=== PATIENT | female | born 1940 | race Two or more races ===

== ENCOUNTER 2018-07-28 22:35 | Inpatient (IN) | payer MEDICARE, MEDICAID ==
[~2018-07-28] VITALS: Ht 162.6 cm; Wt 69.4 kg
[~2018-07-28 22:35] MED LIST: AMLO10TA80 PO; DONE5TAB7 MT; DOXY100C2 PO; GABA-531 MT; METO-539 PO; MULT-1146 MT; PROT40 MT
[2018-07-28 23:30] VITALS: BP 136/62
[2018-07-29 00:30] VITALS: BP 130/56
[2018-07-29] MEDS ORDERED: MORPHINE SULFATE 4 MG/ML CPJ (NOT FOR IM USE) IV PRN (03:30)
[2018-07-29] MEDS ORDERED: ACETAMINOPHEN 325MG TABLET PO PRN ×2 (03:30→10:30)
[2018-07-29] MEDS ORDERED: ONDANSETRON HCL 4MG/2ML INJ IV PRN ×2 (03:30→10:30)
[2018-07-29] MEDS ORDERED: CLONIDINE 0.1MG TABLET PO PRN (03:30)
[2018-07-29 04:00] VITALS: BP 151/57
[2018-07-29] MEDS: PANTOPRAZOLE 40MG DR TABLET PO SCH (07:01)
[2018-07-29 08:00] VITALS: BP 150/58
[2018-07-29] MEDS ORDERED: MEDICATION NOT ON FORMULARY EA (Multivitamin (Multi Vitamin Daily) 1 TAB) MT SCH (09:00)
[2018-07-29] MEDS ORDERED: MEDICATION NOT ON FORMULARY EA (Pantoprazole Sodium (Protonix) 1 TAB) MT SCH (09:00)
[2018-07-29] MEDS ORDERED: MEDICATION NOT ON FORMULARY EA (Metoprolol Tartrate 25 MG) PO SCH (09:00)
[2018-07-29] MEDS: DONEPEZIL HCL 5MG TABLET PO SCH (09:26)
[2018-07-29] MEDS: AMLODIPINE 10MG TABLET PO SCH (09:27)
[2018-07-29] MEDS: MULTIVITAMINS,THER W-MINERALS TABLET PO SCH (09:27)
[2018-07-29] MEDS: METOPROLOL TARTRATE 25MG TABLET PO SCH (09:28)
[2018-07-29 09:40] LABS: BASOPHILS % 0.7 % (0.0-2.0); EOSINOPHILS % 0.6 % (0.0-5.0); HEMATOCRIT. 37.8 % (36.0-48.0); HEMOGLOBIN. 12.5 g/dL (12.0-16.0); LYMPHOCYTES % 25.3 % (20.0-50.0); MEAN CORPUSCULAR HEMOGLOBIN 29.3 pg (28.0-32.0); MEAN CORPUSCULAR VOLUME 88.1 fL (81.0-99.0); MEAN PLATELET VOLUME 8.4 fl (7.4-10.4); MONOCYTES % 6.1 % (2.0-8.0); NEUTROPHILS % 67.3 % (40.0-76.0); PLATELET 253 x1000/uL (130-400); RED BLOOD CELL COUNT 4.29 mill/uL (4.2-5.4); RED CELL DISTRIBUTION WIDTH 16.1 % (11.6-14.6)
[2018-07-29 10:08] LABS: CHLORIDE 110 mEq/L (98-107)
[2018-07-29] MEDS ORDERED: TRAMADOL 50MG TABLET PO PRN (10:30)
[2018-07-29] MEDS ORDERED: NA PHOS,M-B/NA PHOS,DI-BA ENEMA 118ML PR PRN (10:30)
[2018-07-29] MEDS ORDERED: DOCUSATE SODIUM 100MG CAPSULE PO PRN (10:30)
[2018-07-29] MEDS ORDERED: ZOLPIDEM TARTRATE 5MG TABLET PO PRN (10:30)
[2018-07-29] MEDS ORDERED: IPRATROPIUM/ALBUTEROL 0.5-3(2.5)MG/3ML NEB INH PRN (10:30)
[2018-07-29] MEDS ORDERED: MAGNESIUM/ALUMINUM HYDROXIDE/SIMETHICONE 30ML UDC PO PRN (10:30)
[2018-07-29] MEDS ORDERED: NITROGLYCERIN 0.4MG TABLET SL SL PRN (10:30)
[2018-07-29] MEDS ORDERED: VANCOMYCIN 1250MG in DEXTROSE 5% WATER 250ML IV NR ×3 (11:00→12:30)
[2018-07-29] MEDS ORDERED: LIDOCAINE HCL/PF 1% 10 MG/ML 5ML VIAL IJ NR (11:30)
[2018-07-29 12:00] VITALS: BP 147/61
[2018-07-29] MEDS: FAMOTIDINE 20MG TABLET PO SCH (12:35)
[2018-07-29] MEDS: PIPERACILLIN/TAZ 3.375G PREMIX 50 ML IV SCH ×2 (12:36→20:51)
[2018-07-29] MEDS: ENOXAPARIN 40MG/0.4ML SYR SUBCUT SCH (12:36)
[2018-07-29] MEDS ORDERED: DEXTROSE 50% WATER 50ML SYRINGE IV PRN (13:00)
[2018-07-29 15:33] LABS: T4 FREE 1.32 ng/dL (0.76-1.46)
[2018-07-29 16:01] LABS: FOLIC ACID (FOLATE) SERUM 14.3 ng/mL (>5.38)
[2018-07-29] MEDS: INSULIN LISPRO 100 UNITS/ML SUBCUT SCH ×2 (17:27→20:55)
[2018-07-29] MEDS: BLOOD SUGAR DIAGNOSTIC STRIP TEST SCH ×2 (17:27→20:55)
[2018-07-29 20:00] VITALS: BP 117/55
[2018-07-29] MEDS: GABAPENTIN 300MG CAPSULE PO SCH (20:47)
[2018-07-29] MEDS: ASCORBIC ACID 500 MG TABLET PO SCH (20:47)
[2018-07-29] MEDS ORDERED: MEDICATION NOT ON FORMULARY EA (Gabapentin 1 CAP) MT SCH (21:00)
[2018-07-30] VITALS: BP 112/56
[2018-07-30] MEDS ORDERED: LIDOCAINE HCL/PF 1% 10 MG/ML 30ML VIAL INFIL NR (01:00)
[2018-07-30 04:00] VITALS: BP 114/64
[2018-07-30] MEDS: PIPERACILLIN/TAZ 3.375G PREMIX 50 ML IV SCH ×3 (04:54→22:53)
[2018-07-30] MEDS ORDERED: VANCOMYCIN 750 MG PREMIX 150 ML IV SCH (06:00)
[2018-07-30] MEDS: PANTOPRAZOLE 40MG DR TABLET PO SCH (06:33)
[2018-07-30] MEDS: BLOOD SUGAR DIAGNOSTIC STRIP TEST SCH ×4 (06:49→21:12)
[2018-07-30] MEDS: INSULIN LISPRO 100 UNITS/ML SUBCUT SCH ×4 (07:50→21:00)
[2018-07-30 08:00] VITALS: BP 156/68
[2018-07-30] MEDS: VANCOMYCIN 1 G PREMIX 200 ML IV SCH (09:36)
[2018-07-30] MEDS: ENOXAPARIN 40MG/0.4ML SYR SUBCUT SCH (09:36)
[2018-07-30] MEDS: METOPROLOL TARTRATE 25MG TABLET PO SCH (09:37)
[2018-07-30] MEDS: ZINC SULFATE 220 MG ( 50 ) CAPSULE PO SCH (09:37)
[2018-07-30] MEDS: AMLODIPINE 10MG TABLET PO SCH (09:39)
[2018-07-30] MEDS: DONEPEZIL HCL 5MG TABLET PO SCH (09:39)
[2018-07-30] MEDS: FAMOTIDINE 20MG TABLET PO SCH (09:39)
[2018-07-30] MEDS: MULTIVITAMINS,THER W-MINERALS TABLET PO SCH (09:39)
[2018-07-30] MEDS: ASCORBIC ACID 500 MG TABLET PO SCH ×2 (09:43→20:50)
[2018-07-30 12:00] VITALS: BP 138/69
[2018-07-30] MEDS ORDERED: NEOMY SULF/BACITRAC ZN/POLY OINT 28GM TOP PRN (12:00)
[2018-07-30 16:00] VITALS: BP 112/53
[2018-07-30 20:00] VITALS: BP 146/61
[2018-07-30] MEDS: GABAPENTIN 300MG CAPSULE PO SCH (20:50)
[2018-07-31 00:10] VITALS: BP 146/64
[2018-07-31] MEDS: VANCOMYCIN 1 G PREMIX 200 ML IV SCH (03:14)
[2018-07-31 04:00] VITALS: BP 147/63
[2018-07-31] MEDS: PIPERACILLIN/TAZ 3.375G PREMIX 50 ML IV SCH ×2 (06:16→14:50)
[2018-07-31] MEDS: PANTOPRAZOLE 40MG DR TABLET PO SCH (06:55)
[2018-07-31] MEDS: BLOOD SUGAR DIAGNOSTIC STRIP TEST SCH ×4 (06:56→22:24)
[2018-07-31] MEDS: INSULIN LISPRO 100 UNITS/ML SUBCUT SCH ×4 (07:50→21:00)
[2018-07-31 08:00] VITALS: BP 133/58
[2018-07-31] MEDS: MULTIVITAMINS,THER W-MINERALS TABLET PO SCH (09:59)
[2018-07-31] MEDS: AMLODIPINE 5MG TABLET PO SCH (09:59)
[2018-07-31] MEDS: ASCORBIC ACID 500 MG TABLET PO SCH ×2 (10:00→22:09)
[2018-07-31] MEDS: DONEPEZIL HCL 5MG TABLET PO SCH (10:00)
[2018-07-31] MEDS: FAMOTIDINE 20MG TABLET PO SCH (10:00)
[2018-07-31] MEDS: METOPROLOL TARTRATE 25MG TABLET PO SCH (10:01)
[2018-07-31] MEDS: ENOXAPARIN 40MG/0.4ML SYR SUBCUT SCH (10:01)
[2018-07-31 12:00] VITALS: BP 115/53
[2018-07-31] MEDS: ZINC SULFATE 220 MG ( 50 ) CAPSULE PO SCH (14:31)
[2018-07-31 15:41] LABS: CLARITY URINE CLEAR (CLEAR); COLOR URINE YELLOW (YELLOW); KETONES URINE NEGATIVE (NEGATIVE); LEUKOCYTE ESTERASE URINE 1+ (NEGATIVE); NITRITE URINE NEGATIVE (NEGATIVE); OCCULT BLOOD URINE NEGATIVE (NEGATIVE); PROTEIN URINE NEGATIVE (NEGATIVE); SPECIFIC GRAVITY URINE 1.016 (1.005-1.030); UROBILINOGEN URINE 0.2 E.U./dL (0.2-1.0)
[2018-07-31 20:00] VITALS: BP 128/56
[2018-07-31] MEDS: GABAPENTIN 300MG CAPSULE PO SCH (22:09)
[2018-08-01] VITALS: BP 128/66
[2018-08-01] MEDS: PIPERACILLIN/TAZ 3.375G PREMIX 50 ML IV SCH ×4 (00:01→20:44)
[2018-08-01] MEDS: VANCOMYCIN 1 G PREMIX 200 ML IV SCH (00:02)
[2018-08-01 04:00] VITALS: BP 129/65
[2018-08-01 07:06] LABS: CHLORIDE 108 mEq/L (98-107)
[2018-08-01] MEDS: INSULIN LISPRO 100 UNITS/ML SUBCUT SCH ×4 (07:29→20:44)
[2018-08-01] MEDS: BLOOD SUGAR DIAGNOSTIC STRIP TEST SCH ×4 (07:29→20:44)
[2018-08-01 08:00] VITALS: BP 112/79
[2018-08-01] MEDS: ZINC SULFATE 220 MG ( 50 ) CAPSULE PO SCH (08:37)
[2018-08-01] MEDS: MULTIVITAMINS,THER W-MINERALS TABLET PO SCH (08:37)
[2018-08-01] MEDS: FAMOTIDINE 20MG TABLET PO SCH (08:37)
[2018-08-01] MEDS: DONEPEZIL HCL 5MG TABLET PO SCH (08:37)
[2018-08-01] MEDS: ASCORBIC ACID 500 MG TABLET PO SCH ×2 (08:37→20:44)
[2018-08-01] MEDS: METOPROLOL TARTRATE 25MG TABLET PO SCH (08:38)
[2018-08-01] MEDS: ENOXAPARIN 40MG/0.4ML SYR SUBCUT SCH (08:38)
[2018-08-01] MEDS: AMLODIPINE 5MG TABLET PO SCH (08:38)
[2018-08-01 12:00] VITALS: BP 155/58
[2018-08-01 16:00] VITALS: BP 150/75
[2018-08-01] MEDS: VANCOMYCIN 750 MG PREMIX 150 ML IV SCH (17:36)
[2018-08-01 20:00] VITALS: BP 144/63
[2018-08-01] MEDS: GABAPENTIN 300MG CAPSULE PO SCH (20:44)
[2018-08-02] VITALS: BP 141/66
[2018-08-02 04:00] VITALS: BP 134/72
[2018-08-02] MEDS: PIPERACILLIN/TAZ 3.375G PREMIX 50 ML IV SCH ×3 (04:00→20:00)
[2018-08-02] MEDS: VANCOMYCIN 750 MG PREMIX 150 ML IV SCH ×2 (06:00→18:00)
[2018-08-02] MEDS: INSULIN LISPRO 100 UNITS/ML SUBCUT SCH ×4 (06:38→21:00)
[2018-08-02] MEDS: BLOOD SUGAR DIAGNOSTIC STRIP TEST SCH ×4 (06:38→21:00)
[2018-08-02 08:00] VITALS: BP 125/51
[2018-08-02] MEDS: AMLODIPINE 5MG TABLET PO SCH (09:19)
[2018-08-02] MEDS: DONEPEZIL HCL 5MG TABLET PO SCH (09:19)
[2018-08-02] MEDS: ZINC SULFATE 220 MG ( 50 ) CAPSULE PO SCH (09:19)
[2018-08-02] MEDS: MULTIVITAMINS,THER W-MINERALS TABLET PO SCH (09:19)
[2018-08-02] MEDS: METOPROLOL TARTRATE 25MG TABLET PO SCH (09:20)
[2018-08-02] MEDS: FAMOTIDINE 20MG TABLET PO SCH (09:20)
[2018-08-02] MEDS: ENOXAPARIN 40MG/0.4ML SYR SUBCUT SCH (09:21)
[2018-08-02] MEDS: ASCORBIC ACID 500 MG TABLET PO SCH ×2 (09:28→22:31)
[2018-08-02 12:00] VITALS: BP 132/71
[2018-08-02 16:00] VITALS: BP 123/51
[2018-08-02] MEDS: GABAPENTIN 300MG CAPSULE PO SCH (22:32)
[2018-08-03 04:00] VITALS: BP 104/56
[2018-08-03] MEDS: PIPERACILLIN/TAZ 3.375G PREMIX 50 ML IV SCH (04:00)
[2018-08-03] MEDS ORDERED: ZOLPIDEM TARTRATE 5MG TABLET PO PRN (04:30)
[2018-08-03] MEDS ORDERED: TRAMADOL 50MG TABLET PO PRN (04:30)
[2018-08-03] MEDS: VANCOMYCIN 750 MG PREMIX 150 ML IV SCH (06:00)
[2018-08-03] MEDS: ZINC SULFATE 220 MG ( 50 ) CAPSULE PO SCH (09:43)
[2018-08-03] MEDS: MULTIVITAMINS,THER W-MINERALS TABLET PO SCH (09:43)
[2018-08-03] MEDS: DONEPEZIL HCL 5MG TABLET PO SCH (09:47)
[2018-08-03] MEDS: METOPROLOL TARTRATE 25MG TABLET PO SCH (09:47)
[2018-08-03] MEDS: FAMOTIDINE 20MG TABLET PO SCH (09:48)
[2018-08-03] MEDS: AMLODIPINE 5MG TABLET PO SCH (09:48)
[2018-08-03] MEDS: ENOXAPARIN 40MG/0.4ML SYR SUBCUT SCH (09:49)
[2018-08-03] MEDS ORDERED: FLUCONAZOLE 200 MG/100ML BAG 100 ML IV NR (11:00)
[2018-08-03] MEDS ORDERED: FLUCONAZOLE 200MG/100ML PREMIX IV NR (11:00)
[2018-08-03 13:55] VITALS: BP 132/64
[2018-08-04] MEDS ORDERED: FLUCONAZOLE 100MG TABLET PO SCH (09:00)
== END 2018-08-03 14:30 | DRG 314 ==
LOC: 6EST 22:35
PROVIDERS: ADMIT Internal Medicine; ATTEND Internal Medicine
PROC: 0JPT3WZ Removal of Totally Implantable Vascular Access Device from Trunk Subcutaneous Tissue and Fascia, Percutaneous Approach (ICD-10-PCS; principal; 2018-07-30)
DX: T80.211A Bloodstream infection due to central venous catheter, initial encounter (principal); A41.9 Sepsis, unspecified organism; N39.0 Urinary tract infection, site not specified; E11.622 Type 2 diabetes mellitus with other skin ulcer; F03.90 Unspecified dementia, unspecified severity, without behavioral disturbance, psychotic disturbance, mood disturbance, and anxiety; I10 Essential (primary) hypertension; K21.9 Gastro-esophageal reflux disease without esophagitis; F20.9 Schizophrenia, unspecified; Y84.8 Other medical procedures as the cause of abnormal reaction of the patient, or of later complication, without mention of misadventure at the time of the procedure; Y92.89 Other specified places as the place of occurrence of the external cause; Z88.2 Allergy status to sulfonamides; Z88.9 Allergy status to unspecified drugs, medicaments and biological substances; Z79.4 Long term (current) use of insulin
CPT/HCPCS: 36415; 71045; 80048; 80061; 80202; 81003; 82607; 82746; 82962; 83036; 83540; 83550; 84439; 84443; 85025; 87040; 87070; 87077; 87086; 87106; 87186; 93005; 93970; C1893; J1450; J1650; J2270; J2543; J3370; J3490; J7040; J7060

== ENCOUNTER 2019-01-08 22:29 | Inpatient (IN) | payer MEDICARE, MEDICAID ==
[~2019-01-08] VITALS: Ht 165.1 cm; Wt 78.3 kg
[2019-01-08] MEDS ORDERED: FAMOTIDINE 20MG/2ML VIAL IV STA (22:50)
[2019-01-08] MEDS ORDERED: ONDANSETRON HCL 4MG/2ML INJ IV STA (22:50)
[2019-01-08] MEDS ORDERED: SODIUM CHLORIDE 0.9% 1,000 ML IV ONE (23:25)
[2019-01-08 23:52] LABS: BASOPHILS % 0.1 % (0.0-2.0); HEMATOCRIT. 35.8 % (36.0-48.0); HEMOGLOBIN. 11.8 g/dL (12.0-16.0); LYMPHOCYTES % 10.4 % (20.0-50.0); MEAN CORPUSCULAR HEMOGLOBIN 29.1 pg (28.0-32.0); MEAN PLATELET VOLUME 8.5 fl (7.4-10.4); NEUTROPHILS % 86.5 % (40.0-76.0); PLATELET 347 x1000/uL (130-400); RED BLOOD CELL COUNT 4.07 mill/uL (4.2-5.4)
[2019-01-08 23:56] LABS: CHLORIDE 79 mEq/L (98-107)
[2019-01-09 00:23] LABS: BG BASE EXCESS 8.9 mmol/L (-2.0-2.0); BG CARBOXYHEMOGLOBIN 0.3 % (0.5-1.5); BG DEOXYHEMOGLOBIN 2.3 % (0.0-5.0); BG FRACTION INSPIRED OXYGEN 21; BG HCO3 ACT 27.2 mmol/L (22.0-26.0); BG METHEMOGLOBIN 0.1 % (0.0-1.5); BG OXYGEN SATURATION 97.7 % (92.0-98.5); BG OXYHEMOGLOBIN 97.3 % (94.0-97.0); BG PCO2 20.7 mmHg (35.0-45.0); BG PH 7.737 (7.350-7.450); BG SAMPLE SITE LEFT BRACHIAL; BG TOTAL HEMOGLOBIN 11.7 g/dL (12.0-18.0); BG VENT MODE ROOM AIR
[2019-01-09] MEDS ORDERED: MORPHINE SULFATE 2 MG/ML CPJ (NOT FOR IM USE) IV ONE (01:00)
[2019-01-09 01:15] LABS: INR 1.1; PARTIAL THROMBOPLASTIN TIME 23.6 sec (23.4-31.0); PROTHROMBIN TIME 11.2 sec (9.1-11.1)
[2019-01-09] MEDS ORDERED: MORPHINE SULFATE 4 MG/ML CPJ (NOT FOR IM USE) IV SCH (01:17)
[2019-01-09 02:30] LABS: CLARITY URINE TURBID (CLEAR); COLOR URINE DARK YELLOW (YELLOW); KETONES URINE TRACE (NEGATIVE); LEUKOCYTE ESTERASE URINE 3+ (NEGATIVE); NITRITE URINE NEGATIVE (NEGATIVE); OCCULT BLOOD URINE 2+ (NEGATIVE); PROTEIN URINE 1+ (NEGATIVE); SPECIFIC GRAVITY URINE 1.013 (1.005-1.030)
[2019-01-09] MEDS ORDERED: SODIUM CHLORIDE 0.9% 1,000 ML IV ONE (05:32)
[2019-01-09 05:42] LABS: HEMATOCRIT. 33.1 % (36.0-48.0); HEMOGLOBIN. 10.9 g/dL (12.0-16.0); MEAN CORPUSCULAR HEMOGLOBIN 29.1 pg (28.0-32.0); MEAN PLATELET VOLUME 8.5 fl (7.4-10.4); PLATELET 354 x1000/uL (130-400); RED BLOOD CELL COUNT 3.76 mill/uL (4.2-5.4); RED CELL DISTRIBUTION WIDTH 15.6 % (11.6-14.6)
[2019-01-09 07:23] LABS: NUCLEATED RED BLOOD CELLS 1 /100 WBC; PLATELET ESTIMATE NORMAL
[2019-01-09 11:00] VITALS: BP 131/85
[2019-01-09] MEDS ORDERED: PANTOPRAZOLE SODIUM 40 MG/VIAL IV SCH (11:45)
[2019-01-09 12:00] VITALS: BP 125/86
[2019-01-09] MEDS ORDERED: ONDANSETRON HCL 4MG/2ML INJ IV PRN (12:15)
[2019-01-09] MEDS ORDERED: FLUCONAZOLE/NS(NEO) 2MG/ML IVPB IV SCH (12:30)
[2019-01-09 13:20] LABS: BG BASE EXCESS 8.2 mmol/L (-2.0-2.0); BG CARBOXYHEMOGLOBIN 0.3 % (0.5-1.5); BG DEOXYHEMOGLOBIN 1.2 % (0.0-5.0); BG FRACTION INSPIRED OXYGEN 28; BG HCO3 ACT 31.7 mmol/L (22.0-26.0); BG METHEMOGLOBIN 0.4 % (0.0-1.5); BG OXYGEN SATURATION 98.8 % (92.0-98.5); BG OXYHEMOGLOBIN 98.1 % (94.0-97.0); BG PCO2 39.8 mmHg (35.0-45.0); BG PH 7.519 (7.350-7.450); BG PO2 168.9 mmHg (75.0-100.0); BG SAMPLE SITE RIGHT BRACHIAL; BG TOTAL HEMOGLOBIN 9.8 g/dL (12.0-18.0); BG VENT MODE NASAL CANNULA
[2019-01-09] MEDS ORDERED: PIPERACILLIN/TAZ 2.25G PREMIX 50 ML IV SCH (14:00)
[2019-01-09] MEDS ORDERED: KCL 20MEQ/100ML PREMIX 100 ML IV NR (14:00)
[2019-01-09] MEDS ORDERED: GENTAMICIN SULFATE 60 MG in SODIUM CHLORIDE 0.9% 50 ML IV NR (14:00)
[2019-01-09] MEDS ORDERED: GENTAMICIN 60MG PREMIX 50 ML IV NR (14:00)
[2019-01-09] MEDS: PANTOPRAZOLE SODIUM 40 MG/VIAL IV SCH ×2 (14:09→17:54)
[2019-01-09] MEDS: DEXT 5%/0.9% NACL 1,000 ML IV SCH (14:10)
[2019-01-09 14:17] LABS: TOTAL IRON BINDING CAPACITY 313 ug/dL (250-450)
[2019-01-09] MEDS ORDERED: FLUCONAZOLE 100MG/50ML in BAG IV SCH (14:30)
[2019-01-09] MEDS ORDERED: VANCOMYCIN 1 G PREMIX 200 ML IV NR ×2 (15:30→22:00)
[2019-01-09 16:00] VITALS: BP 147/112
[2019-01-09 17:00] VITALS: BP 118/47
[2019-01-09 19:47] LABS: BASOPHILS % 0.2 % (0.0-2.0); HEMOGLOBIN. 9.5 g/dL (12.0-16.0); LYMPHOCYTES % 13.7 % (20.0-50.0); MEAN CORPUSCULAR HEMOGLOBIN 29.2 pg (28.0-32.0); MEAN CORPUSCULAR VOLUME 88.8 fL (81.0-99.0); MEAN PLATELET VOLUME 8.2 fl (7.4-10.4); MONOCYTES % 3.2 % (2.0-8.0); NEUTROPHILS % 82.9 % (40.0-76.0); PLATELET 325 x1000/uL (130-400); RED BLOOD CELL COUNT 3.26 mill/uL (4.2-5.4); RED CELL DISTRIBUTION WIDTH 15.3 % (11.6-14.6)
[2019-01-09 19:49] LABS: CHLORIDE 93 mEq/L (98-107)
[2019-01-09 19:55] LABS: PHOSPHORUS 3.8 mg/dL (2.5-4.9)
[2019-01-09] MEDS: PIPERACILLIN/TAZ 2.25G PREMIX 50 ML IV SCH (20:00)
[2019-01-09 20:04] LABS: CLARITY URINE CLOUDY (CLEAR); COLOR URINE YELLOW (YELLOW); KETONES URINE TRACE (NEGATIVE); LEUKOCYTE ESTERASE URINE 2+ (NEGATIVE); NITRITE URINE NEGATIVE (NEGATIVE); OCCULT BLOOD URINE 2+ (NEGATIVE); PROTEIN URINE TRACE (NEGATIVE); SPECIFIC GRAVITY URINE 1.013 (1.005-1.030); UROBILINOGEN URINE 0.2 E.U./dL (0.2-1.0)
[2019-01-10] VITALS: BP 132/54
[2019-01-10] MEDS: DEXT 5%/0.9% NACL 1,000 ML IV SCH ×2 (01:50→14:27)
[2019-01-10] MEDS: PIPERACILLIN/TAZ 2.25G PREMIX 50 ML IV SCH ×4 (02:00→20:29)
[2019-01-10 04:00] VITALS: BP 118/52
[2019-01-10 06:07] LABS: BASOPHILS % 0.1 % (0.0-2.0); EOSINOPHILS % 0.2 % (0.0-5.0); HEMATOCRIT. 29.4 % (36.0-48.0); HEMOGLOBIN. 9.5 g/dL (12.0-16.0); LYMPHOCYTES % 19.4 % (20.0-50.0); MEAN CORPUSCULAR HEMOGLOBIN 28.8 pg (28.0-32.0); MEAN CORPUSCULAR VOLUME 89.3 fL (81.0-99.0); MEAN PLATELET VOLUME 8.1 fl (7.4-10.4); MONOCYTES % 5.1 % (2.0-8.0); NEUTROPHILS % 75.2 % (40.0-76.0); PLATELET 291 x1000/uL (130-400); RED BLOOD CELL COUNT 3.29 mill/uL (4.2-5.4); RED CELL DISTRIBUTION WIDTH 15.3 % (11.6-14.6)
[2019-01-10 06:23] LABS: CHLORIDE 97 mEq/L (98-107)
[2019-01-10 06:53] LABS: GENTAMICIN RANDOM < 0.2 ug/mL
[2019-01-10 08:00] VITALS: BP 104/41
[2019-01-10 08:18] LABS: BG BASE EXCESS 8.8 mmol/L (-2.0-2.0); BG CARBOXYHEMOGLOBIN 0.2 % (0.5-1.5); BG DEOXYHEMOGLOBIN 1.5 % (0.0-5.0); BG FRACTION INSPIRED OXYGEN 21; BG HCO3 ACT 31.5 mmol/L (22.0-26.0); BG METHEMOGLOBIN 0.3 % (0.0-1.5); BG OXYGEN SATURATION 98.5 % (92.0-98.5); BG PCO2 35.5 mmHg (35.0-45.0); BG PH 7.566 (7.350-7.450); BG SAMPLE SITE RIGHT RADIAL; BG TOTAL HEMOGLOBIN 8.3 g/dL (12.0-18.0); BG VENT MODE ROOM AIR
[2019-01-10] MEDS: PANTOPRAZOLE SODIUM 40 MG/VIAL IV SCH ×2 (09:52→17:30)
[2019-01-10 12:19] VITALS: BP 116/41
[2019-01-10] MEDS ORDERED: VANCOMYCIN 750 MG PREMIX 150 ML IV SCH (14:00)
[2019-01-10] MEDS ORDERED: POTASSIUM CHLORIDE 20MEQ TABLET SR PO NR (15:15)
[2019-01-10 17:09] VITALS: BP 105/46
[2019-01-10] MEDS: DEXT 5%/0.9% NACL KCL 20MEQ/L 1,000 ML IV SCH (17:26)
[2019-01-10 20:28] VITALS: BP 125/51
[2019-01-10] MEDS: FLUCONAZOLE 100MG/50ML in BAG IV SCH ×3 (23:53)
[2019-01-11 00:38] VITALS: BP 123/46
[2019-01-11] MEDS: PIPERACILLIN/TAZ 2.25G PREMIX 50 ML IV SCH ×3 (03:02→13:16)
[2019-01-11 04:00] VITALS: BP 108/48
[2019-01-11] MEDS: DEXT 5%/0.9% NACL KCL 20MEQ/L 1,000 ML IV SCH (05:40)
[2019-01-11 07:17] LABS: BASOPHILS % 0.3 % (0.0-2.0); EOSINOPHILS % 0.5 % (0.0-5.0); HEMATOCRIT. 26.8 % (36.0-48.0); HEMOGLOBIN. 8.7 g/dL (12.0-16.0); LYMPHOCYTES % 25.1 % (20.0-50.0); MEAN CORPUSCULAR HEMOGLOBIN 29.2 pg (28.0-32.0); MEAN CORPUSCULAR VOLUME 89.7 fL (81.0-99.0); MEAN PLATELET VOLUME 8.4 fl (7.4-10.4); MONOCYTES % 4.4 % (2.0-8.0); NEUTROPHILS % 69.7 % (40.0-76.0); PLATELET 266 x1000/uL (130-400); RED BLOOD CELL COUNT 2.99 mill/uL (4.2-5.4); RED CELL DISTRIBUTION WIDTH 15.7 % (11.6-14.6)
[2019-01-11] MEDS: PANTOPRAZOLE SODIUM 40 MG/VIAL IV SCH ×2 (07:55→18:34)
[2019-01-11 08:00] VITALS: BP 120/47
[2019-01-11 12:00] VITALS: BP 88/33
[2019-01-11] MEDS ORDERED: KCL 20MEQ/100ML PREMIX 100 ML IV NR (12:00)
[2019-01-11] MEDS: POTASSIUM CHLORIDE INJ 40 MEQ in DEXT 5%/0.9% NACL 1,000 ML IV SCH (15:38)
[2019-01-11 16:00] VITALS: BP 109/56
[2019-01-11] MEDS: MEGESTROL ACETATE 400 MG/10 ML UDC PO SCH (18:34)
[2019-01-11 20:00] VITALS: BP 160/42
[2019-01-11] MEDS: CEPHALEXIN 250 MG/5 ML 100ML PO SCH (21:39)
[2019-01-11] MEDS: MUPIROCIN 2% OINT 22GM NS SCH (21:39)
[2019-01-12] VITALS: BP 127/55
[2019-01-12] MEDS: POTASSIUM CHLORIDE INJ 40 MEQ in DEXT 5%/0.9% NACL 1,000 ML IV SCH (01:36)
[2019-01-12 04:00] VITALS: BP 129/45
[2019-01-12 06:35] LABS: BASOPHILS % 0.3 % (0.0-2.0); EOSINOPHILS % 0.3 % (0.0-5.0); HEMATOCRIT. 26.3 % (36.0-48.0); HEMOGLOBIN. 8.6 g/dL (12.0-16.0); LYMPHOCYTES % 24.5 % (20.0-50.0); MEAN CORPUSCULAR HEMOGLOBIN 29.3 pg (28.0-32.0); MEAN CORPUSCULAR VOLUME 89.4 fL (81.0-99.0); MEAN PLATELET VOLUME 7.8 fl (7.4-10.4); MONOCYTES % 3.5 % (2.0-8.0); NEUTROPHILS % 71.4 % (40.0-76.0); PLATELET 283 x1000/uL (130-400); RED BLOOD CELL COUNT 2.94 mill/uL (4.2-5.4); RED CELL DISTRIBUTION WIDTH 16.3 % (11.6-14.6)
[2019-01-12 06:42] LABS: CHLORIDE 114 mEq/L (98-107)
[2019-01-12] MEDS: CEPHALEXIN 250 MG/5 ML 100ML PO SCH ×3 (06:59→21:13)
[2019-01-12 08:00] VITALS: BP 120/53
[2019-01-12] MEDS: FLUCONAZOLE 100MG TABLET PO SCH (09:41)
[2019-01-12] MEDS: MEGESTROL ACETATE 400 MG/10 ML UDC PO SCH ×2 (09:41→19:04)
[2019-01-12] MEDS: PANTOPRAZOLE SODIUM 40 MG/VIAL IV SCH ×2 (09:42→19:04)
[2019-01-12] MEDS: RISPERIDONE 0.25MG TABLET PO SCH ×2 (09:42→21:13)
[2019-01-12] MEDS: RISPERIDONE 0.25MG TABLET PO PRN ×2 (09:42→09:43)
[2019-01-12] MEDS: MUPIROCIN 2% OINT 22GM NS SCH ×3 (09:42→21:14)
[2019-01-12] MEDS: [UNRECOGNIZED DRUG - REMARK] IV SCH ×6 (11:00→18:30)
[2019-01-12] MEDS ORDERED: POTASSIUM PHOS,M-BASIC-D-BASIC 30 MMOL in DEXT 5% WATER 500 ML IV SCH (11:00)
[2019-01-12 12:00] VITALS: BP 118/53
[2019-01-12] MEDS: POTASSIUM CHLORIDE INJ 30 MEQ in DEXT 5%/0.45% NACL 1000ML 1,000 ML IV SCH ×2 (12:35→18:30)
[2019-01-12 16:00] VITALS: BP 120/53
[2019-01-12 20:00] VITALS: BP 107/65
[2019-01-13 05:30] VITALS: BP 126/60
[2019-01-13] MEDS: CEPHALEXIN 250 MG/5 ML 100ML PO SCH ×3 (05:38→21:18)
[2019-01-13 08:00] VITALS: BP 129/46
[2019-01-13 08:01] LABS: BASOPHILS % 0.4 % (0.0-2.0); EOSINOPHILS % 0.4 % (0.0-5.0); HEMATOCRIT. 29.4 % (36.0-48.0); HEMOGLOBIN. 9.4 g/dL (12.0-16.0); LYMPHOCYTES % 41.5 % (20.0-50.0); MEAN CORPUSCULAR VOLUME 93.9 fL (81.0-99.0); MEAN PLATELET VOLUME 7.9 fl (7.4-10.4); MONOCYTES % 4.7 % (2.0-8.0); PLATELET 268 x1000/uL (130-400); RED BLOOD CELL COUNT 3.13 mill/uL (4.2-5.4); RED CELL DISTRIBUTION WIDTH 17.5 % (11.6-14.6)
[2019-01-13 08:14] LABS: CHLORIDE 115 mEq/L (98-107)
[2019-01-13 08:30] LABS: PHOSPHORUS 1.6 mg/dL (2.5-4.9)
[2019-01-13] MEDS: PANTOPRAZOLE SODIUM 40 MG/VIAL IV SCH ×2 (08:50→18:27)
[2019-01-13] MEDS: MEGESTROL ACETATE 400 MG/10 ML UDC PO SCH ×2 (08:50→18:28)
[2019-01-13] MEDS: RISPERIDONE 0.25MG TABLET PO SCH ×2 (08:51→20:41)
[2019-01-13] MEDS: FLUCONAZOLE 100MG TABLET PO SCH (08:51)
[2019-01-13] MEDS: MUPIROCIN 2% OINT 22GM NS SCH ×2 (08:57→20:41)
[2019-01-13 12:00] VITALS: BP 159/79
[2019-01-13] MEDS: [UNRECOGNIZED DRUG - REMARK] IV SCH ×3 (12:43)
[2019-01-13] MEDS ORDERED: MAGNESIUM 1 G PREMIX 100 ML IV SCH (13:00)
[2019-01-13] MEDS ORDERED: DEXT 5%/0.45% NACL KCL 20MEQ/L 1,000 ML IV ONE (13:00)
[2019-01-13] MEDS ORDERED: SODIUM PHOS,M-BASIC-D-BASIC 30 MM in DEXT 5% WATER 500 ML IV SCH (14:00)
[2019-01-14] VITALS: BP 153/62
[2019-01-14] MEDS: CEPHALEXIN 250 MG/5 ML 100ML PO SCH ×2 (06:10→14:22)
[2019-01-14 08:00] VITALS: BP_SYST 13; BP_SYST 136; BP_DIAS 63
[2019-01-14] MEDS: PANTOPRAZOLE SODIUM 40 MG/VIAL IV SCH ×2 (08:23→17:32)
[2019-01-14] MEDS: FLUCONAZOLE 100MG TABLET PO SCH (08:23)
[2019-01-14] MEDS: MEGESTROL ACETATE 400 MG/10 ML UDC PO SCH ×2 (08:23→17:32)
[2019-01-14] MEDS: ONDANSETRON HCL 4MG/2ML INJ IV PRN ×3 (08:23→18:38)
[2019-01-14 08:24] LABS: CHLORIDE 114 mEq/L (98-107)
[2019-01-14 08:31] LABS: PHOSPHORUS 3.3 mg/dL (2.5-4.9)
[2019-01-14] MEDS: RISPERIDONE 0.25MG TABLET PO SCH ×2 (08:34→21:00)
[2019-01-14] MEDS: MUPIROCIN 2% OINT 22GM NS SCH ×2 (08:35→21:00)
[2019-01-14] MEDS: [UNRECOGNIZED DRUG - REMARK] IV SCH ×3 (08:35)
[2019-01-14 12:00] VITALS: BP 134/63
[2019-01-14] MEDS: CEPHALEXIN 250MG CAPSULE PO SCH ×2 (14:30→22:06)
[2019-01-14] MEDS ORDERED: CEPHALEXIN 250MG CAPSULE PO SCH (14:30)
[2019-01-14 16:00] VITALS: BP 148/67
[2019-01-14 16:53] LABS: HEMATOCRIT. 28.9 % (36.0-48.0); HEMOGLOBIN. 9.5 g/dL (12.0-16.0); MEAN CORPUSCULAR HEMOGLOBIN 29.3 pg (28.0-32.0); MEAN CORPUSCULAR VOLUME 89.4 fL (81.0-99.0); MEAN PLATELET VOLUME 7.5 fl (7.4-10.4); PLATELET 290 x1000/uL (130-400); RED BLOOD CELL COUNT 3.23 mill/uL (4.2-5.4); RED CELL DISTRIBUTION WIDTH 17.2 % (11.6-14.6)
[2019-01-14 17:04] LABS: CHLORIDE 114 mEq/L (98-107)
[2019-01-14 20:00] VITALS: BP 152/55
[2019-01-14] MEDS ORDERED: POTASSIUM PHOS,M-BASIC-D-BASIC 20 MMOL in DEXTROSE 5% WATER 250 ML IV NR (20:00)
[2019-01-14] MEDS ORDERED: MAGNESIUM 4 G PREMIX 100 ML IV NR (20:00)
[2019-01-14 20:59] LABS: PLATELET ESTIMATE NORMAL
[2019-01-15] VITALS: BP 146/60
[2019-01-15 04:00] VITALS: BP 141/62
[2019-01-15] MEDS: CEPHALEXIN 250MG CAPSULE PO SCH (06:23)
[2019-01-15 08:00] VITALS: BP 140/56
[2019-01-15 09:03] LABS: BASOPHILS % 0.5 % (0.0-2.0); EOSINOPHILS % 0.8 % (0.0-5.0); HEMATOCRIT. 28.5 % (36.0-48.0); HEMOGLOBIN. 9.2 g/dL (12.0-16.0); LYMPHOCYTES % 40.6 % (20.0-50.0); MEAN CORPUSCULAR VOLUME 89.9 fL (81.0-99.0); MEAN PLATELET VOLUME 7.7 fl (7.4-10.4); MONOCYTES % 6.5 % (2.0-8.0); NEUTROPHILS % 51.6 % (40.0-76.0); PLATELET 278 x1000/uL (130-400); RED BLOOD CELL COUNT 3.17 mill/uL (4.2-5.4); RED CELL DISTRIBUTION WIDTH 17.4 % (11.6-14.6)
[2019-01-15 09:17] LABS: CHLORIDE 115 mEq/L (98-107)
[2019-01-15 09:25] LABS: PHOSPHORUS 3.3 mg/dL (2.5-4.9)
[2019-01-15] MEDS: MUPIROCIN 2% OINT 22GM NS SCH ×2 (09:42→21:30)
[2019-01-15] MEDS: MEGESTROL ACETATE 400 MG/10 ML UDC PO SCH ×2 (09:42→17:18)
[2019-01-15] MEDS: RISPERIDONE 0.25MG TABLET PO SCH ×2 (09:43→21:30)
[2019-01-15] MEDS: PANTOPRAZOLE SODIUM 40 MG/VIAL IV SCH ×2 (09:43→17:18)
[2019-01-15] MEDS: FLUCONAZOLE 100MG TABLET PO SCH (09:43)
[2019-01-15 10:12] LABS: VITAMIN B12 SERUM 1337 pg/mL (211-911)
[2019-01-15 11:20] VITALS: BP 156/61
[2019-01-15 16:00] VITALS: BP 156/64
[2019-01-15 19:58] LABS: INR 1.1; PROTHROMBIN TIME 10.9 sec (9.1-11.1)
[2019-01-15 20:11] VITALS: BP 163/58
[2019-01-15] MEDS: SODIUM CHLORIDE 0.45% 1,000 ML IV SCH (21:29)
[2019-01-16] VITALS (8 sets, daily range): BP systolic 138–152; BP diastolic 61–72
[2019-01-16] MEDS: PANTOPRAZOLE SODIUM 40 MG/VIAL IV SCH ×2 (08:26→17:00)
[2019-01-16] MEDS: MEGESTROL ACETATE 400 MG/10 ML UDC PO SCH ×2 (08:26→17:00)
[2019-01-16] MEDS: RISPERIDONE 0.25MG TABLET PO SCH (08:27)
[2019-01-16] MEDS: MUPIROCIN 2% OINT 22GM NS SCH (08:27)
[2019-01-16] MEDS: SODIUM CHLORIDE 0.45% 1,000 ML IV SCH ×2 (11:52→23:25)
[2019-01-16] MEDS ORDERED: RISPERIDONE 0.25MG TABLET PO PRN (18:00)
[2019-01-16] MEDS: RISPERIDONE 0.5MG TABLET PO SCH (18:42)
[2019-01-16 19:06] LABS: 25-HYDROXY VITAMIN D3 26 ng/mL (.)
[2019-01-16 23:26] LABS: BASOPHILS % 0.8 % (0.0-2.0); EOSINOPHILS % 0.6 % (0.0-5.0); HEMOGLOBIN. 9.5 g/dL (12.0-16.0); LYMPHOCYTES % 41.1 % (20.0-50.0); MEAN CORPUSCULAR HEMOGLOBIN 29.2 pg (28.0-32.0); MEAN CORPUSCULAR VOLUME 89.7 fL (81.0-99.0); MEAN PLATELET VOLUME 7.5 fl (7.4-10.4); MONOCYTES % 6.6 % (2.0-8.0); NEUTROPHILS % 50.9 % (40.0-76.0); PLATELET 343 x1000/uL (130-400); RED BLOOD CELL COUNT 3.24 mill/uL (4.2-5.4); RED CELL DISTRIBUTION WIDTH 17.7 % (11.6-14.6)
[2019-01-16 23:32] LABS: CHLORIDE 116 mEq/L (98-107)
[2019-01-16 23:36] LABS: AMYLASE 74 IU/L (25-115)
[2019-01-16 23:39] LABS: PHOSPHORUS 2.5 mg/dL (2.5-4.9)
[2019-01-17] MEDS: RISPERIDONE 0.5MG TABLET PO SCH ×3 (02:03→20:35)
[2019-01-17 04:01] VITALS: BP 138/60
[2019-01-17 08:35] VITALS: BP 144/60
[2019-01-17] MEDS: PANTOPRAZOLE SODIUM 40 MG/VIAL IV SCH ×3 (08:50→17:00)
[2019-01-17] MEDS: MEGESTROL ACETATE 400 MG/10 ML UDC PO SCH ×2 (08:50→17:00)
[2019-01-17] MEDS: SODIUM CHLORIDE 0.45% 1,000 ML IV SCH (12:45)
[2019-01-17] MEDS ORDERED: ONDANSETRON 4MG ODT PO PRN (15:00)
[2019-01-17 16:00] VITALS: BP 151/67
[2019-01-17 20:00] VITALS: BP 144/66
[2019-01-18 00:07] VITALS: BP 164/66
[2019-01-18] MEDS: SODIUM CHLORIDE 0.45% 1,000 ML IV SCH ×2 (02:01→13:34)
[2019-01-18] MEDS: RISPERIDONE 0.5MG TABLET PO SCH ×3 (02:34→17:53)
[2019-01-18 04:00] VITALS: BP 140/71
[2019-01-18 07:57] LABS: PHOSPHORUS 2.9 mg/dL (2.5-4.9)
[2019-01-18 08:00] VITALS: BP 149/78
[2019-01-18] MEDS: MULTIVITAMINS,THER W-MINERALS TABLET PO SCH (08:09)
[2019-01-18] MEDS: ZINC SULFATE 220 MG ( 50 ) CAPSULE PO SCH (08:09)
[2019-01-18] MEDS: MEGESTROL ACETATE 400 MG/10 ML UDC PO SCH ×2 (08:09→17:52)
[2019-01-18] MEDS: ASCORBIC ACID 500 MG TABLET PO SCH (08:09)
[2019-01-18 08:14] LABS: BASOPHILS % 0.6 % (0.0-2.0); EOSINOPHILS % 0.2 % (0.0-5.0); HEMATOCRIT. 29.9 % (36.0-48.0); HEMOGLOBIN. 9.5 g/dL (12.0-16.0); LYMPHOCYTES % 31.8 % (20.0-50.0); MEAN CORPUSCULAR HEMOGLOBIN 28.8 pg (28.0-32.0); MEAN CORPUSCULAR VOLUME 90.7 fL (81.0-99.0); MONOCYTES % 6.4 % (2.0-8.0); RED CELL DISTRIBUTION WIDTH 18.3 % (11.6-14.6)
[2019-01-18] MEDS: PANTOPRAZOLE SODIUM 40 MG/VIAL IV SCH ×2 (09:00→17:00)
[2019-01-18 10:51] LABS: PLATELET 382 x1000/uL (130-400)
[2019-01-18 12:00] VITALS: BP 146/81
[2019-01-18 16:00] VITALS: BP 148/70
[2019-01-18 20:00] VITALS: BP 144/52
[2019-01-19] VITALS: BP 136/60
[2019-01-19] MEDS: METOCLOPRAMIDE HCL 5MG TABLET PO SCH ×5 (00:07→23:44)
[2019-01-19] MEDS: RISPERIDONE 0.5MG TABLET PO SCH ×2 (03:11→18:49)
[2019-01-19 04:00] VITALS: BP 140/61
[2019-01-19] MEDS: SODIUM CHLORIDE 0.45% 1,000 ML IV SCH ×2 (04:07→17:14)
[2019-01-19] MEDS ORDERED: ONDANSETRON 4MG ODT PO PRN (06:30)
[2019-01-19 08:07] VITALS: BP 130/85
[2019-01-19] MEDS: PANTOPRAZOLE SODIUM 40 MG/VIAL IV SCH ×2 (09:00→17:00)
[2019-01-19] MEDS: ZINC SULFATE 220 MG ( 50 ) CAPSULE PO SCH (09:38)
[2019-01-19] MEDS: MULTIVITAMINS,THER W-MINERALS TABLET PO SCH (09:38)
[2019-01-19] MEDS: ASCORBIC ACID 500 MG TABLET PO SCH (09:39)
[2019-01-19] MEDS: CETIRIZINE 10MG TABLET PO SCH (09:39)
[2019-01-19] MEDS: MEGESTROL ACETATE 400 MG/10 ML UDC PO SCH ×2 (09:39→17:13)
[2019-01-19] MEDS: RISPERIDONE 0.25MG TABLET PO PRN ×3 (12:00→18:33)
[2019-01-19 12:32] VITALS: BP 150/73
[2019-01-19 16:58] VITALS: BP 125/63
[2019-01-19 20:00] VITALS: BP 134/70
[2019-01-20] VITALS (7 sets, daily range): BP systolic 123–149; BP diastolic 61–80
[2019-01-20] MEDS: RISPERIDONE 0.5MG TABLET PO SCH ×3 (02:29→19:00)
[2019-01-20] MEDS: METOCLOPRAMIDE HCL 5MG TABLET PO SCH ×3 (06:56→18:00)
[2019-01-20] MEDS: SODIUM CHLORIDE 0.45% 1,000 ML IV SCH ×2 (07:25→21:20)
[2019-01-20] MEDS: CETIRIZINE 10MG TABLET PO SCH (09:00)
[2019-01-20] MEDS: PANTOPRAZOLE SODIUM 40 MG/VIAL IV SCH ×2 (09:00→18:50)
[2019-01-20] MEDS: MULTIVITAMINS,THER W-MINERALS TABLET PO SCH (09:00)
[2019-01-20] MEDS: MEGESTROL ACETATE 400 MG/10 ML UDC PO SCH ×2 (09:00→17:00)
[2019-01-20] MEDS: ZINC SULFATE 220 MG ( 50 ) CAPSULE PO SCH (09:00)
[2019-01-20] MEDS: ASCORBIC ACID 500 MG TABLET PO SCH (09:00)
[2019-01-20] MEDS ORDERED: SODIUM BICARBONATE 4% (2.4MEQ) 5ML VIAL IV ONE (13:02)
[2019-01-20] MEDS ORDERED: LIDOCAINE HCL 1% 20ML VIAL (Pyxis) INJ ONE (13:02)
[2019-01-20] MEDS ORDERED: ONDANSETRON HCL 4MG/2ML INJ IV PRN (19:30)
[2019-01-21] MEDS: METOCLOPRAMIDE HCL 10MG/2ML VIAL IV SCH ×4 (00:06→17:54)
[2019-01-21] MEDS: RISPERIDONE 0.25MG TABLET PO PRN ×8 (03:06→03:15)
[2019-01-21] MEDS: RISPERIDONE 0.5MG TABLET PO SCH ×3 (03:23→16:56)
[2019-01-21 04:00] VITALS: BP 110/60
[2019-01-21 08:00] VITALS: BP 142/68
[2019-01-21] MEDS: PANTOPRAZOLE SODIUM 40 MG/VIAL IV SCH ×2 (08:51→17:54)
[2019-01-21] MEDS: ASCORBIC ACID 500 MG TABLET PO SCH (09:00)
[2019-01-21] MEDS: CETIRIZINE 10MG TABLET PO SCH (09:00)
[2019-01-21] MEDS: MEGESTROL ACETATE 400 MG/10 ML UDC PO SCH ×2 (09:00→16:56)
[2019-01-21] MEDS: ZINC SULFATE 220 MG ( 50 ) CAPSULE PO SCH (09:00)
[2019-01-21] MEDS: MULTIVITAMINS,THER W-MINERALS TABLET PO SCH (09:00)
[2019-01-21] MEDS ORDERED: CEFAZOLIN SODIUM 1000MG/VIAL IM ONE (09:45)
[2019-01-21] MEDS: SODIUM CHLORIDE 0.45% 1,000 ML IV SCH ×2 (10:05→22:52)
[2019-01-21] MEDS ORDERED: IOHEXOL-300 100 ML BOTTLE ONE (11:45)
[2019-01-21] MEDS ORDERED: CEFAZOLIN 1000MG PREMIX 50 ML IV SCH (12:00)
[2019-01-21 14:00] VITALS: BP 130/52
[2019-01-21] MEDS ORDERED: SODIUM CHLORIDE 0.9% 10ML VIAL ONE (15:34)
[2019-01-21 16:51] VITALS: BP 156/67
[2019-01-21 20:00] VITALS: BP 124/64
[2019-01-22] VITALS (7 sets, daily range): BP systolic 122–152; BP diastolic 52–69
[2019-01-22] MEDS: METOCLOPRAMIDE HCL 10MG/2ML VIAL IV SCH ×4 (02:45→17:38)
[2019-01-22] MEDS: RISPERIDONE 0.5MG TABLET PO SCH ×3 (02:47→11:00)
[2019-01-22] MEDS: MULTIVITAMINS,THER W-MINERALS TABLET PO SCH (08:02)
[2019-01-22] MEDS: ZINC SULFATE 220 MG ( 50 ) CAPSULE PO SCH (08:02)
[2019-01-22] MEDS: MEGESTROL ACETATE 400 MG/10 ML UDC PO SCH ×2 (08:02→08:03)
[2019-01-22] MEDS: ASCORBIC ACID 500 MG TABLET PO SCH (08:02)
[2019-01-22] MEDS: CETIRIZINE 10MG TABLET PO SCH ×2 (08:03→09:00)
[2019-01-22] MEDS: PANTOPRAZOLE SODIUM 40 MG/VIAL IV SCH ×2 (08:53→17:38)
[2019-01-22] MEDS: SODIUM CHLORIDE 0.45% 1,000 ML IV SCH (10:00)
[2019-01-22] MEDS ORDERED: LIDOCAINE HCL 1% 20ML VIAL (Pyxis) INJ ONE (10:07)
[2019-01-22] MEDS ORDERED: LORAZEPAM 2MG/ML CPJ IV PRN (11:30)
[2019-01-22] MEDS: RISPERIDONE 0.25MG TABLET PO PRN (19:11)
[2019-01-22 20:03] LABS: BASOPHILS % 0.5 % (0.0-2.0); HEMATOCRIT. 29.6 % (36.0-48.0); HEMOGLOBIN. 9.6 g/dL (12.0-16.0); LYMPHOCYTES % 14.6 % (20.0-50.0); MEAN CORPUSCULAR HEMOGLOBIN 29.7 pg (28.0-32.0); MEAN CORPUSCULAR VOLUME 91.8 fL (81.0-99.0); MONOCYTES % 5.1 % (2.0-8.0); NEUTROPHILS % 79.8 % (40.0-76.0); PLATELET 248 x1000/uL (130-400); RED BLOOD CELL COUNT 3.22 mill/uL (4.2-5.4); RED CELL DISTRIBUTION WIDTH 19.1 % (11.6-14.6)
[2019-01-22 20:22] LABS: CHLORIDE 118 mEq/L (98-107)
[2019-01-22] MEDS: FOLIC ACID 1 MG, THIAMINE HCL 100 MG, MVI, ADULT NO.1 10 ML in DEXTROSE 5% WATER 1,000 ML IV SCH ×4 (20:48)
[2019-01-22] MEDS ORDERED: KCL 10 MEQ/50 ML IV ONE ×4 (23:45)
[2019-01-23] MEDS ORDERED: KCL 10 MEQ/50 ML IV ONE
[2019-01-23] MEDS: METOCLOPRAMIDE HCL 10MG/2ML VIAL IV SCH ×4 (00:35→18:00)
[2019-01-23] MEDS ORDERED: POTASSIUM CHLORIDE INJ 50 MEQ in DEXT 5% WATER 500 ML IV SCH (01:00)
[2019-01-23] MEDS ORDERED: POTASSIUM CHLORIDE IV SCH (01:00)
[2019-01-23] MEDS ORDERED: WATER IV SCH (01:00)
[2019-01-23] MEDS ORDERED: DEXT 5% IV SCH (01:00)
[2019-01-23] MEDS: KCL 20MEQ/100ML PREMIX 100 ML IV SCH ×2 (01:36→03:27)
[2019-01-23] MEDS: RISPERIDONE 0.5MG TABLET PO SCH ×3 (03:25→15:47)
[2019-01-23] MEDS: SODIUM CHLORIDE 0.45% 1,000 ML IV SCH ×2 (03:26→13:07)
[2019-01-23 08:20] VITALS: BP 119/50
[2019-01-23 08:22] LABS: BASOPHILS % 0.2 % (0.0-2.0); HEMATOCRIT. 29.5 % (36.0-48.0); HEMOGLOBIN. 9.1 g/dL (12.0-16.0); LYMPHOCYTES % 13.5 % (20.0-50.0); MEAN CORPUSCULAR HEMOGLOBIN 28.8 pg (28.0-32.0); MEAN CORPUSCULAR VOLUME 92.9 fL (81.0-99.0); MEAN PLATELET VOLUME 7.5 fl (7.4-10.4); NEUTROPHILS % 81.3 % (40.0-76.0); PLATELET 262 x1000/uL (130-400); RED BLOOD CELL COUNT 3.18 mill/uL (4.2-5.4); RED CELL DISTRIBUTION WIDTH 19.7 % (11.6-14.6)
[2019-01-23 08:48] LABS: PHOSPHORUS 2.7 mg/dL (2.5-4.9)
[2019-01-23] MEDS: PANTOPRAZOLE SODIUM 40 MG/VIAL IV SCH ×2 (09:00→17:00)
[2019-01-23] MEDS: ASCORBIC ACID 500 MG TABLET PO SCH (09:00)
[2019-01-23] MEDS: CETIRIZINE 10MG TABLET PO SCH (09:00)
[2019-01-23] MEDS: ZINC SULFATE 220 MG ( 50 ) CAPSULE PO SCH (09:00)
[2019-01-23] MEDS: MEGESTROL ACETATE 400 MG/10 ML UDC PO SCH ×2 (09:00→15:47)
[2019-01-23 12:59] VITALS: BP 116/53
[2019-01-23] MEDS ORDERED: LORAZEPAM 2MG/ML CPJ IM ONE (13:15)
[2019-01-23] MEDS ORDERED: HALOPERIDOL LACTATE 5MG/ML VIAL IM SCH (14:00)
[2019-01-23] MEDS ORDERED: DIPHENHYDRAMINE 50MG/ML VIAL IM PRN (14:00)
[2019-01-23] MEDS ORDERED: LIDOCAINE HCL 1% 20ML VIAL (Pyxis) INJ ONE (14:04)
[2019-01-23] MEDS ORDERED: SODIUM BICARBONATE 4% (2.4MEQ) 5ML VIAL IV ONE (14:04)
[2019-01-23 17:29] VITALS: BP 112/54
[2019-01-23 20:11] VITALS: BP 110/53
[2019-01-23] MEDS: FOLIC ACID 1 MG, THIAMINE HCL 100 MG, MVI, ADULT NO.1 10 ML in DEXTROSE 5% WATER 1,000 ML IV SCH ×4 (21:00)
[2019-01-24] MEDS: METOCLOPRAMIDE HCL 10MG/2ML VIAL IV SCH ×5 (00:12→23:57)
[2019-01-24 00:21] VITALS: BP 112/58
[2019-01-24] MEDS: RISPERIDONE 0.5MG TABLET PO SCH ×3 (02:44→19:27)
[2019-01-24 04:11] VITALS: BP 151/55
[2019-01-24] MEDS: SODIUM CHLORIDE 0.45% 1,000 ML IV SCH ×2 (04:39→20:33)
[2019-01-24 06:22] LABS: BASOPHILS % 0.2 % (0.0-2.0); EOSINOPHILS % 0.1 % (0.0-5.0); HEMATOCRIT. 29.2 % (36.0-48.0); HEMOGLOBIN. 9.4 g/dL (12.0-16.0); LYMPHOCYTES % 20.2 % (20.0-50.0); MEAN CORPUSCULAR HEMOGLOBIN 29.6 pg (28.0-32.0); MEAN CORPUSCULAR VOLUME 91.8 fL (81.0-99.0); MEAN PLATELET VOLUME 7.7 fl (7.4-10.4); MONOCYTES % 5.3 % (2.0-8.0); NEUTROPHILS % 74.2 % (40.0-76.0); PLATELET 217 x1000/uL (130-400); RED BLOOD CELL COUNT 3.18 mill/uL (4.2-5.4); RED CELL DISTRIBUTION WIDTH 19.4 % (11.6-14.6)
[2019-01-24] MEDS: PANTOPRAZOLE SODIUM 40 MG/VIAL IV SCH ×2 (08:57→19:27)
[2019-01-24] MEDS: ZINC SULFATE 220 MG ( 50 ) CAPSULE PO SCH (08:57)
[2019-01-24] MEDS: MEGESTROL ACETATE 400 MG/10 ML UDC PO SCH ×2 (08:57→19:27)
[2019-01-24] MEDS: CETIRIZINE 10MG TABLET PO SCH (08:58)
[2019-01-24] MEDS: ASCORBIC ACID 500 MG TABLET PO SCH (08:58)
[2019-01-24] MEDS ORDERED: POTASSIUM CHLORIDE INJ 30 MEQ, SODIUM BICARBONATE 50 MEQ in DEXTROSE 5% WATER 1,000 ML IV SCH (10:00)
[2019-01-24 12:06] VITALS: BP 127/57
[2019-01-24 15:47] VITALS: BP 139/57
[2019-01-24 20:37] VITALS: BP 117/56
[2019-01-24] MEDS: [UNRECOGNIZED DRUG - REMARK] IV SCH ×5 (20:51)
[2019-01-25] VITALS (58 sets, daily range): BP systolic 58–168; BP diastolic 21–115
[2019-01-25] MEDS: RISPERIDONE 0.5MG TABLET PO SCH ×3 (02:40→19:00)
[2019-01-25] MEDS: METOCLOPRAMIDE HCL 10MG/2ML VIAL IV SCH ×4 (05:12→23:05)
[2019-01-25] MEDS ORDERED: DEXT 5%/0.45% NACL KCL 30MEQ/L 1,000 ML IV SCH (07:00)
[2019-01-25] MEDS: SODIUM CHLORIDE 0.45% 1,000 ML IV SCH (07:07)
[2019-01-25] MEDS: MEGESTROL ACETATE 400 MG/10 ML UDC PO SCH ×2 (09:00→16:41)
[2019-01-25] MEDS ORDERED: LEVOFLOXACIN 500MG PREMIX 100 ML IV SCH (09:00)
[2019-01-25] MEDS: ASCORBIC ACID 500 MG TABLET PO SCH (09:00)
[2019-01-25] MEDS ORDERED: ACETAMINOPHEN 650MG SUPP PR PRN (09:00)
[2019-01-25] MEDS: PANTOPRAZOLE SODIUM 40 MG/VIAL IV SCH ×2 (09:00→19:00)
[2019-01-25] MEDS ORDERED: MORPHINE SULFATE 4 MG/ML CPJ (NOT FOR IM USE) IV PRN (09:00)
[2019-01-25] MEDS ORDERED: ONDANSETRON HCL 4MG/2ML INJ IV PRN (09:00)
[2019-01-25] MEDS ORDERED: FAMOTIDINE 20MG/2ML VIAL IV SCH (09:00)
[2019-01-25] MEDS: CETIRIZINE 10MG TABLET PO SCH (09:00)
[2019-01-25] MEDS: ZINC SULFATE 220 MG ( 50 ) CAPSULE PO SCH (09:00)
[2019-01-25] MEDS ORDERED: METRONIDAZOLE 500 MG PREMIX 100 ML IV SCH (09:00)
[2019-01-25] MEDS ORDERED: BUPIVACAINE HCL 0.5% (5MG/ML) 50ML ONE (09:06)
[2019-01-25] MEDS ORDERED: METRONIDAZOLE 500 MG PREMIX 100 ML IV ONE (09:10)
[2019-01-25] MEDS ORDERED: FENTANYL CITRATE/PF 50MCG/ML 2ML VIAL ONE (09:41)
[2019-01-25] MEDS ORDERED: SUCCINYLCHOLINE CHLORIDE 200MG/10ML IV ONE (09:41)
[2019-01-25] MEDS ORDERED: MIDAZOLAM HCL 2 MG/2 ML VIAL ONE ×4 (09:41→11:19)
[2019-01-25] MEDS ORDERED: ETOMIDATE 2MG/ML 10ML VIAL IV ONE (09:42)
[2019-01-25] MEDS ORDERED: LIDOCAINE HCL 1% 20ML VIAL (Pyxis) INJ ONE (09:54)
[2019-01-25] MEDS ORDERED: ROCURONIUM BROMIDE 10MG/ML VIAL 5ML IV ONE (10:17)
[2019-01-25] MEDS ORDERED: SODIUM CHLORIDE 0.9% 10ML VIAL ONE ×2 (10:23→10:27)
[2019-01-25] MEDS ORDERED: PHENYLEPHRINE HCL 10 MG/ML 1ML (IV VIAL) IV ONE (10:23)
[2019-01-25] MEDS ORDERED: EPHEDRINE SULFATE 50MG/ML VIAL ONE (10:27)
[2019-01-25] MEDS ORDERED: DEXAMETHASONE 4MG/ML 1ML VIAL ONE (10:32)
[2019-01-25] MEDS ORDERED: HYDROMORPHONE HCL/PF 2MG/ML CPJ IV PRN (12:00)
[2019-01-25] MEDS ORDERED: DEXTROSE 5% WATER 1,000 ML IV SCH (13:25)
[2019-01-25] MEDS ORDERED: DEXT 5%/0.45% NACL KCL 20MEQ/L 1,000 ML IV SCH (13:30)
[2019-01-25 13:50] LABS: BG BASE EXCESS -8.9 mmol/L (-2.0-2.0); BG CARBOXYHEMOGLOBIN 0.1 % (0.5-1.5); BG DEOXYHEMOGLOBIN 0.9 % (0.0-5.0); BG FRACTION INSPIRED OXYGEN 50; BG HCO3 ACT 14.8 mmol/L (22.0-26.0); BG METHEMOGLOBIN 0.6 % (0.0-1.5); BG OXYGEN SATURATION 99.1 % (92.0-98.5); BG OXYHEMOGLOBIN 98.4 % (94.0-97.0); BG PH 7.391 (7.350-7.450); BG PO2 175.2 mmHg (75.0-100.0); BG SAMPLE SITE RIGHT RADIAL; BG TIDAL VOLUME(mL) 500 mL; BG TOTAL HEMOGLOBIN 8.6 g/dL (12.0-18.0); BG VENT MODE VENT - A/C; BG VENT RATE 12 set
[2019-01-25 13:55] LABS: CHLORIDE 104 mEq/L (98-107)
[2019-01-25 14:01] LABS: PHOSPHORUS 1.1 mg/dL (2.5-4.9)
[2019-01-25] MEDS ORDERED: SODIUM BICARBONATE 8.4% 1 MEQ/ML 50ML SYR IV NR ×2 (14:30→21:15)
[2019-01-25] MEDS ORDERED: DEXTROSE 50% WATER 50ML SYRINGE IV PRN (14:45)
[2019-01-25] MEDS ORDERED: SODIUM CHLORIDE 0.9% 1,000 ML IV SCH (15:00)
[2019-01-25] MEDS ORDERED: POTASSIUM PHOS,M-BASIC-D-BASIC 20 MMOL in DEXT 5% WATER 243.3333 ML IV ONE (15:00)
[2019-01-25] MEDS: METRONIDAZOLE 500 MG PREMIX 100 ML IV SCH ×2 (15:04→22:13)
[2019-01-25] MEDS: INSULIN LISPRO 100 UNITS/ML SUBCUT SCH ×3 (15:05→23:06)
[2019-01-25] MEDS ORDERED: BUPIVACAINE HCL 0.5% 290 ML in ON-Q PM015 DRUG DELIV DEVICE 1 EA IR STA (15:59)
[2019-01-25] MEDS ORDERED: [UNRECOGNIZED DRUG - OTHER] IV SCH (16:00)
[2019-01-25] MEDS ORDERED: SODIUM PHOS M BASIC D BASIC IV SCH (16:00)
[2019-01-25] MEDS ORDERED: POTASSIUM PHOS M BASIC D BASIC IV SCH (16:00)
[2019-01-25] MEDS ORDERED: MAGNESIUM 2 G PREMIX 50 ML IV SCH (16:30)
[2019-01-25 18:05] LABS: MEAN CORPUSCULAR HEMOGLOBIN 29.6 pg (28.0-32.0); MEAN CORPUSCULAR VOLUME 92.4 fL (81.0-99.0); MEAN PLATELET VOLUME 8.3 fl (7.4-10.4); PLATELET 145 x1000/uL (130-400); RED BLOOD CELL COUNT 3.36 mill/uL (4.2-5.4); RED CELL DISTRIBUTION WIDTH 17.2 % (11.6-14.6)
[2019-01-25 18:22] LABS: BG BASE EXCESS -14.7 mmol/L (-2.0-2.0); BG CARBOXYHEMOGLOBIN 0.3 % (0.5-1.5); BG DEOXYHEMOGLOBIN 1.2 % (0.0-5.0); BG FRACTION INSPIRED OXYGEN 40; BG HCO3 ACT 7.5 mmol/L (22.0-26.0); BG METHEMOGLOBIN 0.2 % (0.0-1.5); BG OXYGEN SATURATION 98.8 % (92.0-98.5); BG OXYHEMOGLOBIN 98.3 % (94.0-97.0); BG PCO2 12.5 mmHg (35.0-45.0); BG PH 7.396 (7.350-7.450); BG PO2 170.1 mmHg (75.0-100.0); BG SAMPLE SITE RIGHT RADIAL; BG TIDAL VOLUME(mL) 500 mL; BG VENT MODE VENT - A/C; BG VENT RATE 14 set
[2019-01-25] MEDS: BLOOD SUGAR DIAGNOSTIC STRIP TEST SCH ×2 (18:38→23:07)
[2019-01-25 19:37] LABS: NUCLEATED RED BLOOD CELLS 2 /100 WBC; PLATELET ESTIMATE NORMAL
[2019-01-25 20:49] LABS: BG BASE EXCESS -13.9 mmol/L (-2.0-2.0); BG CARBOXYHEMOGLOBIN 0.3 % (0.5-1.5); BG DEOXYHEMOGLOBIN 1.1 % (0.0-5.0); BG FRACTION INSPIRED OXYGEN 35; BG HCO3 ACT 8.6 mmol/L (22.0-26.0); BG METHEMOGLOBIN 0.3 % (0.0-1.5); BG OXYGEN SATURATION 98.9 % (92.0-98.5); BG OXYHEMOGLOBIN 98.3 % (94.0-97.0); BG PCO2 14.6 mmHg (35.0-45.0); BG PH 7.389 (7.350-7.450); BG PO2 175.6 mmHg (75.0-100.0); BG SAMPLE SITE LEFT RADIAL; BG TIDAL VOLUME(mL) 500 mL; BG TOTAL HEMOGLOBIN 10.8 g/dL (12.0-18.0); BG VENT MODE VENT - A/C; BG VENT RATE 10 set
[2019-01-25] MEDS ORDERED: PROPOFOL 10MG/ML 100ML 100 ML IV PRN (21:30)
[2019-01-25] MEDS: [UNRECOGNIZED DRUG - REMARK] IV SCH ×5 (21:42)
[2019-01-25] MEDS: NOREPINEPHRINE 8 MG in DEXT 5% WATER 492 ML IV PRN (21:43)
[2019-01-25 23:52] LABS: BG BASE EXCESS -9.3 mmol/L (-2.0-2.0); BG CARBOXYHEMOGLOBIN 0.3 % (0.5-1.5); BG DEOXYHEMOGLOBIN 1.5 % (0.0-5.0); BG FRACTION INSPIRED OXYGEN 35; BG HCO3 ACT 11.5 mmol/L (22.0-26.0); BG METHEMOGLOBIN 0.4 % (0.0-1.5); BG OXYGEN SATURATION 98.5 % (92.0-98.5); BG OXYHEMOGLOBIN 97.8 % (94.0-97.0); BG PCO2 14.5 mmHg (35.0-45.0); BG PH 7.516 (7.350-7.450); BG SAMPLE SITE LEFT RADIAL; BG TIDAL VOLUME(mL) 500 mL; BG TOTAL HEMOGLOBIN 9.9 g/dL (12.0-18.0); BG VENT MODE VENT - A/C; BG VENT RATE 10 set
[2019-01-26] VITALS (92 sets, daily range): BP systolic 61–184; BP diastolic 14–119
[2019-01-26] MEDS: PHENYLEPHRINE 20 MG in DEXT 5% WATER 498 ML IV PRN ×3 (00:31→09:16)
[2019-01-26] MEDS ORDERED: FUROSEMIDE 40MG/4ML VIAL IVP NR (02:00)
[2019-01-26] MEDS: RISPERIDONE 0.5MG TABLET PO SCH ×3 (03:00→19:00)
[2019-01-26 04:05] LABS: HEMATOCRIT. 27.8 % (36.0-48.0); HEMOGLOBIN. 9.4 g/dL (12.0-16.0); MEAN CORPUSCULAR HEMOGLOBIN 30.5 pg (28.0-32.0); MEAN CORPUSCULAR VOLUME 90.4 fL (81.0-99.0); PLATELET 146 x1000/uL (130-400); RED BLOOD CELL COUNT 3.08 mill/uL (4.2-5.4); RED CELL DISTRIBUTION WIDTH 17.2 % (11.6-14.6)
[2019-01-26 04:09] LABS: CHLORIDE 100 mEq/L (98-107)
[2019-01-26 04:16] LABS: PHOSPHORUS 3.8 mg/dL (2.5-4.9)
[2019-01-26 04:19] LABS: CREATINE KINASE 291 IU/L (26-192)
[2019-01-26] MEDS: METRONIDAZOLE 500 MG PREMIX 100 ML IV SCH (05:12)
[2019-01-26] MEDS: METOCLOPRAMIDE HCL 10MG/2ML VIAL IV SCH ×3 (05:12→18:00)
[2019-01-26] MEDS: INSULIN LISPRO 100 UNITS/ML SUBCUT SCH ×3 (05:20→20:07)
[2019-01-26] MEDS: BLOOD SUGAR DIAGNOSTIC STRIP TEST SCH ×3 (06:21→18:00)
[2019-01-26 07:18] LABS: PLATELET ESTIMATE NORMAL
[2019-01-26] MEDS ORDERED: ZOSYN (PIPERACILLIN/TAZOBACTAM) XX SCH (08:15)
[2019-01-26 08:24] LABS: BG BASE EXCESS -13.7 mmol/L (-2.0-2.0); BG CARBOXYHEMOGLOBIN 0.3 % (0.5-1.5); BG DEOXYHEMOGLOBIN 1.1 % (0.0-5.0); BG HCO3 ACT 8.1 mmol/L (22.0-26.0); BG METHEMOGLOBIN 0.3 % (0.0-1.5); BG OXYGEN SATURATION 98.9 % (92.0-98.5); BG OXYHEMOGLOBIN 98.3 % (94.0-97.0); BG PCO2 12.6 mmHg (35.0-45.0); BG PH 7.428 (7.350-7.450); BG PO2 168.2 mmHg (75.0-100.0); BG SAMPLE SITE LEFT RADIAL; BG TIDAL VOLUME(mL) 500 mL; BG TOTAL HEMOGLOBIN 10.4 g/dL (12.0-18.0); BG VENT MODE VENT - A/C; BG VENT RATE 10 set
[2019-01-26] MEDS ORDERED: SODIUM BICARBONATE 50 MEQ in DEXTROSE 5% WATER 1,000 ML IV SCH (08:45)
[2019-01-26] MEDS: CETIRIZINE 10MG TABLET PO SCH (09:00)
[2019-01-26] MEDS: FAMOTIDINE 20MG/2ML VIAL IV SCH (09:00)
[2019-01-26] MEDS: MEGESTROL ACETATE 400 MG/10 ML UDC PO SCH ×2 (09:00→17:00)
[2019-01-26] MEDS ORDERED: SODIUM BICARBONATE 50 MEQ in DEXTROSE 5% WATER 950 ML IV SCH (09:00)
[2019-01-26] MEDS: ASCORBIC ACID 500 MG TABLET PO SCH (09:00)
[2019-01-26] MEDS: ZINC SULFATE 220 MG ( 50 ) CAPSULE PO SCH (09:00)
[2019-01-26] MEDS: PANTOPRAZOLE SODIUM 40 MG/VIAL IV SCH ×2 (09:16→17:00)
[2019-01-26] MEDS ORDERED: DEXT 5%/0.2% NACL 1,000 ML IV SCH (09:45)
[2019-01-26] MEDS ORDERED: SODIUM BICARBONATE 100 MEQ in DEXT 5%/0.2% NACL 1,000 ML IV SCH (10:00)
[2019-01-26] MEDS ORDERED: VANCOMYCIN 1500MG in DEXTROSE 5% WATER 250ML IV SCH (10:00)
[2019-01-26] MEDS ORDERED: LEVOFLOXACIN 250MG PREMIX 50 ML IV SCH (11:00)
[2019-01-26] MEDS ORDERED: PIPERACILLIN/TAZ 2.25G PREMIX 50 ML IV SCH (11:00)
[2019-01-26] MEDS ORDERED: SODIUM CHLORIDE 0.9% 1,000 ML IV ONE (11:00)
[2019-01-26] MEDS ORDERED: LIDOCAINE HCL 1% 20ML VIAL (Pyxis) INJ ONE (11:01)
[2019-01-26] MEDS: SODIUM BICARBONATE 100 MEQ in DEXT 5%/0.2% NACL 1,000 ML IV SCH (12:10)
[2019-01-26] MEDS ORDERED: DEXTROSE 5% WATER 1,000 ML IV SCH (13:00)
[2019-01-26] MEDS ORDERED: LIDOCAINE HCL/PF 1% 2ML VIAL ONE (14:15)
[2019-01-26] MEDS: PIPERACILLIN/TAZ 3.375G PREMIX 50 ML IV SCH (18:00)
[2019-01-26] MEDS ORDERED: WATER IV NR (18:30)
[2019-01-26] MEDS ORDERED: DEXTROSE 5% IV NR (18:30)
[2019-01-26] MEDS ORDERED: CALCIUM GLUCONATE IV NR (18:30)
[2019-01-26] MEDS: PHENYLEPHRINE 40 MG in DEXT 5% WATER 246 ML IV PRN (21:53)
[2019-01-26] MEDS: NOREPINEPHRINE 8 MG in DEXT 5% WATER 492 ML IV PRN (21:54)
[2019-01-26 22:15] LABS: BG BASE EXCESS -1.6 mmol/L (-2.0-2.0); BG CARBOXYHEMOGLOBIN 0.3 % (0.5-1.5); BG DEOXYHEMOGLOBIN 1.8 % (0.0-5.0); BG FRACTION INSPIRED OXYGEN 35; BG HCO3 ACT 19.3 mmol/L (22.0-26.0); BG METHEMOGLOBIN 0.2 % (0.0-1.5); BG OXYGEN SATURATION 98.2 % (92.0-98.5); BG OXYHEMOGLOBIN 97.7 % (94.0-97.0); BG PCO2 21.6 mmHg (35.0-45.0); BG PIP 32 cmH2O; BG PO2 122.3 mmHg (75.0-100.0); BG SAMPLE SITE RIGHT RADIAL; BG TIDAL VOLUME(mL) 500 mL; BG TOTAL HEMOGLOBIN 9.5 g/dL (12.0-18.0); BG VENT MODE VENT - A/C; BG VENT RATE 10 set
[2019-01-26 23:53] LABS: BASOPHILS % 0.2 % (0.0-2.0); HEMATOCRIT. 25.9 % (36.0-48.0); HEMOGLOBIN. 8.8 g/dL (12.0-16.0); LYMPHOCYTES % 9.8 % (20.0-50.0); MEAN CORPUSCULAR HEMOGLOBIN 30.3 pg (28.0-32.0); MEAN CORPUSCULAR VOLUME 89.1 fL (81.0-99.0); MEAN PLATELET VOLUME 8.5 fl (7.4-10.4); MONOCYTES % 3.7 % (2.0-8.0); NEUTROPHILS % 86.3 % (40.0-76.0); PLATELET 99 x1000/uL (130-400); RED BLOOD CELL COUNT 2.91 mill/uL (4.2-5.4); RED CELL DISTRIBUTION WIDTH 17.1 % (11.6-14.6)
[2019-01-27] VITALS (69 sets, daily range): BP systolic 90–166; BP diastolic 23–101
[2019-01-27 00:04] LABS: CHLORIDE 104 mEq/L (98-107)
[2019-01-27 00:10] LABS: PHOSPHORUS 2.2 mg/dL (2.5-4.9)
[2019-01-27] MEDS: METOCLOPRAMIDE HCL 10MG/2ML VIAL IV SCH ×4 (00:14→18:12)
[2019-01-27] MEDS: PIPERACILLIN/TAZ 3.375G PREMIX 50 ML IV SCH ×4 (00:18→18:12)
[2019-01-27] MEDS: BLOOD SUGAR DIAGNOSTIC STRIP TEST SCH ×4 (00:39→18:25)
[2019-01-27] MEDS: ALBUMIN HUMAN 25GM/100ML (25%) IV SCH ×2 (01:09→20:44)
[2019-01-27] MEDS: SODIUM BICARBONATE 100 MEQ in DEXT 5%/0.2% NACL 1,000 ML IV SCH (01:30)
[2019-01-27] MEDS ORDERED: MAGNESIUM 2 G PREMIX 50 ML IV NR (02:00)
[2019-01-27] MEDS: RISPERIDONE 0.5MG TABLET PO SCH ×3 (02:54→20:41)
[2019-01-27] MEDS: PHENYLEPHRINE 40 MG in DEXT 5% WATER 246 ML IV PRN ×2 (03:44→05:37)
[2019-01-27] MEDS ORDERED: POTASSIUM PHOS,M-BASIC-D-BASIC 20 MMOL in DEXT 5% WATER 243.3333 ML IV NR (04:00)
[2019-01-27] MEDS ORDERED: SODIUM CHLORIDE 0.9% 1,000 ML IV SCH (05:30)
[2019-01-27] MEDS: INSULIN LISPRO 100 UNITS/ML SUBCUT SCH ×4 (06:00→18:00)
[2019-01-27] MEDS ORDERED: VANCOMYCIN 1250MG in DEXTROSE 5% WATER 250ML IV SCH (09:00)
[2019-01-27] MEDS: CETIRIZINE 10MG TABLET PO SCH (09:00)
[2019-01-27] MEDS: PANTOPRAZOLE SODIUM 40 MG/VIAL IV SCH ×2 (09:00→17:00)
[2019-01-27 09:34] LABS: BG BASE EXCESS -2.3 mmol/L (-2.0-2.0); BG CARBOXYHEMOGLOBIN 0.3 % (0.5-1.5); BG DEOXYHEMOGLOBIN 1.3 % (0.0-5.0); BG FRACTION INSPIRED OXYGEN 35; BG HCO3 ACT 18.6 mmol/L (22.0-26.0); BG METHEMOGLOBIN 0.6 % (0.0-1.5); BG OXYGEN SATURATION 98.7 % (92.0-98.5); BG OXYHEMOGLOBIN 97.8 % (94.0-97.0); BG PH 7.586 (7.350-7.450); BG PO2 152.6 mmHg (75.0-100.0); BG SAMPLE SITE LEFT RADIAL; BG TIDAL VOLUME(mL) 500 mL; BG TOTAL HEMOGLOBIN 8.2 g/dL (12.0-18.0); BG VENT MODE VENT - A/C; BG VENT RATE 10 set
[2019-01-27] MEDS: MEGESTROL ACETATE 400 MG/10 ML UDC PO SCH ×2 (09:42→18:11)
[2019-01-27] MEDS: FAMOTIDINE 20MG/2ML VIAL IV SCH (09:43)
[2019-01-27] MEDS: ASCORBIC ACID 500 MG TABLET PO SCH (09:43)
[2019-01-27] MEDS: ZINC SULFATE 220 MG ( 50 ) CAPSULE PO SCH (09:43)
[2019-01-27 10:37] LABS: BASOPHILS % 0.1 % (0.0-2.0); HEMATOCRIT. 22.6 % (36.0-48.0); HEMOGLOBIN. 7.6 g/dL (12.0-16.0); LYMPHOCYTES % 9.3 % (20.0-50.0); MEAN CORPUSCULAR HEMOGLOBIN 29.8 pg (28.0-32.0); MEAN CORPUSCULAR VOLUME 89.1 fL (81.0-99.0); MEAN PLATELET VOLUME 9.5 fl (7.4-10.4); MONOCYTES % 2.4 % (2.0-8.0); NEUTROPHILS % 88.2 % (40.0-76.0); PLATELET 109 x1000/uL (130-400); RED BLOOD CELL COUNT 2.54 mill/uL (4.2-5.4); RED CELL DISTRIBUTION WIDTH 17.6 % (11.6-14.6)
[2019-01-27 10:51] LABS: CHLORIDE 103 mEq/L (98-107)
[2019-01-27 10:58] LABS: PHOSPHORUS 4.3 mg/dL (2.5-4.9)
[2019-01-27] MEDS: [UNRECOGNIZED DRUG - REMARK] IV SCH ×3 (14:08)
[2019-01-27] MEDS: RISPERIDONE 0.25MG TABLET PO PRN (18:11)
[2019-01-28] VITALS (97 sets, daily range): BP systolic 69–173; BP diastolic 24–92
[2019-01-28] MEDS: PIPERACILLIN/TAZ 3.375G PREMIX 50 ML IV SCH ×5 (00:12→23:24)
[2019-01-28] MEDS: BLOOD SUGAR DIAGNOSTIC STRIP TEST SCH ×5 (00:13→23:24)
[2019-01-28 01:39] LABS: CLARITY URINE CLEAR (CLEAR); COLOR URINE YELLOW (YELLOW); KETONES URINE NEGATIVE (NEGATIVE); LEUKOCYTE ESTERASE URINE NEGATIVE (NEGATIVE); NITRITE URINE NEGATIVE (NEGATIVE); OCCULT BLOOD URINE 2+ (NEGATIVE); PH URINE 8.5 (4.5-8.0); PROTEIN URINE NEGATIVE (NEGATIVE); SPECIFIC GRAVITY URINE 1.006 (1.005-1.030); UROBILINOGEN URINE 0.2 E.U./dL (0.2-1.0)
[2019-01-28 01:47] LABS: HEMATOCRIT 28.7 % (36.0-48.0); HEMOGLOBIN 9.7 g/dL (12.0-16.0)
[2019-01-28] MEDS: RISPERIDONE 0.5MG TABLET PO SCH ×3 (02:15→19:51)
[2019-01-28] MEDS: ALBUMIN HUMAN 25GM/100ML (25%) IV SCH ×2 (05:28→18:31)
[2019-01-28] MEDS: INSULIN LISPRO 100 UNITS/ML SUBCUT SCH ×5 (05:28→23:24)
[2019-01-28 06:10] LABS: HEMATOCRIT. 22.5 % (36.0-48.0); HEMOGLOBIN. 7.8 g/dL (12.0-16.0); MEAN CORPUSCULAR HEMOGLOBIN 30.7 pg (28.0-32.0); MEAN CORPUSCULAR VOLUME 88.3 fL (81.0-99.0); PLATELET 80 x1000/uL (130-400); RED BLOOD CELL COUNT 2.55 mill/uL (4.2-5.4); RED CELL DISTRIBUTION WIDTH 16.7 % (11.6-14.6)
[2019-01-28 06:19] LABS: PHOSPHORUS 2.7 mg/dL (2.5-4.9)
[2019-01-28 08:50] LABS: BG BASE EXCESS 1.5 mmol/L (-2.0-2.0); BG CARBOXYHEMOGLOBIN 0.6 % (0.5-1.5); BG DEOXYHEMOGLOBIN 1.3 % (0.0-5.0); BG FRACTION INSPIRED OXYGEN 35; BG METHEMOGLOBIN 0.1 % (0.0-1.5); BG OXYGEN SATURATION 98.7 % (92.0-98.5); BG PH 7.536 (7.350-7.450); BG PO2 155.1 mmHg (75.0-100.0); BG SAMPLE SITE LEFT RADIAL; BG TIDAL VOLUME(mL) 500 mL; BG TOTAL HEMOGLOBIN 7.1 g/dL (12.0-18.0); BG VENT MODE VENT - A/C; BG VENT RATE 10 set
[2019-01-28] MEDS: [UNRECOGNIZED DRUG - REMARK] IV SCH ×3 (09:00)
[2019-01-28] MEDS: PANTOPRAZOLE SODIUM 40 MG/VIAL IV SCH ×2 (09:16→18:23)
[2019-01-28 09:55] LABS: PLATELET ESTIMATE DECREASED
[2019-01-28] MEDS: RISPERIDONE 0.25MG TABLET PO PRN ×2 (11:45→11:47)
[2019-01-28] MEDS ORDERED: KCL 20MEQ/100ML PREMIX 100 ML IV NR (12:30)
[2019-01-28] MEDS ORDERED: KCL 20MEQ/100ML PREMIX 100 ML IV SCH (14:30)
[2019-01-28] MEDS: DEXT 5%/0.45% NACL KCL 30MEQ/L 1,000 ML IV SCH ×2 (14:47→15:00)
[2019-01-28] MEDS: VANCOMYCIN 1 G PREMIX 200 ML IV SCH (20:59)
[2019-01-29] VITALS (89 sets, daily range): BP systolic 84–155; BP diastolic 34–96
[2019-01-29] MEDS: RISPERIDONE 0.5MG TABLET PO SCH ×3 (02:20→21:05)
[2019-01-29] MEDS: PIPERACILLIN/TAZ 3.375G PREMIX 50 ML IV SCH (05:13)
[2019-01-29] MEDS: INSULIN LISPRO 100 UNITS/ML SUBCUT SCH ×3 (05:13→18:49)
[2019-01-29] MEDS: ALBUMIN HUMAN 25GM/100ML (25%) IV SCH ×2 (05:13→18:48)
[2019-01-29] MEDS: BLOOD SUGAR DIAGNOSTIC STRIP TEST SCH ×3 (05:13→18:42)
[2019-01-29 05:48] LABS: BASOPHILS % 0.1 % (0.0-2.0); EOSINOPHILS % 0.2 % (0.0-5.0); HEMATOCRIT. 28.8 % (36.0-48.0); LYMPHOCYTES % 9.5 % (20.0-50.0); MEAN CORPUSCULAR HEMOGLOBIN 30.9 pg (28.0-32.0); MEAN PLATELET VOLUME 8.6 fl (7.4-10.4); MONOCYTES % 1.8 % (2.0-8.0); NEUTROPHILS % 88.4 % (40.0-76.0); PLATELET 60 x1000/uL (130-400); RED BLOOD CELL COUNT 3.23 mill/uL (4.2-5.4); RED CELL DISTRIBUTION WIDTH 15.9 % (11.6-14.6)
[2019-01-29 06:15] LABS: PHOSPHORUS 1.5 mg/dL (2.5-4.9)
[2019-01-29 06:26] LABS: VITAMIN B12 SERUM 1422 pg/mL (211-911)
[2019-01-29 09:00] LABS: HAPTOGLOBIN 89 mg/dL (30-200)
[2019-01-29 09:39] LABS: BG BASE EXCESS -1.2 mmol/L (-2.0-2.0); BG CARBOXYHEMOGLOBIN 0.3 % (0.5-1.5); BG DEOXYHEMOGLOBIN 3.3 % (0.0-5.0); BG FRACTION INSPIRED OXYGEN 35; BG HCO3 ACT 21.1 mmol/L (22.0-26.0); BG METHEMOGLOBIN 0.1 % (0.0-1.5); BG OXYGEN SATURATION 96.7 % (92.0-98.5); BG OXYHEMOGLOBIN 96.3 % (94.0-97.0); BG PCO2 27.4 mmHg (35.0-45.0); BG PH 7.505 (7.350-7.450); BG PO2 86.9 mmHg (75.0-100.0); BG SAMPLE SITE LEFT RADIAL; BG TIDAL VOLUME(mL) 500 mL; BG VENT MODE VENT - A/C; BG VENT RATE 10 set
[2019-01-29] MEDS ORDERED: MAGNESIUM 4 G PREMIX 100 ML IV SCH (10:00)
[2019-01-29] MEDS ORDERED: SODIUM PHOS,M-BASIC-D-BASIC 30 MM in DEXT 5% WATER 500 ML IV SCH (10:00)
[2019-01-29] MEDS: DEXT 5%/0.45% NACL KCL 30MEQ/L 1,000 ML IV SCH (11:48)
[2019-01-29] MEDS: [UNRECOGNIZED DRUG - REMARK] IV SCH ×3 (14:00)
[2019-01-30] VITALS (72 sets, daily range): BP systolic 71–194; BP diastolic 16–98
[2019-01-30] MEDS: PHENYLEPHRINE 40 MG in DEXT 5% WATER 246 ML IV PRN (02:06)
[2019-01-30] MEDS: RISPERIDONE 0.5MG TABLET PO SCH ×3 (02:19→18:19)
[2019-01-30] MEDS: VANCOMYCIN 1 G PREMIX 200 ML IV SCH (03:07)
[2019-01-30 05:33] LABS: HEMATOCRIT. 29.9 % (36.0-48.0); HEMOGLOBIN. 10.2 g/dL (12.0-16.0); MEAN CORPUSCULAR HEMOGLOBIN 30.8 pg (28.0-32.0); MEAN PLATELET VOLUME 8.8 fl (7.4-10.4); PLATELET 78 x1000/uL (130-400); RED BLOOD CELL COUNT 3.32 mill/uL (4.2-5.4); RED CELL DISTRIBUTION WIDTH 16.4 % (11.6-14.6)
[2019-01-30 06:17] LABS: CHLORIDE 111 mEq/L (98-107)
[2019-01-30] MEDS: DEXT 5%/0.45% NACL KCL 30MEQ/L 1,000 ML IV SCH ×2 (06:23→22:57)
[2019-01-30] MEDS: ALBUMIN HUMAN 25GM/100ML (25%) IV SCH (06:23)
[2019-01-30 06:24] LABS: PHOSPHORUS 2.1 mg/dL (2.5-4.9)
[2019-01-30] MEDS: INSULIN LISPRO 100 UNITS/ML SUBCUT SCH ×4 (06:30→17:46)
[2019-01-30] MEDS: BLOOD SUGAR DIAGNOSTIC STRIP TEST SCH ×4 (06:30→17:46)
[2019-01-30 09:14] LABS: PLATELET ESTIMATE DECREASED
[2019-01-30] MEDS ORDERED: KCL 20MEQ/100ML PREMIX 100 ML IV NR (12:00)
[2019-01-30] MEDS: HYDROMORPHONE HCL/PF 2MG/ML CPJ IV PRN (13:56)
[2019-01-30] MEDS ORDERED: SODIUM PHOS,M-BASIC-D-BASIC 15 MM in DEXT 5% WATER 245 ML IV SCH (15:00)
[2019-01-30] MEDS: FLUCONAZOLE 100MG/50ML in BAG IV SCH (16:39)
[2019-01-30] MEDS ORDERED: FLUCONAZOLE 100 MG/50ML BAG 50 ML IV SCH (17:00)
[2019-01-31] VITALS (44 sets, daily range): BP systolic 96–151; BP diastolic 40–82
[2019-01-31] MEDS: BLOOD SUGAR DIAGNOSTIC STRIP TEST SCH ×4 (00:24→18:16)
[2019-01-31] MEDS: RISPERIDONE 0.25MG TABLET PO PRN (03:16)
[2019-01-31] MEDS: RISPERIDONE 0.5MG TABLET PO SCH ×3 (03:52→17:51)
[2019-01-31 05:59] LABS: CHLORIDE 113 mEq/L (98-107)
[2019-01-31] MEDS: INSULIN LISPRO 100 UNITS/ML SUBCUT SCH ×4 (06:00→18:00)
[2019-01-31 06:01] LABS: HEMATOCRIT. 28.3 % (36.0-48.0); HEMOGLOBIN. 9.6 g/dL (12.0-16.0); MEAN CORPUSCULAR HEMOGLOBIN 30.6 pg (28.0-32.0); MEAN CORPUSCULAR VOLUME 90.3 fL (81.0-99.0); MEAN PLATELET VOLUME 9.2 fl (7.4-10.4); PLATELET 112 x1000/uL (130-400); RED BLOOD CELL COUNT 3.13 mill/uL (4.2-5.4); RED CELL DISTRIBUTION WIDTH 16.6 % (11.6-14.6)
[2019-01-31 06:07] LABS: PHOSPHORUS 1.6 mg/dL (2.5-4.9)
[2019-01-31] MEDS: VANCOMYCIN 1,000 MG in DEXT 5% WATER 250 ML IV SCH (08:57)
[2019-01-31] MEDS: [UNRECOGNIZED DRUG - REMARK] IV SCH ×3 (08:57)
[2019-01-31] MEDS ORDERED: DEXT 5%/0.45% NACL 1000ML 1,000 ML IV SCH (10:30)
[2019-01-31 10:44] LABS: BG BASE EXCESS -2.5 mmol/L (-2.0-2.0); BG CARBOXYHEMOGLOBIN 0.3 % (0.5-1.5); BG DEOXYHEMOGLOBIN 1.5 % (0.0-5.0); BG FRACTION INSPIRED OXYGEN 35; BG HCO3 ACT 20.2 mmol/L (22.0-26.0); BG METHEMOGLOBIN 0.2 % (0.0-1.5); BG OXYGEN SATURATION 98.5 % (92.0-98.5); BG PCO2 27.8 mmHg (35.0-45.0); BG PH 7.479 (7.350-7.450); BG PO2 149.6 mmHg (75.0-100.0); BG PRESSURE SUPPORT 12; BG SAMPLE SITE LEFT RADIAL; BG TIDAL VOLUME(mL) 500 mL; BG TOTAL HEMOGLOBIN 9.6 g/dL (12.0-18.0); BG VENT MODE VENT - SIMV; BG VENT RATE 8 set
[2019-01-31 11:22] LABS: NUCLEATED RED BLOOD CELLS 1 /100 WBC; PLATELET ESTIMATE DECREASED
[2019-01-31] MEDS: IPRATROPIUM/ALBUTEROL 0.5-3(2.5)MG/3ML NEB HHN SCH ×3 (11:50→20:33)
[2019-01-31 11:59] LABS: INR 1.2; PARTIAL THROMBOPLASTIN TIME 39.4 sec (23.4-31.0)
[2019-01-31] MEDS: HYDROMORPHONE HCL/PF 2MG/ML CPJ IV PRN ×2 (12:00→20:25)
[2019-01-31] MEDS: MVI, ADULT NO.1 10 ML in DEXT 5%/0.45% NACL 1000ML 1,000 ML IV SCH ×2 (12:14)
[2019-01-31] MEDS ORDERED: SODIUM PHOS,M-BASIC-D-BASIC 30 MM in DEXT 5% WATER 500 ML IV NR (13:00)
[2019-01-31] MEDS: FLUCONAZOLE 100MG/50ML in BAG IV SCH (17:50)
[2019-01-31] MEDS: DEXT 5%/0.45% NACL 1000ML 1,000 ML IV SCH (23:46)
[2019-02-01] VITALS (46 sets, daily range): BP systolic 81–159; BP diastolic 36–97
[2019-02-01] MEDS: IPRATROPIUM/ALBUTEROL 0.5-3(2.5)MG/3ML NEB HHN SCH ×6 (00:57→20:17)
[2019-02-01] MEDS: ACETAMINOPHEN 650MG/20.3ML UDC GT PRN (02:33)
[2019-02-01] MEDS: RISPERIDONE 0.25MG TABLET PO PRN (02:33)
[2019-02-01] MEDS: RISPERIDONE 0.5MG TABLET PO SCH ×3 (03:00→18:25)
[2019-02-01] MEDS: BLOOD SUGAR DIAGNOSTIC STRIP TEST SCH ×5 (06:00→23:57)
[2019-02-01] MEDS: INSULIN LISPRO 100 UNITS/ML SUBCUT SCH ×4 (06:00→18:00)
[2019-02-01 06:53] LABS: HEMATOCRIT. 28.2 % (36.0-48.0); HEMOGLOBIN. 9.6 g/dL (12.0-16.0); MEAN CORPUSCULAR HEMOGLOBIN 31.5 pg (28.0-32.0); MEAN CORPUSCULAR VOLUME 92.7 fL (81.0-99.0); MEAN PLATELET VOLUME 8.6 fl (7.4-10.4); PLATELET 153 x1000/uL (130-400); RED BLOOD CELL COUNT 3.04 mill/uL (4.2-5.4); RED CELL DISTRIBUTION WIDTH 16.7 % (11.6-14.6)
[2019-02-01 07:30] LABS: CHLORIDE 111 mEq/L (98-107)
[2019-02-01 07:45] LABS: PHOSPHORUS 2.5 mg/dL (2.5-4.9)
[2019-02-01 09:25] LABS: PLATELET ESTIMATE NORMAL
[2019-02-01] MEDS: MVI, ADULT NO.1 10 ML in DEXT 5%/0.45% NACL 1000ML 1,000 ML IV SCH ×2 (10:18)
[2019-02-01] MEDS: HYDROMORPHONE HCL/PF 2MG/ML CPJ IV PRN ×3 (10:18→23:57)
[2019-02-01] MEDS: VANCOMYCIN 1,000 MG in DEXT 5% WATER 250 ML IV SCH (14:34)
[2019-02-01] MEDS: FLUCONAZOLE 100MG/50ML in BAG IV SCH (17:46)
[2019-02-02] VITALS (48 sets, daily range): BP systolic 90–150; BP diastolic 30–77
[2019-02-02] MEDS: IPRATROPIUM/ALBUTEROL 0.5-3(2.5)MG/3ML NEB HHN SCH ×7 (00:13→23:59)
[2019-02-02] MEDS: DEXT 5%/0.45% NACL 1000ML 1,000 ML IV SCH (03:27)
[2019-02-02] MEDS: RISPERIDONE 0.5MG TABLET PO SCH ×3 (03:32→17:57)
[2019-02-02] MEDS: BLOOD SUGAR DIAGNOSTIC STRIP TEST SCH ×3 (06:00→18:04)
[2019-02-02] MEDS: INSULIN LISPRO 100 UNITS/ML SUBCUT SCH ×4 (06:00→18:00)
[2019-02-02 09:51] LABS: BG BASE EXCESS -5.6 mmol/L (-2.0-2.0); BG CARBOXYHEMOGLOBIN 0.3 % (0.5-1.5); BG DEOXYHEMOGLOBIN 4.3 % (0.0-5.0); BG FRACTION INSPIRED OXYGEN 35; BG HCO3 ACT 15.6 mmol/L (22.0-26.0); BG METHEMOGLOBIN 0.4 % (0.0-1.5); BG OXYGEN SATURATION 95.7 % (92.0-98.5); BG PCO2 18.7 mmHg (35.0-45.0); BG PH 7.539 (7.350-7.450); BG PO2 71.4 mmHg (75.0-100.0); BG SAMPLE SITE LEFT RADIAL; BG TIDAL VOLUME(mL) 500 mL; BG TOTAL HEMOGLOBIN 8.8 g/dL (12.0-18.0); BG VENT MODE VENT - A/C; BG VENT RATE 10 set
[2019-02-02 09:55] LABS: HEMATOCRIT. 27.9 % (36.0-48.0); HEMOGLOBIN. 9.3 g/dL (12.0-16.0); MEAN CORPUSCULAR HEMOGLOBIN 30.5 pg (28.0-32.0); MEAN CORPUSCULAR VOLUME 90.9 fL (81.0-99.0); MEAN PLATELET VOLUME 8.4 fl (7.4-10.4); PLATELET 229 x1000/uL (130-400); RED BLOOD CELL COUNT 3.07 mill/uL (4.2-5.4); RED CELL DISTRIBUTION WIDTH 16.6 % (11.6-14.6)
[2019-02-02 10:04] LABS: CHLORIDE 112 mEq/L (98-107)
[2019-02-02 10:23] LABS: PLATELET ESTIMATE NORMAL
[2019-02-02] MEDS: HYDROMORPHONE HCL/PF 2MG/ML CPJ IV PRN ×2 (10:39→22:47)
[2019-02-02] MEDS: MVI, ADULT NO.1 10 ML in DEXT 5%/0.45% NACL 1000ML 1,000 ML IV SCH ×2 (13:36)
[2019-02-02] MEDS: FLUCONAZOLE 100MG/50ML in BAG IV SCH (18:26)
[2019-02-02] MEDS: VANCOMYCIN 1,000 MG in DEXT 5% WATER 250 ML IV SCH (20:13)
[2019-02-02] MEDS: RISPERIDONE 0.25MG TABLET PO PRN (23:38)
[2019-02-03] VITALS (46 sets, daily range): BP systolic 97–153; BP diastolic 21–110
[2019-02-03] MEDS: RISPERIDONE 0.5MG TABLET PO SCH ×3 (02:27→20:06)
[2019-02-03] MEDS: IPRATROPIUM/ALBUTEROL 0.5-3(2.5)MG/3ML NEB HHN SCH ×5 (03:56→21:13)
[2019-02-03 04:41] LABS: BASOPHILS % 0.3 % (0.0-2.0); EOSINOPHILS % 0.1 % (0.0-5.0); HEMOGLOBIN. 8.5 g/dL (12.0-16.0); LYMPHOCYTES % 9.3 % (20.0-50.0); MEAN CORPUSCULAR HEMOGLOBIN 30.4 pg (28.0-32.0); MEAN CORPUSCULAR VOLUME 89.4 fL (81.0-99.0); MEAN PLATELET VOLUME 7.9 fl (7.4-10.4); MONOCYTES % 3.2 % (2.0-8.0); NEUTROPHILS % 87.1 % (40.0-76.0); PLATELET 235 x1000/uL (130-400); RED BLOOD CELL COUNT 2.79 mill/uL (4.2-5.4); RED CELL DISTRIBUTION WIDTH 16.3 % (11.6-14.6)
[2019-02-03 05:03] LABS: CHLORIDE 112 mEq/L (98-107)
[2019-02-03] MEDS: INSULIN LISPRO 100 UNITS/ML SUBCUT SCH ×4 (06:00→17:41)
[2019-02-03] MEDS: BLOOD SUGAR DIAGNOSTIC STRIP TEST SCH ×4 (06:00→17:42)
[2019-02-03 06:19] LABS: PHOSPHORUS 0.7 mg/dL (2.5-4.9)
[2019-02-03 07:34] LABS: BG BASE EXCESS -3.2 mmol/L (-2.0-2.0); BG CARBOXYHEMOGLOBIN 0.3 % (0.5-1.5); BG HCO3 ACT 17.1 mmol/L (22.0-26.0); BG METHEMOGLOBIN 0.2 % (0.0-1.5); BG OXYHEMOGLOBIN 98.5 % (94.0-97.0); BG PH 7.571 (7.350-7.450); BG PO2 188.3 mmHg (75.0-100.0); BG SAMPLE SITE RIGHT RADIAL; BG TIDAL VOLUME(mL) 500 mL; BG TOTAL HEMOGLOBIN 10.8 g/dL (12.0-18.0); BG VENT MODE VENT - A/C; BG VENT RATE 10 set
[2019-02-03] MEDS: SODIUM PHOS,M-BASIC-D-BASIC 30 MM in DEXT 5% WATER 500 ML IV SCH ×2 (08:46→13:59)
[2019-02-03] MEDS: MVI, ADULT NO.1 10 ML in DEXT 5%/0.45% NACL 1000ML 1,000 ML IV SCH ×2 (08:47)
[2019-02-03] MEDS ORDERED: LIDOCAINE HCL/PF 1% 2ML VIAL ONE (11:42)
[2019-02-03] MEDS ORDERED: MAGNESIUM 4 G PREMIX 100 ML IV NR (12:00)
[2019-02-03 13:42] LABS: BG BASE EXCESS -3.4 mmol/L (-2.0-2.0); BG CARBOXYHEMOGLOBIN 0.1 % (0.5-1.5); BG DEOXYHEMOGLOBIN 1.6 % (0.0-5.0); BG FRACTION INSPIRED OXYGEN 35; BG HCO3 ACT 19.1 mmol/L (22.0-26.0); BG METHEMOGLOBIN 0.4 % (0.0-1.5); BG OXYGEN SATURATION 98.4 % (92.0-98.5); BG OXYHEMOGLOBIN 97.9 % (94.0-97.0); BG PCO2 25.9 mmHg (35.0-45.0); BG PEEP (cmH2O) 0 cmH2O; BG PH 7.486 (7.350-7.450); BG PO2 144.8 mmHg (75.0-100.0); BG SAMPLE SITE RIGHT RADIAL; BG TIDAL VOLUME(mL) 450 mL; BG TOTAL HEMOGLOBIN 9.3 g/dL (12.0-18.0); BG VENT MODE VENT - A/C; BG VENT RATE 8 set
[2019-02-03] MEDS: FLUCONAZOLE 100MG/50ML in BAG IV SCH (16:39)
[2019-02-03] MEDS: ALBUMIN HUMAN 25GM/100ML (25%) IV SCH (16:41)
[2019-02-03] MEDS: HYDROMORPHONE HCL/PF 2MG/ML CPJ IV PRN (21:35)
[2019-02-04] VITALS (36 sets, daily range): BP systolic 107–152; BP diastolic 46–96
[2019-02-04] MEDS: IPRATROPIUM/ALBUTEROL 0.5-3(2.5)MG/3ML NEB HHN SCH ×4 (01:24→11:46)
[2019-02-04] MEDS: DEXT 5%/0.45% NACL 1000ML 1,000 ML IV SCH (02:18)
[2019-02-04] MEDS: RISPERIDONE 0.5MG TABLET PO SCH ×3 (02:52→20:48)
[2019-02-04] MEDS: ALBUMIN HUMAN 25GM/100ML (25%) IV SCH ×2 (05:20→17:17)
[2019-02-04 05:23] LABS: CHLORIDE 114 mEq/L (98-107)
[2019-02-04 05:31] LABS: PHOSPHORUS 2.2 mg/dL (2.5-4.9)
[2019-02-04] MEDS: INSULIN LISPRO 100 UNITS/ML SUBCUT SCH ×4 (06:00→18:00)
[2019-02-04] MEDS: BLOOD SUGAR DIAGNOSTIC STRIP TEST SCH ×4 (06:00→18:33)
[2019-02-04] MEDS: MVI, ADULT NO.1 10 ML in DEXT 5%/0.45% NACL 1000ML 1,000 ML IV SCH ×2 (08:56)
[2019-02-04] MEDS ORDERED: POTASSIUM CHLORIDE INJ 40 MEQ in DEXT 5% WATER 250 ML IV NR (11:00)
[2019-02-04] MEDS ORDERED: LORAZEPAM 2MG/ML CPJ IV PRN (11:45)
[2019-02-04] MEDS ORDERED: POTASSIUM PHOS,M-BASIC-D-BASIC 20 MMOL in DEXT 5% WATER 243.3333 ML IV NR (14:30)
[2019-02-04] MEDS: IPRATROPIUM BROMIDE (0.02%) 0.5MG/2.5ML NEB HHN SCH ×3 (14:52→21:15)
[2019-02-04] MEDS: ACETYLCYSTEINE 100MG/ML 10% VIAL 4ML INH SCH (17:00)
[2019-02-04] MEDS: FLUCONAZOLE 100MG/50ML in BAG IV SCH (17:17)
[2019-02-05] VITALS (44 sets, daily range): BP systolic 95–167; BP diastolic 40–92
[2019-02-05] MEDS: BLOOD SUGAR DIAGNOSTIC STRIP TEST SCH ×5 (00:33→23:59)
[2019-02-05] MEDS: IPRATROPIUM BROMIDE (0.02%) 0.5MG/2.5ML NEB HHN SCH ×6 (01:03→20:39)
[2019-02-05] MEDS: ACETYLCYSTEINE 100MG/ML 10% VIAL 4ML INH SCH ×3 (01:04→15:22)
[2019-02-05] MEDS: RISPERIDONE 0.5MG TABLET PO SCH ×3 (02:24→20:32)
[2019-02-05] MEDS: HALOPERIDOL LACTATE 5MG/ML VIAL IM PRN (02:29)
[2019-02-05 05:39] LABS: HEMATOCRIT. 24.1 % (36.0-48.0); HEMOGLOBIN. 8.1 g/dL (12.0-16.0); MEAN CORPUSCULAR HEMOGLOBIN 30.4 pg (28.0-32.0); MEAN CORPUSCULAR VOLUME 90.4 fL (81.0-99.0); PLATELET 343 x1000/uL (130-400); RED BLOOD CELL COUNT 2.67 mill/uL (4.2-5.4); RED CELL DISTRIBUTION WIDTH 16.7 % (11.6-14.6)
[2019-02-05 05:57] LABS: CHLORIDE 117 mEq/L (98-107)
[2019-02-05] MEDS: INSULIN LISPRO 100 UNITS/ML SUBCUT SCH ×5 (06:00→23:59)
[2019-02-05 06:02] LABS: PHOSPHORUS 1.7 mg/dL (2.5-4.9)
[2019-02-05] MEDS: ALBUMIN HUMAN 25GM/100ML (25%) IV SCH ×2 (06:11→18:23)
[2019-02-05] MEDS: MULTIVITAMINS,THER W-MINERALS TABLET JT SCH (09:06)
[2019-02-05 09:31] LABS: BG BASE EXCESS -4.1 mmol/L (-2.0-2.0); BG CARBOXYHEMOGLOBIN 0.3 % (0.5-1.5); BG DEOXYHEMOGLOBIN 1.3 % (0.0-5.0); BG FRACTION INSPIRED OXYGEN 35; BG HCO3 ACT 17.8 mmol/L (22.0-26.0); BG METHEMOGLOBIN 0.3 % (0.0-1.5); BG OXYGEN SATURATION 98.7 % (92.0-98.5); BG OXYHEMOGLOBIN 98.1 % (94.0-97.0); BG PCO2 22.2 mmHg (35.0-45.0); BG PH 7.521 (7.350-7.450); BG PO2 161.3 mmHg (75.0-100.0); BG SAMPLE SITE LEFT RADIAL; BG TIDAL VOLUME(mL) 450 mL; BG TOTAL HEMOGLOBIN 8.4 g/dL (12.0-18.0); BG VENT MODE VENT - A/C; BG VENT RATE 8 set
[2019-02-05] MEDS ORDERED: POTASSIUM PHOS,M-BASIC-D-BASIC 15 MMOL in DEXT 5% WATER 245 ML IV NR (11:30)
[2019-02-05] MEDS: FENTANYL CITRATE/PF 500 MCG in SODIUM CHLORIDE 0.9% 40 ML IV PRN ×2 (12:49→20:32)
[2019-02-05 14:25] LABS: PLATELET ESTIMATE NORMAL
[2019-02-05] MEDS: FLUCONAZOLE 100MG/50ML in BAG IV SCH (18:24)
[2019-02-05 19:51] LABS: CLARITY URINE CLEAR (CLEAR); COLOR URINE YELLOW (YELLOW); KETONES URINE NEGATIVE (NEGATIVE); LEUKOCYTE ESTERASE URINE 1+ (NEGATIVE); NITRITE URINE NEGATIVE (NEGATIVE); OCCULT BLOOD URINE TRACE (NEGATIVE); PH URINE 6.5 (4.5-8.0); PROTEIN URINE 2+ (NEGATIVE); SPECIFIC GRAVITY URINE 1.019 (1.005-1.030); UROBILINOGEN URINE 0.2 E.U./dL (0.2-1.0)
[2019-02-06] VITALS (62 sets, daily range): BP systolic 82–155; BP diastolic 29–87
[2019-02-06] MEDS: ACETYLCYSTEINE 100MG/ML 10% VIAL 4ML INH SCH ×3 (00:09→15:54)
[2019-02-06] MEDS: IPRATROPIUM BROMIDE (0.02%) 0.5MG/2.5ML NEB HHN SCH ×6 (00:09→20:07)
[2019-02-06] MEDS: HALOPERIDOL LACTATE 5MG/ML VIAL IM PRN ×2 (01:30→11:43)
[2019-02-06] MEDS: RISPERIDONE 0.5MG TABLET PO SCH ×3 (02:52→18:46)
[2019-02-06] MEDS: FENTANYL CITRATE/PF 500 MCG in SODIUM CHLORIDE 0.9% 40 ML IV PRN ×4 (02:52→23:36)
[2019-02-06 05:37] LABS: HEMOGLOBIN 7.1 g/dL (12.0-16.0); MEAN CORPUSCULAR HEMOGLOBIN 29.3 pg (28.0-32.0); MEAN CORPUSCULAR VOLUME 91.1 fL (81.0-99.0); PLATELET 373 x1000/uL (130-400); RED BLOOD CELL COUNT 2.41 mill/uL (4.2-5.4); RED CELL DISTRIBUTION WIDTH 16.6 % (11.6-14.6)
[2019-02-06] MEDS: BLOOD SUGAR DIAGNOSTIC STRIP TEST SCH ×4 (05:43→23:37)
[2019-02-06] MEDS: ALBUMIN HUMAN 25GM/100ML (25%) IV SCH (05:48)
[2019-02-06] MEDS: INSULIN LISPRO 100 UNITS/ML SUBCUT SCH ×4 (06:00→23:37)
[2019-02-06 06:34] LABS: CHLORIDE 118 mEq/L (98-107)
[2019-02-06 06:51] LABS: PHOSPHORUS 1.8 mg/dL (2.5-4.9)
[2019-02-06 08:35] LABS: BG BASE EXCESS -4.6 mmol/L (-2.0-2.0); BG CARBOXYHEMOGLOBIN 0.1 % (0.5-1.5); BG DEOXYHEMOGLOBIN 1.4 % (0.0-5.0); BG FRACTION INSPIRED OXYGEN 35; BG HCO3 ACT 18.9 mmol/L (22.0-26.0); BG METHEMOGLOBIN 0.3 % (0.0-1.5); BG OXYGEN SATURATION 98.6 % (92.0-98.5); BG OXYHEMOGLOBIN 98.2 % (94.0-97.0); BG PCO2 28.4 mmHg (35.0-45.0); BG PO2 149.7 mmHg (75.0-100.0); BG SAMPLE SITE RIGHT RADIAL; BG TIDAL VOLUME(mL) 450 mL; BG TOTAL HEMOGLOBIN 8.1 g/dL (12.0-18.0); BG VENT MODE VENT - A/C; BG VENT RATE 12 set
[2019-02-06] MEDS: MULTIVITAMINS,THER W-MINERALS TABLET JT SCH (09:52)
[2019-02-06] MEDS ORDERED: SODIUM PHOS,M-BASIC-D-BASIC 30 MM in DEXT 5% WATER 500 ML IV SCH (16:00)
[2019-02-06] MEDS: ACETAMINOPHEN 650MG/20.3ML UDC GT PRN (20:50)
[2019-02-07] VITALS (48 sets, daily range): BP systolic 102–183; BP diastolic 34–94
[2019-02-07] MEDS: ACETYLCYSTEINE 100MG/ML 10% VIAL 4ML INH SCH ×4 (00:20→15:56)
[2019-02-07] MEDS: IPRATROPIUM BROMIDE (0.02%) 0.5MG/2.5ML NEB HHN SCH ×6 (00:21→20:21)
[2019-02-07] MEDS: RISPERIDONE 0.5MG TABLET PO SCH ×3 (03:16→20:10)
[2019-02-07 05:05] LABS: BASOPHILS % 0.3 % (0.0-2.0); EOSINOPHILS % 0.2 % (0.0-5.0); HEMATOCRIT. 34.1 % (36.0-48.0); HEMOGLOBIN. 11.4 g/dL (12.0-16.0); LYMPHOCYTES % 11.1 % (20.0-50.0); MEAN CORPUSCULAR HEMOGLOBIN 29.9 pg (28.0-32.0); MEAN CORPUSCULAR VOLUME 89.2 fL (81.0-99.0); MEAN PLATELET VOLUME 8.1 fl (7.4-10.4); MONOCYTES % 3.9 % (2.0-8.0); NEUTROPHILS % 84.5 % (40.0-76.0); PLATELET 426 x1000/uL (130-400); RED BLOOD CELL COUNT 3.82 mill/uL (4.2-5.4); RED CELL DISTRIBUTION WIDTH 15.7 % (11.6-14.6)
[2019-02-07 05:28] LABS: CHLORIDE 114 mEq/L (98-107)
[2019-02-07] MEDS: INSULIN LISPRO 100 UNITS/ML SUBCUT SCH ×3 (06:00→18:00)
[2019-02-07] MEDS: BLOOD SUGAR DIAGNOSTIC STRIP TEST SCH ×3 (06:00→17:00)
[2019-02-07] MEDS: MULTIVITAMINS,THER W-MINERALS TABLET JT SCH (10:08)
[2019-02-07] MEDS: FENTANYL CITRATE/PF 500 MCG in SODIUM CHLORIDE 0.9% 40 ML IV PRN ×2 (13:04→22:34)
[2019-02-08] VITALS (51 sets, daily range): BP systolic 97–162; BP diastolic 28–93
[2019-02-08] MEDS: IPRATROPIUM BROMIDE (0.02%) 0.5MG/2.5ML NEB HHN SCH ×6 (00:20→20:18)
[2019-02-08] MEDS: BLOOD SUGAR DIAGNOSTIC STRIP TEST SCH ×4 (00:32→18:00)
[2019-02-08] MEDS: RISPERIDONE 0.5MG TABLET PO SCH ×3 (03:46→19:44)
[2019-02-08] MEDS: ACETYLCYSTEINE 100MG/ML 10% VIAL 4ML INH SCH ×3 (05:29→17:06)
[2019-02-08] MEDS: INSULIN LISPRO 100 UNITS/ML SUBCUT SCH ×4 (06:00→18:00)
[2019-02-08 06:02] LABS: CHLORIDE 113 mEq/L (98-107)
[2019-02-08 06:06] LABS: PHOSPHORUS 2.3 mg/dL (2.5-4.9)
[2019-02-08 06:11] LABS: BASOPHILS % 0.3 % (0.0-2.0); EOSINOPHILS % 0.3 % (0.0-5.0); HEMATOCRIT. 33.3 % (36.0-48.0); HEMOGLOBIN. 11.2 g/dL (12.0-16.0); LYMPHOCYTES % 11.9 % (20.0-50.0); MEAN CORPUSCULAR HEMOGLOBIN 30.1 pg (28.0-32.0); MONOCYTES % 5.5 % (2.0-8.0); PLATELET 453 x1000/uL (130-400); RED BLOOD CELL COUNT 3.74 mill/uL (4.2-5.4); RED CELL DISTRIBUTION WIDTH 15.7 % (11.6-14.6)
[2019-02-08] MEDS: FENTANYL CITRATE/PF 500 MCG in SODIUM CHLORIDE 0.9% 40 ML IV PRN ×2 (06:14→13:20)
[2019-02-08] MEDS: MULTIVITAMINS,THER W-MINERALS TABLET JT SCH (09:17)
[2019-02-08] MEDS ORDERED: SODIUM PHOS,M-BASIC-D-BASIC 20 MM in DEXT 5% WATER 243.3333 ML IV NR (15:00)
[2019-02-08] MEDS: CEFTRIAXONE 1 G PREMIX 50 ML IV SCH (15:00)
[2019-02-08 15:25] LABS: CLARITY URINE CLOUDY (CLEAR); COLOR URINE YELLOW (YELLOW); KETONES URINE NEGATIVE (NEGATIVE); LEUKOCYTE ESTERASE URINE 2+ (NEGATIVE); NITRITE URINE NEGATIVE (NEGATIVE); OCCULT BLOOD URINE TRACE (NEGATIVE); PROTEIN URINE 1+ (NEGATIVE); SPECIFIC GRAVITY URINE 1.021 (1.005-1.030); UROBILINOGEN URINE 0.2 E.U./dL (0.2-1.0)
[2019-02-09] VITALS (58 sets, daily range): BP systolic 86–160; BP diastolic 34–96
[2019-02-09] MEDS: ACETYLCYSTEINE 100MG/ML 10% VIAL 4ML INH SCH ×3 (00:20→17:10)
[2019-02-09] MEDS: IPRATROPIUM BROMIDE (0.02%) 0.5MG/2.5ML NEB HHN SCH ×6 (00:20→20:32)
[2019-02-09] MEDS: FENTANYL CITRATE/PF 500 MCG in SODIUM CHLORIDE 0.9% 40 ML IV PRN ×3 (00:35→19:14)
[2019-02-09] MEDS: RISPERIDONE 0.5MG TABLET PO SCH ×3 (03:55→19:00)
[2019-02-09 05:59] LABS: BASOPHILS % 0.4 % (0.0-2.0); EOSINOPHILS % 0.2 % (0.0-5.0); HEMATOCRIT. 34.6 % (36.0-48.0); HEMOGLOBIN. 11.6 g/dL (12.0-16.0); LYMPHOCYTES % 17.1 % (20.0-50.0); MEAN CORPUSCULAR HEMOGLOBIN 30.3 pg (28.0-32.0); MEAN CORPUSCULAR VOLUME 90.4 fL (81.0-99.0); MEAN PLATELET VOLUME 7.9 fl (7.4-10.4); MONOCYTES % 6.3 % (2.0-8.0); PLATELET 455 x1000/uL (130-400); RED BLOOD CELL COUNT 3.83 mill/uL (4.2-5.4); RED CELL DISTRIBUTION WIDTH 16.2 % (11.6-14.6)
[2019-02-09] MEDS: INSULIN LISPRO 100 UNITS/ML SUBCUT SCH ×4 (06:00→18:00)
[2019-02-09] MEDS: BLOOD SUGAR DIAGNOSTIC STRIP TEST SCH ×4 (06:00→18:30)
[2019-02-09 06:15] LABS: CHLORIDE 111 mEq/L (98-107)
[2019-02-09 06:32] LABS: PHOSPHORUS 3.1 mg/dL (2.5-4.9)
[2019-02-09] MEDS: MULTIVITAMINS,THER W-MINERALS TABLET JT SCH (09:00)
[2019-02-09] MEDS: CEFTRIAXONE 1 G PREMIX 50 ML IV SCH (14:30)
[2019-02-10] VITALS (87 sets, daily range): BP systolic 88–156; BP diastolic 40–106
[2019-02-10] MEDS: IPRATROPIUM BROMIDE (0.02%) 0.5MG/2.5ML NEB HHN SCH ×6 (00:21→20:20)
[2019-02-10] MEDS: BLOOD SUGAR DIAGNOSTIC STRIP TEST SCH ×4 (00:35→18:00)
[2019-02-10] MEDS: FENTANYL CITRATE/PF 500 MCG in SODIUM CHLORIDE 0.9% 40 ML IV PRN ×3 (00:58→19:30)
[2019-02-10] MEDS: RISPERIDONE 0.5MG TABLET PO SCH ×3 (03:00→19:00)
[2019-02-10 05:49] LABS: BASOPHILS % 0.5 % (0.0-2.0); EOSINOPHILS % 0.3 % (0.0-5.0); HEMATOCRIT. 34.4 % (36.0-48.0); HEMOGLOBIN. 11.4 g/dL (12.0-16.0); LYMPHOCYTES % 10.6 % (20.0-50.0); MEAN CORPUSCULAR HEMOGLOBIN 29.6 pg (28.0-32.0); MEAN CORPUSCULAR VOLUME 89.4 fL (81.0-99.0); MEAN PLATELET VOLUME 7.7 fl (7.4-10.4); MONOCYTES % 5.6 % (2.0-8.0); PLATELET 424 x1000/uL (130-400); RED BLOOD CELL COUNT 3.85 mill/uL (4.2-5.4); RED CELL DISTRIBUTION WIDTH 15.7 % (11.6-14.6)
[2019-02-10 05:50] LABS: INR 1.3; PARTIAL THROMBOPLASTIN TIME 23.3 sec (23.4-31.0); PROTHROMBIN TIME 12.7 sec (9.6-11.0)
[2019-02-10 05:56] LABS: CHLORIDE 111 mEq/L (98-107)
[2019-02-10] MEDS: INSULIN LISPRO 100 UNITS/ML SUBCUT SCH ×4 (06:00→18:00)
[2019-02-10 06:01] LABS: PHOSPHORUS 2.3 mg/dL (2.5-4.9)
[2019-02-10] MEDS: MULTIVITAMINS,THER W-MINERALS TABLET JT SCH (09:00)
[2019-02-10] MEDS ORDERED: POTASSIUM PHOS,M-BASIC-D-BASIC 20 MMOL in DEXT 5% WATER 243.3333 ML IV SCH (13:00)
[2019-02-10] MEDS: CEFTRIAXONE 1 G PREMIX 50 ML IV SCH (15:27)
[2019-02-11] VITALS (91 sets, daily range): BP systolic 80–175; BP diastolic 24–164
[2019-02-11] MEDS: BLOOD SUGAR DIAGNOSTIC STRIP TEST SCH ×3 (00:07→23:55)
[2019-02-11] MEDS: IPRATROPIUM BROMIDE (0.02%) 0.5MG/2.5ML NEB HHN SCH ×6 (00:20→20:32)
[2019-02-11] MEDS: FENTANYL CITRATE/PF 500 MCG in SODIUM CHLORIDE 0.9% 40 ML IV PRN (01:09)
[2019-02-11] MEDS: RISPERIDONE 0.5MG TABLET PO SCH ×3 (02:13→19:00)
[2019-02-11 05:25] LABS: BASOPHILS % 0.3 % (0.0-2.0); EOSINOPHILS % 0.6 % (0.0-5.0); HEMATOCRIT. 35.5 % (36.0-48.0); HEMOGLOBIN. 11.9 g/dL (12.0-16.0); LYMPHOCYTES % 20.2 % (20.0-50.0); MEAN CORPUSCULAR VOLUME 89.2 fL (81.0-99.0); MEAN PLATELET VOLUME 7.7 fl (7.4-10.4); MONOCYTES % 9.1 % (2.0-8.0); NEUTROPHILS % 69.8 % (40.0-76.0); PLATELET 449 x1000/uL (130-400); RED BLOOD CELL COUNT 3.98 mill/uL (4.2-5.4); RED CELL DISTRIBUTION WIDTH 15.9 % (11.6-14.6)
[2019-02-11 05:33] LABS: CHLORIDE 112 mEq/L (98-107)
[2019-02-11] MEDS: INSULIN LISPRO 100 UNITS/ML SUBCUT SCH ×3 (06:00→23:55)
[2019-02-11] MEDS: FENTANYL CITRATE/PF 1,000 MCG in SODIUM CHLORIDE 0.9% 80 ML IV PRN ×2 (07:28→19:51)
[2019-02-11] MEDS: MULTIVITAMINS,THER W-MINERALS TABLET JT SCH (08:40)
[2019-02-11] MEDS: CEFTRIAXONE 1 G PREMIX 50 ML IV SCH (13:58)
[2019-02-11] MEDS: HALOPERIDOL LACTATE 5MG/ML VIAL IM PRN (18:45)
[2019-02-12] VITALS (80 sets, daily range): BP systolic 93–198; BP diastolic 20–157
[2019-02-12] MEDS: IPRATROPIUM BROMIDE (0.02%) 0.5MG/2.5ML NEB HHN SCH ×6 (00:28→21:09)
[2019-02-12 05:48] LABS: BASOPHILS % 0.4 % (0.0-2.0); EOSINOPHILS % 0.8 % (0.0-5.0); HEMATOCRIT. 34.6 % (36.0-48.0); HEMOGLOBIN. 11.5 g/dL (12.0-16.0); LYMPHOCYTES % 19.8 % (20.0-50.0); MEAN CORPUSCULAR HEMOGLOBIN 29.8 pg (28.0-32.0); MEAN PLATELET VOLUME 7.9 fl (7.4-10.4); MONOCYTES % 9.2 % (2.0-8.0); NEUTROPHILS % 69.8 % (40.0-76.0); PLATELET 433 x1000/uL (130-400); RED BLOOD CELL COUNT 3.85 mill/uL (4.2-5.4); RED CELL DISTRIBUTION WIDTH 15.6 % (11.6-14.6)
[2019-02-12 05:50] LABS: CHLORIDE 112 mEq/L (98-107)
[2019-02-12] MEDS: INSULIN LISPRO 100 UNITS/ML SUBCUT SCH ×3 (06:00→18:00)
[2019-02-12] MEDS: BLOOD SUGAR DIAGNOSTIC STRIP TEST SCH ×3 (06:10→18:53)
[2019-02-12] MEDS ORDERED: POTASSIUM PHOS,M-BASIC-D-BASIC 30 MMOL in SODIUM CHLORIDE 0.9% 500 ML IV NR (08:00)
[2019-02-12] MEDS: MULTIVITAMINS,THER W-MINERALS TABLET JT SCH (08:39)
[2019-02-12] MEDS: HALOPERIDOL LACTATE 5MG/ML VIAL IM PRN ×2 (09:23→18:53)
[2019-02-12] MEDS: FENTANYL CITRATE/PF 1,000 MCG in SODIUM CHLORIDE 0.9% 80 ML IV PRN ×2 (09:26→18:54)
[2019-02-12] MEDS: RISPERIDONE 0.5MG TABLET PO SCH ×2 (11:00→18:40)
[2019-02-12] MEDS: CEFTRIAXONE 1 G PREMIX 50 ML IV SCH (15:27)
[2019-02-13] VITALS (93 sets, daily range): BP systolic 91–178; BP diastolic 33–154
[2019-02-13] MEDS: INSULIN LISPRO 100 UNITS/ML SUBCUT SCH ×4 (00:04→18:00)
[2019-02-13] MEDS: BLOOD SUGAR DIAGNOSTIC STRIP TEST SCH ×4 (00:04→18:45)
[2019-02-13] MEDS: IPRATROPIUM BROMIDE (0.02%) 0.5MG/2.5ML NEB HHN SCH ×6 (00:38→20:24)
[2019-02-13] MEDS: RISPERIDONE 0.5MG TABLET PO SCH (03:00)
[2019-02-13] MEDS: FENTANYL CITRATE/PF 1,000 MCG in SODIUM CHLORIDE 0.9% 80 ML IV PRN ×2 (05:04→16:35)
[2019-02-13 05:21] LABS: BASOPHILS % 0.7 % (0.0-2.0); EOSINOPHILS % 0.9 % (0.0-5.0); HEMATOCRIT. 34.1 % (36.0-48.0); HEMOGLOBIN. 11.5 g/dL (12.0-16.0); LYMPHOCYTES % 17.8 % (20.0-50.0); MEAN CORPUSCULAR HEMOGLOBIN 30.1 pg (28.0-32.0); MEAN CORPUSCULAR VOLUME 89.5 fL (81.0-99.0); MEAN PLATELET VOLUME 7.8 fl (7.4-10.4); MONOCYTES % 9.1 % (2.0-8.0); NEUTROPHILS % 71.5 % (40.0-76.0); PLATELET 405 x1000/uL (130-400); RED BLOOD CELL COUNT 3.81 mill/uL (4.2-5.4); RED CELL DISTRIBUTION WIDTH 15.3 % (11.6-14.6)
[2019-02-13 05:41] LABS: INR 1.2; PROTHROMBIN TIME 12.6 sec (9.6-11.0)
[2019-02-13 05:50] LABS: CHLORIDE 113 mEq/L (98-107)
[2019-02-13 06:05] LABS: PHOSPHORUS 2.4 mg/dL (2.5-4.9)
[2019-02-13] MEDS: DEXT 5%/0.45% NACL 1000ML 1,000 ML IV SCH ×2 (09:22→22:23)
[2019-02-13] MEDS ORDERED: LIDOCAINE HCL/EPINEPHRINE 1%-EPI 1:100,000 20 ML VIAL ONE (09:52)
[2019-02-13] MEDS ORDERED: ROCURONIUM BROMIDE 10MG/ML VIAL 5ML IV ONE (10:22)
[2019-02-13] MEDS ORDERED: CLINDAMYCIN 900 MG in SODIUM CHLORIDE 0.9% 50 ML IV ONE (10:45)
[2019-02-13] MEDS: HALOPERIDOL LACTATE 5MG/ML VIAL IM PRN (14:32)
[2019-02-13] MEDS: CEFTRIAXONE 1 G PREMIX 50 ML IV SCH (14:32)
[2019-02-13] MEDS ORDERED: MAGNESIUM 4 G PREMIX 100 ML IV NR (21:00)
[2019-02-13] MEDS ORDERED: SODIUM PHOS,M-BASIC-D-BASIC 20 MM in DEXT 5% WATER 243.3333 ML IV NR (21:00)
[2019-02-13] MEDS: HYDROMORPHONE HCL/PF 2MG/ML CPJ IV PRN (22:08)
[2019-02-14] VITALS (57 sets, daily range): BP systolic 85–140; BP diastolic 38–85
[2019-02-14] MEDS: IPRATROPIUM BROMIDE (0.02%) 0.5MG/2.5ML NEB HHN SCH ×7 (00:23→23:39)
[2019-02-14] MEDS: BLOOD SUGAR DIAGNOSTIC STRIP TEST SCH ×5 (00:38→23:22)
[2019-02-14] MEDS: FENTANYL CITRATE/PF 1,000 MCG in SODIUM CHLORIDE 0.9% 80 ML IV PRN (02:13)
[2019-02-14] MEDS: HYDROMORPHONE HCL/PF 2MG/ML CPJ IV PRN ×3 (04:29→18:12)
[2019-02-14 05:45] LABS: BASOPHILS % 0.4 % (0.0-2.0); EOSINOPHILS % 1.3 % (0.0-5.0); HEMATOCRIT. 34.3 % (36.0-48.0); HEMOGLOBIN. 11.2 g/dL (12.0-16.0); LYMPHOCYTES % 20.2 % (20.0-50.0); MEAN CORPUSCULAR HEMOGLOBIN 29.6 pg (28.0-32.0); MEAN CORPUSCULAR VOLUME 90.8 fL (81.0-99.0); MEAN PLATELET VOLUME 7.6 fl (7.4-10.4); MONOCYTES % 8.9 % (2.0-8.0); NEUTROPHILS % 69.2 % (40.0-76.0); PLATELET 365 x1000/uL (130-400); RED BLOOD CELL COUNT 3.77 mill/uL (4.2-5.4); RED CELL DISTRIBUTION WIDTH 15.3 % (11.6-14.6)
[2019-02-14] MEDS: INSULIN LISPRO 100 UNITS/ML SUBCUT SCH ×5 (05:46→23:22)
[2019-02-14 06:01] LABS: CHLORIDE 112 mEq/L (98-107)
[2019-02-14 09:43] LABS: BG CARBOXYHEMOGLOBIN 0.3 % (0.5-1.5); BG DEOXYHEMOGLOBIN 1.2 % (0.0-5.0); BG FRACTION INSPIRED OXYGEN 35; BG HCO3 ACT 19.3 mmol/L (22.0-26.0); BG METHEMOGLOBIN 0.3 % (0.0-1.5); BG OXYGEN SATURATION 98.8 % (92.0-98.5); BG OXYHEMOGLOBIN 98.2 % (94.0-97.0); BG PCO2 26.6 mmHg (35.0-45.0); BG PH 7.479 (7.350-7.450); BG PO2 164.1 mmHg (75.0-100.0); BG SAMPLE SITE LEFT RADIAL; BG TIDAL VOLUME(mL) 450 mL; BG TOTAL HEMOGLOBIN 11.2 g/dL (12.0-18.0); BG VENT MODE VENT - A/C; BG VENT RATE 12 set
[2019-02-14 12:23] LABS: BG BASE EXCESS -4.1 mmol/L (-2.0-2.0); BG CARBOXYHEMOGLOBIN 0.4 % (0.5-1.5); BG DEOXYHEMOGLOBIN 1.3 % (0.0-5.0); BG FRACTION INSPIRED OXYGEN 35; BG HCO3 ACT 18.9 mmol/L (22.0-26.0); BG OXYGEN SATURATION 98.7 % (92.0-98.5); BG OXYHEMOGLOBIN 98.3 % (94.0-97.0); BG PCO2 28.6 mmHg (35.0-45.0); BG PH 7.438 (7.350-7.450); BG PO2 163.6 mmHg (75.0-100.0); BG PRESSURE SUPPORT 14; BG SAMPLE SITE LEFT RADIAL; BG TIDAL VOLUME(mL) 450 mL; BG TOTAL HEMOGLOBIN 12.5 g/dL (12.0-18.0); BG VENT MODE VENT - SIMV; BG VENT RATE 8 set
[2019-02-14] MEDS: CEFTRIAXONE 1 G PREMIX 50 ML IV SCH (13:41)
[2019-02-14] MEDS: DEXT 5%/0.45% NACL 1000ML 1,000 ML IV SCH ×2 (19:25→20:54)
[2019-02-15] VITALS (29 sets, daily range): BP systolic 103–157; BP diastolic 47–95
[2019-02-15] MEDS: HYDROMORPHONE HCL/PF 2MG/ML CPJ IV PRN ×4 (02:16→22:00)
[2019-02-15] MEDS: IPRATROPIUM BROMIDE (0.02%) 0.5MG/2.5ML NEB HHN SCH ×5 (03:58→20:57)
[2019-02-15] MEDS: INSULIN LISPRO 100 UNITS/ML SUBCUT SCH ×4 (05:16→23:54)
[2019-02-15] MEDS: BLOOD SUGAR DIAGNOSTIC STRIP TEST SCH ×4 (05:16→23:54)
[2019-02-15 13:30] LABS: BG BASE EXCESS -2.7 mmol/L (-2.0-2.0); BG CARBOXYHEMOGLOBIN 0.3 % (0.5-1.5); BG DEOXYHEMOGLOBIN 1.6 % (0.0-5.0); BG FRACTION INSPIRED OXYGEN 90; BG METHEMOGLOBIN 0.1 % (0.0-1.5); BG OXYGEN SATURATION 98.4 % (92.0-98.5); BG PCO2 24.5 mmHg (35.0-45.0); BG PH 7.507 (7.350-7.450); BG PO2 141.6 mmHg (75.0-100.0); BG PRESSURE SUPPORT 14; BG SAMPLE SITE LEFT RADIAL; BG TIDAL VOLUME(mL) 450 mL; BG TOTAL HEMOGLOBIN 11.5 g/dL (12.0-18.0); BG VENT MODE VENT - SIMV; BG VENT RATE 6 set
[2019-02-15] MEDS: CEFTRIAXONE 1 G PREMIX 50 ML IV SCH (14:05)
[2019-02-15] MEDS: DEXT 5%/0.45% NACL 1000ML 1,000 ML IV SCH (23:56)
[2019-02-16] VITALS (49 sets, daily range): BP systolic 119–172; BP diastolic 22–106
[2019-02-16] MEDS: IPRATROPIUM BROMIDE (0.02%) 0.5MG/2.5ML NEB HHN SCH ×6 (00:22→20:12)
[2019-02-16] MEDS: HYDROMORPHONE HCL/PF 2MG/ML CPJ IV PRN ×2 (05:05→12:33)
[2019-02-16 05:32] LABS: CHLORIDE 113 mEq/L (98-107)
[2019-02-16 05:35] LABS: BASOPHILS % 0.5 % (0.0-2.0); EOSINOPHILS % 1.1 % (0.0-5.0); HEMATOCRIT. 32.7 % (36.0-48.0); HEMOGLOBIN. 11.1 g/dL (12.0-16.0); LYMPHOCYTES % 18.2 % (20.0-50.0); MEAN CORPUSCULAR HEMOGLOBIN 30.1 pg (28.0-32.0); MEAN PLATELET VOLUME 7.9 fl (7.4-10.4); MONOCYTES % 8.4 % (2.0-8.0); NEUTROPHILS % 71.8 % (40.0-76.0); PLATELET 342 x1000/uL (130-400); RED BLOOD CELL COUNT 3.68 mill/uL (4.2-5.4); RED CELL DISTRIBUTION WIDTH 15.4 % (11.6-14.6)
[2019-02-16] MEDS: INSULIN LISPRO 100 UNITS/ML SUBCUT SCH ×3 (05:36→18:00)
[2019-02-16] MEDS: BLOOD SUGAR DIAGNOSTIC STRIP TEST SCH ×3 (05:36→18:42)
[2019-02-16] MEDS ORDERED: POTASSIUM CHLORIDE 20MEQ/PACKET JT NR (09:15)
[2019-02-16 09:58] LABS: PHOSPHORUS 1.8 mg/dL (2.5-4.9)
[2019-02-16] MEDS: METOPROLOL TARTRATE 25MG TABLET JT SCH ×2 (10:57→20:44)
[2019-02-16] MEDS ORDERED: POTASSIUM PHOS,M-BASIC-D-BASIC 30 MMOL in SODIUM CHLORIDE 0.9% 500 ML IV SCH (14:00)
[2019-02-16] MEDS: DEXT 5%/0.45% NACL 1000ML 1,000 ML IV SCH (14:36)
== END 2019-02-16 21:30 | DRG 3 ==
LOC: ER 22:29 → 5WST 01-09 00:59 → EDBEDREQTM 01-09 01:01 → EDBEDREQ 01-09 01:01 → ENRESERV 01-09 07:20 → 6WST 01-09 21:30 → MICUNO 01-25 11:50
PROVIDERS: ADMIT Internal Medicine; ATTEND Internal Medicine
PROC: 0DB78ZX Excision of Stomach, Pylorus, Via Natural or Artificial Opening Endoscopic, Diagnostic (ICD-10-PCS; 2019-01-21)
PROC: 02HV33Z Insertion of Infusion Device into Superior Vena Cava, Percutaneous Approach (ICD-10-PCS; 2019-01-23)
PROC: B518ZZA Fluoroscopy of Superior Vena Cava, Guidance (ICD-10-PCS; 2019-01-23)
PROC: B548ZZA Ultrasonography of Superior Vena Cava, Guidance (ICD-10-PCS; 2019-01-23)
PROC: 0DB60ZZ Excision of Stomach, Open Approach (ICD-10-PCS; principal; 2019-01-25)
PROC: 5A1955Z Respiratory Ventilation, Greater than 96 Consecutive Hours (ICD-10-PCS; 2019-01-25)
PROC: 30233N1 Transfusion of Nonautologous Red Blood Cells into Peripheral Vein, Percutaneous Approach (ICD-10-PCS; 2019-01-25)
PROC: 06HY33Z Insertion of Infusion Device into Lower Vein, Percutaneous Approach (ICD-10-PCS; 2019-01-26)
PROC: B54BZZA Ultrasonography of Right Lower Extremity Veins, Guidance (ICD-10-PCS; 2019-01-26)
PROC: 0B110F4 Bypass Trachea to Cutaneous with Tracheostomy Device, Open Approach (ICD-10-PCS; 2019-02-13)
DX: A41.9 Sepsis, unspecified organism (principal); E43 Unspecified severe protein-calorie malnutrition; G93.41 Metabolic encephalopathy; J96.00 Acute respiratory failure, unspecified whether with hypoxia or hypercapnia; E87.1 Hypo-osmolality and hyponatremia; N17.9 Acute kidney failure, unspecified; B37.49 Other urogenital candidiasis; C79.51 Secondary malignant neoplasm of bone; E87.0 Hyperosmolality and hypernatremia; E87.4 Mixed disorder of acid-base balance; K56.7 Ileus, unspecified; I82.621 Acute embolism and thrombosis of deep veins of right upper extremity; R57.9 Shock, unspecified; K31.1 Adult hypertrophic pyloric stenosis; Z99.11 Dependence on respirator [ventilator] status; C16.4 Malignant neoplasm of pylorus; D64.9 Anemia, unspecified; E86.0 Dehydration; E83.51 Hypocalcemia; F32.9 Major depressive disorder, single episode, unspecified; I35.0 Nonrheumatic aortic (valve) stenosis; I49.3 Ventricular premature depolarization; K22.5 Diverticulum of esophagus, acquired; E79.0 Hyperuricemia without signs of inflammatory arthritis and tophaceous disease; K57.90 Diverticulosis of intestine, part unspecified, without perforation or abscess without bleeding; J44.9 Chronic obstructive pulmonary disease, unspecified; K21.9 Gastro-esophageal reflux disease without esophagitis; I11.9 Hypertensive heart disease without heart failure; E11.65 Type 2 diabetes mellitus with hyperglycemia; D69.6 Thrombocytopenia, unspecified; E87.6 Hypokalemia; I49.1 Atrial premature depolarization; F03.90 Unspecified dementia, unspecified severity, without behavioral disturbance, psychotic disturbance, mood disturbance, and anxiety; F20.9 Schizophrenia, unspecified; E83.42 Hypomagnesemia; E83.39 Other disorders of phosphorus metabolism; E83.41 Hypermagnesemia; Z22.322 Carrier or suspected carrier of Methicillin resistant Staphylococcus aureus; Z88.2 Allergy status to sulfonamides; Z88.8 Allergy status to other drugs, medicaments and biological substances; Z92.21 Personal history of antineoplastic chemotherapy; Z78.1 Physical restraint status; Z68.28 Body mass index [BMI] 28.0-28.9, adult; Z79.899 Other long term (current) drug therapy
CPT/HCPCS: 36415; 36569; 36600; 70551; 71045; 74018; 74176; 76937; 77001; 80048; 80069; 80076; 80170; 80202; 82140; 82150; 82248; 82270; 82306; 82330; 82375; 82378; 82550; 82553; 82607; 82728; 82805; 82962; 83010; 83540; 83550; 83605; 83615; 83735; 83880; 84100; 84134; 84145; 84450; 84460; 84478; 84484; 84550; 85007; 85014; 85018; 85027; 85362; 85384; 85651; 86677; 86850; 86900; 86920; 87077; 87106; 87186; 88305; 88309; 88313; 93005; 93306; 93922; 93970; 93971; 94003; 94640; 96374; 96375; 97166; 99291; A6261; C1725; C1752; C1893; C9113; J0330; J0610; J0690; J0696; J1100; J1170; J1200; J1450; J1580; J1630; J1815; J1940; J1956; J2250; J2270; J2370; J2405; J2543; J2704; J2765; J3010; J3370; J3411; J3475; J3480; J3490; J7030; J7040; J7042; J7050; J7060; J7070; J7608; J7620; J8597; P9016; P9047; Q0162; Q9967; A4315

== ENCOUNTER 2019-07-31 12:49 | Inpatient (IN) | payer MEDICARE, MEDICAID ==
[~2019-07-31] VITALS: Ht 160 cm; Wt 72.6 kg
[~2019-07-31 12:49] MED LIST changes: -AMLO10TA80 PO; -DONE5TAB7 MT; -GABA-531 MT; -METO-539 PO; -MULT-1146 MT; -PROT40 MT
[2019-07-31] MEDS ORDERED: PIPERACILLIN/TAZ 3.375G PREMIX 50 ML IV ONE (13:30)
[2019-07-31] MEDS ORDERED: VANCOMYCIN 1 G PREMIX 200 ML IV ONE (13:30)
[2019-07-31] MEDS ORDERED: SODIUM CHLORIDE 0.9% 1000ML BAG (SEPSIS BOLUS) IV ONE (13:30)
[2019-07-31 14:07] LABS: CHLORIDE 119 mEq/L (98-107); HEMATOCRIT. 39.1 % (36.0-48.0); HEMOGLOBIN. 12.5 g/dL (12.0-16.0); MEAN CORPUSCULAR HEMOGLOBIN 28.7 pg (28.0-32.0); MEAN CORPUSCULAR VOLUME 89.8 fL (81.0-99.0); PLATELET 209 x1000/uL (130-400); RED BLOOD CELL COUNT 4.35 mill/uL (4.2-5.4); RED CELL DISTRIBUTION WIDTH 17.1 % (11.6-14.6)
[2019-07-31 14:51] LABS: PLATELET ESTIMATE NORMAL
[2019-07-31 15:32] LABS: CLARITY URINE CLOUDY (CLEAR); COLOR URINE YELLOW (YELLOW); KETONES URINE TRACE (NEGATIVE); LEUKOCYTE ESTERASE URINE 2+ (NEGATIVE); NITRITE URINE NEGATIVE (NEGATIVE); OCCULT BLOOD URINE TRACE (NEGATIVE); PROTEIN URINE NEGATIVE (NEGATIVE); SPECIFIC GRAVITY URINE 1.022 (1.005-1.030); UROBILINOGEN URINE 0.2 E.U./dL (0.2-1.0)
[2019-07-31] MEDS ORDERED: DIPHENHYDRAMINE 50MG/ML VIAL IV ONE (22:00)
[2019-08-01] VITALS (12 sets, daily range): BP systolic 111–155; BP diastolic 49–77
[2019-08-01] MEDS ORDERED: GLYC1TAB11 GT
[2019-08-01] MEDS ORDERED: LORA-250 GT (00:52)
[2019-08-01] MEDS ORDERED: HYDR1.5C TP (00:52)
[2019-08-01] MEDS ORDERED: METO-293 GT (00:52)
[2019-08-01] MEDS ORDERED: BUDE0.5A3 NEB (00:52)
[2019-08-01] MEDS ORDERED: CLON1PAT11 TD (00:52)
[2019-08-01] MEDS ORDERED: METO-539 PO (00:52)
[2019-08-01] MEDS ORDERED: QUET25TA GT (00:52)
[2019-08-01] MEDS ORDERED: HYDR453.4 TP (00:52)
[2019-08-01] MEDS ORDERED: ACET-2128 GT (00:52)
[2019-08-01] MEDS ORDERED: VANCOMYCIN 1 G PREMIX 200 ML IV SCH ×2 (03:30→14:00)
[2019-08-01] MEDS: PIPERACILLIN/TAZOBACTAM 2.25 G in DEXTROSE 5% WATER 50 ML IV SCH ×3 (03:36→23:23)
[2019-08-01] MEDS ORDERED: FOLIC ACID 1 MG, THIAMINE HCL 100 MG, MVI, ADULT NO.1 10 ML in DEXTROSE 5% WATER 1,000 ML IV SCH ×4 (04:00)
[2019-08-01] MEDS: CONTAINER EMPTY IV SCH (04:50)
[2019-08-01] MEDS: FLUCONAZOLE IV SCH (04:50)
[2019-08-01] MEDS ORDERED: PIPERACILLIN/TAZOBACTAM 2.25 G in DEXTROSE 5% WATER 50 ML IV SCH (06:00)
[2019-08-01 07:09] LABS: HEMATOCRIT. 34.3 % (36.0-48.0); HEMOGLOBIN. 10.6 g/dL (12.0-16.0); MEAN CORPUSCULAR HEMOGLOBIN 28.9 pg (28.0-32.0); MEAN CORPUSCULAR VOLUME 93.8 fL (81.0-99.0); MEAN PLATELET VOLUME 8.6 fl (7.4-10.4); PLATELET 117 x1000/uL (130-400); RED BLOOD CELL COUNT 3.65 mill/uL (4.2-5.4); RED CELL DISTRIBUTION WIDTH 17.7 % (11.6-14.6)
[2019-08-01 07:21] LABS: CHLORIDE 122 mEq/L (98-107)
[2019-08-01 07:24] LABS: AMYLASE 24 IU/L (25-115)
[2019-08-01 07:27] LABS: LDL CHOLESTEROL 53 mg/dL (5-100)
[2019-08-01 07:29] LABS: HDL CHOLESTEROL 26 mg/dL (40-59)
[2019-08-01 07:34] LABS: TOTAL IRON BINDING CAPACITY 272 ug/dL (250-450)
[2019-08-01 07:35] LABS: T4 FREE 1.18 ng/dL (0.76-1.46)
[2019-08-01] MEDS: BLOOD SUGAR DIAGNOSTIC STRIP TEST SCH ×4 (07:52→21:00)
[2019-08-01] MEDS: INSULIN LISPRO 100 UNITS/ML SUBCUT SCH ×4 (07:53→21:00)
[2019-08-01] MEDS: HYDROMORPHONE HCL/PF 2MG/ML CPJ IV PRN ×2 (08:03→23:24)
[2019-08-01] MEDS: PANTOPRAZOLE SODIUM 40 MG/VIAL IV SCH (09:29)
[2019-08-01 09:44] LABS: BG BASE EXCESS -7.1 mmol/L (-2.0-2.0); BG CARBOXYHEMOGLOBIN 0.1 % (0.5-1.5); BG DEOXYHEMOGLOBIN 1.6 % (0.0-5.0); BG FRACTION INSPIRED OXYGEN 35; BG HCO3 ACT 17.3 mmol/L (22.0-26.0); BG METHEMOGLOBIN 0.2 % (0.0-1.5); BG OXYGEN SATURATION 98.4 % (92.0-98.5); BG OXYHEMOGLOBIN 98.1 % (94.0-97.0); BG PCO2 31.1 mmHg (35.0-45.0); BG PH 7.363 (7.350-7.450); BG PO2 138.6 mmHg (75.0-100.0); BG SAMPLE SITE RIGHT RADIAL; BG TOTAL HEMOGLOBIN 10.5 g/dL (12.0-18.0); BG VENT MODE T-TUBE
[2019-08-01] MEDS ORDERED: FLUCONAZOLE 200 MG/100ML BAG 100 ML IV SCH (11:00)
[2019-08-01] MEDS ORDERED: DEXT 5%/0.2% NACL 1,000 ML IV SCH (12:00)
[2019-08-01] MEDS: DEXT 5%/0.2% NACL 1,000 ML IV SCH ×2 (12:00→22:00)
[2019-08-01] MEDS: DEXT 5%/0.45% NACL 1000ML 1,000 ML IV SCH (13:26)
[2019-08-01] MEDS ORDERED: DEXTROSE 5% WATER 1,000 ML IV SCH (14:00)
[2019-08-01 17:06] LABS: PLATELET ESTIMATE NORMAL
[2019-08-01] MEDS: APIXABAN 5 MG TABLET PO SCH (17:26)
[2019-08-01 19:28] LABS: CLARITY URINE CLOUDY (CLEAR); COLOR URINE YELLOW (YELLOW); KETONES URINE TRACE (NEGATIVE); LEUKOCYTE ESTERASE URINE 2+ (NEGATIVE); NITRITE URINE NEGATIVE (NEGATIVE); OCCULT BLOOD URINE 1+ (NEGATIVE); PROTEIN URINE 1+ (NEGATIVE); SPECIFIC GRAVITY URINE 1.024 (1.005-1.030); UROBILINOGEN URINE 0.2 E.U./dL (0.2-1.0)
[2019-08-02] VITALS (12 sets, daily range): BP systolic 109–148; BP diastolic 51–97
[2019-08-02] MEDS ORDERED: BISACODYL 10MG SUPP PR NR (01:15)
[2019-08-02] MEDS ORDERED: MAGNESIUM CITRATE 300ML SOLUTION PO NR (01:15)
[2019-08-02] MEDS: PIPERACILLIN/TAZOBACTAM 2.25 G in DEXTROSE 5% WATER 50 ML IV SCH ×3 (06:00→22:33)
[2019-08-02 06:43] LABS: BASOPHILS % 0.1 % (0.0-2.0); EOSINOPHILS % 0.3 % (0.0-5.0); HEMATOCRIT. 32.1 % (36.0-48.0); HEMOGLOBIN. 10.6 g/dL (12.0-16.0); MEAN CORPUSCULAR HEMOGLOBIN 29.6 pg (28.0-32.0); MEAN CORPUSCULAR VOLUME 89.9 fL (81.0-99.0); MEAN PLATELET VOLUME 8.2 fl (7.4-10.4); MONOCYTES % 6.2 % (2.0-8.0); NEUTROPHILS % 85.4 % (40.0-76.0); PLATELET 184 x1000/uL (130-400); RED BLOOD CELL COUNT 3.57 mill/uL (4.2-5.4); RED CELL DISTRIBUTION WIDTH 17.2 % (11.6-14.6)
[2019-08-02 07:47] LABS: CHLORIDE 117 mEq/L (98-107)
[2019-08-02] MEDS: INSULIN LISPRO 100 UNITS/ML SUBCUT SCH ×4 (08:00→21:00)
[2019-08-02] MEDS: CONTAINER EMPTY IV SCH (08:03)
[2019-08-02] MEDS: FLUCONAZOLE IV SCH (08:03)
[2019-08-02] MEDS: PANTOPRAZOLE SODIUM 40 MG/VIAL IV SCH (08:03)
[2019-08-02] MEDS: APIXABAN 5 MG TABLET PO SCH ×2 (08:03→18:22)
[2019-08-02] MEDS: BLOOD SUGAR DIAGNOSTIC STRIP TEST SCH ×4 (08:13→21:00)
[2019-08-02] MEDS: ONDANSETRON HCL 4MG/2ML INJ IV PRN ×3 (09:49→22:34)
[2019-08-02] MEDS: ACETAMINOPHEN 650MG/20.3ML UDC PO PRN (15:08)
[2019-08-02] MEDS: VANCOMYCIN 500 MG PREMIX 100 ML IV SCH (15:09)
[2019-08-02] MEDS: DEXT 5%/0.2% NACL 1,000 ML IV SCH ×2 (15:09→18:23)
[2019-08-03] VITALS (12 sets, daily range): BP systolic 135–180; BP diastolic 58–94
[2019-08-03] MEDS: HYDROMORPHONE HCL/PF 2MG/ML CPJ IV PRN ×3 (01:41→22:15)
[2019-08-03] MEDS: DEXT 5%/0.45% NACL 1000ML 1,000 ML IV SCH ×2 (04:30→14:53)
[2019-08-03] MEDS: PIPERACILLIN/TAZOBACTAM 2.25 G in DEXTROSE 5% WATER 50 ML IV SCH ×3 (05:01→22:03)
[2019-08-03] MEDS: ONDANSETRON HCL 4MG/2ML INJ IV PRN ×2 (05:02→11:59)
[2019-08-03 07:31] LABS: HEMATOCRIT. 29.2 % (36.0-48.0); HEMOGLOBIN. 9.4 g/dL (12.0-16.0); MEAN CORPUSCULAR HEMOGLOBIN 28.3 pg (28.0-32.0); MEAN CORPUSCULAR VOLUME 88.1 fL (81.0-99.0); MEAN PLATELET VOLUME 8.1 fl (7.4-10.4); PLATELET 186 x1000/uL (130-400); RED BLOOD CELL COUNT 3.31 mill/uL (4.2-5.4)
[2019-08-03] MEDS: INSULIN LISPRO 100 UNITS/ML SUBCUT SCH ×4 (08:00→21:00)
[2019-08-03] MEDS: APIXABAN 5 MG TABLET PO SCH ×2 (08:18→17:16)
[2019-08-03] MEDS: FLUCONAZOLE IV SCH (08:19)
[2019-08-03] MEDS: VANCOMYCIN 500 MG PREMIX 100 ML IV SCH (08:19)
[2019-08-03] MEDS: CONTAINER EMPTY IV SCH (08:19)
[2019-08-03] MEDS: BLOOD SUGAR DIAGNOSTIC STRIP TEST SCH ×4 (08:19→21:00)
[2019-08-03] MEDS: FAMOTIDINE 20MG/2ML VIAL IV SCH (08:19)
[2019-08-03 09:46] LABS: PLATELET ESTIMATE NORMAL
[2019-08-03] MEDS: DEXT 5%/0.2% NACL 1,000 ML IV SCH ×2 (11:59→22:03)
[2019-08-03] MEDS: MUPIROCIN 2% OINT 22GM TOP SCH ×2 (14:52→22:03)
[2019-08-04] VITALS (12 sets, daily range): BP systolic 143–164; BP diastolic 46–97
[2019-08-04] MEDS: DEXT 5%/0.45% NACL 1000ML 1,000 ML IV SCH ×2 (03:01→21:48)
[2019-08-04] MEDS: PIPERACILLIN/TAZOBACTAM 2.25 G in DEXTROSE 5% WATER 50 ML IV SCH (05:33)
[2019-08-04] MEDS: HYDROMORPHONE HCL/PF 2MG/ML CPJ IV PRN ×2 (05:33→12:18)
[2019-08-04 06:29] LABS: BASOPHILS % 0.2 % (0.0-2.0); EOSINOPHILS % 0.6 % (0.0-5.0); HEMATOCRIT. 34.6 % (36.0-48.0); HEMOGLOBIN. 10.9 g/dL (12.0-16.0); LYMPHOCYTES % 7.3 % (20.0-50.0); MEAN CORPUSCULAR HEMOGLOBIN 28.2 pg (28.0-32.0); MEAN CORPUSCULAR VOLUME 89.6 fL (81.0-99.0); MEAN PLATELET VOLUME 7.9 fl (7.4-10.4); MONOCYTES % 5.9 % (2.0-8.0); PLATELET 185 x1000/uL (130-400); RED BLOOD CELL COUNT 3.87 mill/uL (4.2-5.4); RED CELL DISTRIBUTION WIDTH 17.4 % (11.6-14.6)
[2019-08-04 07:51] LABS: CHLORIDE 113 mEq/L (98-107)
[2019-08-04] MEDS: INSULIN LISPRO 100 UNITS/ML SUBCUT SCH ×3 (08:00→17:36)
[2019-08-04 08:02] LABS: PHOSPHORUS 2.8 mg/dL (2.5-4.9)
[2019-08-04] MEDS: BLOOD SUGAR DIAGNOSTIC STRIP TEST SCH ×2 (08:15→12:15)
[2019-08-04] MEDS ORDERED: DIATR MEGLU/DIATRIZOATE SOLN 30ML ONE (08:19)
[2019-08-04] MEDS: FLUCONAZOLE IV SCH (09:09)
[2019-08-04] MEDS: CONTAINER EMPTY IV SCH (09:09)
[2019-08-04] MEDS: APIXABAN 5 MG TABLET PO SCH ×2 (09:52→17:59)
[2019-08-04] MEDS: MUPIROCIN 2% OINT 22GM TOP SCH ×2 (09:52→21:48)
[2019-08-04] MEDS: VANCOMYCIN 500 MG PREMIX 100 ML IV SCH (10:02)
[2019-08-04] MEDS: FAMOTIDINE 20MG/2ML VIAL IV SCH (10:02)
[2019-08-04] MEDS ORDERED: FLUCONAZOLE 100MG/50ML in BAG IV NR (12:00)
[2019-08-04] MEDS: DEXT 5%/0.2% NACL 1,000 ML IV SCH (12:17)
[2019-08-04] MEDS ORDERED: FLUCONAZOLE 200 MG/100ML BAG 100 ML IV SCH (13:00)
[2019-08-04] MEDS ORDERED: DIATR MEGLU/DIATRIZOATE SOLN 30ML PO NR (15:45)
[2019-08-04] MEDS ORDERED: BLOOD SUGAR DIAGNOSTIC STRIP TEST SCH (18:00)
[2019-08-05] VITALS (12 sets, daily range): BP systolic 104–153; BP diastolic 59–85
[2019-08-05] MEDS: BLOOD SUGAR DIAGNOSTIC STRIP TEST SCH ×4 (06:00→17:23)
[2019-08-05] MEDS: INSULIN LISPRO 100 UNITS/ML SUBCUT SCH ×4 (06:00→17:23)
[2019-08-05] MEDS: DEXT 5%/0.2% NACL 1,000 ML IV SCH (06:55)
[2019-08-05] MEDS: DEXT 5%/0.45% NACL 1000ML 1,000 ML IV SCH (07:01)
[2019-08-05] MEDS: FAMOTIDINE 20MG/2ML VIAL IV SCH (09:38)
[2019-08-05] MEDS: BISACODYL 10MG SUPP PR PRN (09:38)
[2019-08-05] MEDS: APIXABAN 5 MG TABLET PO SCH ×2 (09:38→17:35)
[2019-08-05] MEDS: MUPIROCIN 2% OINT 22GM TOP SCH ×2 (09:39→21:29)
[2019-08-05] MEDS: FLUCONAZOLE 200 MG/100ML BAG 100 ML IV SCH (09:39)
[2019-08-05] MEDS ORDERED: NA PHOS,M-B/NA PHOS,DI-BA ENEMA 118ML PR PRN (17:00)
[2019-08-06] VITALS (12 sets, daily range): BP systolic 123–171; BP diastolic 58–119
[2019-08-06] MEDS: DEXT 5%/0.45% NACL 1000ML 1,000 ML IV SCH ×3 (00:09→21:42)
[2019-08-06] MEDS: BLOOD SUGAR DIAGNOSTIC STRIP TEST SCH ×4 (00:22→17:56)
[2019-08-06] MEDS: INSULIN LISPRO 100 UNITS/ML SUBCUT SCH ×4 (06:00→17:57)
[2019-08-06] MEDS: DEXT 5%/0.2% NACL 1,000 ML IV SCH ×2 (08:48→10:14)
[2019-08-06] MEDS: BISACODYL 10MG SUPP PR PRN (09:05)
[2019-08-06] MEDS: ONDANSETRON HCL 4MG/2ML INJ IV PRN (09:05)
[2019-08-06] MEDS: FLUCONAZOLE 200 MG/100ML BAG 100 ML IV SCH (09:05)
[2019-08-06] MEDS: FAMOTIDINE 20MG/2ML VIAL IV SCH (09:05)
[2019-08-06] MEDS: APIXABAN 5 MG TABLET PO SCH ×2 (09:05→16:35)
[2019-08-06] MEDS: MUPIROCIN 2% OINT 22GM TOP SCH ×2 (09:05→20:37)
[2019-08-06] MEDS: DEXTROSE 50% WATER 50ML SYRINGE IV PRN (17:29)
[2019-08-07] VITALS (12 sets, daily range): BP systolic 119–163; BP diastolic 62–88
[2019-08-07] MEDS: BLOOD SUGAR DIAGNOSTIC STRIP TEST SCH ×4 (00:32→17:51)
[2019-08-07] MEDS: INSULIN LISPRO 100 UNITS/ML SUBCUT SCH ×4 (05:43→17:51)
[2019-08-07] MEDS: DEXTROSE 50% WATER 50ML SYRINGE IV PRN ×2 (05:43→17:54)
[2019-08-07] MEDS: FAMOTIDINE 20MG/2ML VIAL IV SCH (09:00)
[2019-08-07] MEDS: FLUCONAZOLE 200 MG/100ML BAG 100 ML IV SCH (09:00)
[2019-08-07] MEDS: MUPIROCIN 2% OINT 22GM TOP SCH ×2 (09:00→22:53)
[2019-08-07] MEDS: APIXABAN 5 MG TABLET PO SCH ×3 (09:00→17:54)
[2019-08-07] MEDS: DEXT 5%/0.2% NACL 1,000 ML IV SCH ×2 (13:24→13:40)
[2019-08-07 16:57] LABS: BASOPHILS % 0.2 % (0.0-2.0); EOSINOPHILS % 0.3 % (0.0-5.0); HEMATOCRIT. 32.5 % (36.0-48.0); HEMOGLOBIN. 10.4 g/dL (12.0-16.0); LYMPHOCYTES % 9.3 % (20.0-50.0); MEAN CORPUSCULAR HEMOGLOBIN 28.1 pg (28.0-32.0); MEAN PLATELET VOLUME 7.8 fl (7.4-10.4); MONOCYTES % 4.8 % (2.0-8.0); NEUTROPHILS % 85.4 % (40.0-76.0); PLATELET 308 x1000/uL (130-400); RED BLOOD CELL COUNT 3.69 mill/uL (4.2-5.4); RED CELL DISTRIBUTION WIDTH 16.7 % (11.6-14.6)
[2019-08-07 17:19] LABS: CHLORIDE 113 mEq/L (98-107)
[2019-08-07 17:25] LABS: PHOSPHORUS 2.3 mg/dL (2.5-4.9)
[2019-08-07 18:08] LABS: CLARITY URINE CLOUDY (CLEAR); COLOR URINE YELLOW (YELLOW); KETONES URINE NEGATIVE (NEGATIVE); LEUKOCYTE ESTERASE URINE 1+ (NEGATIVE); NITRITE URINE NEGATIVE (NEGATIVE); OCCULT BLOOD URINE 2+ (NEGATIVE); PH URINE 5.5 (4.5-8.0); PROTEIN URINE 1+ (NEGATIVE); SPECIFIC GRAVITY URINE 1.009 (1.005-1.030); UROBILINOGEN URINE 0.2 E.U./dL (0.2-1.0)
[2019-08-08] VITALS (12 sets, daily range): BP systolic 99–158; BP diastolic 41–103
[2019-08-08] MEDS ORDERED: POTASSIUM PHOS,M-BASIC-D-BASIC 20 MMOL in DEXT 5% WATER 250 ML IV NR ×2
[2019-08-08] MEDS ORDERED: MAGNESIUM 4 G PREMIX 100 ML IV NR
[2019-08-08] MEDS ORDERED: POTASSIUM CHLORIDE INJ 40 MEQ in DEXT 5% WATER 500 ML IV NR ×2
[2019-08-08] MEDS: ONDANSETRON HCL 4MG/2ML INJ IV PRN (05:48)
[2019-08-08] MEDS: INSULIN LISPRO 100 UNITS/ML SUBCUT SCH ×4 (06:00→18:18)
[2019-08-08] MEDS: BLOOD SUGAR DIAGNOSTIC STRIP TEST SCH ×4 (06:06→18:18)
[2019-08-08 07:10] LABS: BASOPHILS % 0.1 % (0.0-2.0); EOSINOPHILS % 0.4 % (0.0-5.0); HEMATOCRIT. 31.7 % (36.0-48.0); HEMOGLOBIN. 10.2 g/dL (12.0-16.0); INR 1.2; LYMPHOCYTES % 10.8 % (20.0-50.0); MEAN CORPUSCULAR HEMOGLOBIN 28.3 pg (28.0-32.0); MEAN CORPUSCULAR VOLUME 87.8 fL (81.0-99.0); MEAN PLATELET VOLUME 7.8 fl (7.4-10.4); MONOCYTES % 3.1 % (2.0-8.0); NEUTROPHILS % 85.6 % (40.0-76.0); PLATELET 335 x1000/uL (130-400); PROTHROMBIN TIME 12.5 sec (9.6-11.0); RED BLOOD CELL COUNT 3.61 mill/uL (4.2-5.4)
[2019-08-08 07:36] LABS: CHLORIDE 110 mEq/L (98-107)
[2019-08-08] MEDS: APIXABAN 5 MG TABLET PO SCH ×2 (08:10→17:00)
[2019-08-08] MEDS ORDERED: LIDOCAINE HCL 1% 20ML VIAL (Pyxis) INJ ONE (08:21)
[2019-08-08] MEDS ORDERED: ALBUMIN HUMAN 25GM/100ML (25%) IV SCH (09:00)
[2019-08-08] MEDS: MUPIROCIN 2% OINT 22GM TOP SCH (09:31)
[2019-08-08] MEDS: FAMOTIDINE 20MG/2ML VIAL IV SCH (09:31)
[2019-08-08] MEDS: FLUCONAZOLE 200 MG/100ML BAG 100 ML IV SCH (10:59)
[2019-08-08] MEDS: DEXT 5%/0.45% NACL 1000ML 1,000 ML IV SCH (14:03)
[2019-08-08] MEDS: DEXT 5%/0.2% NACL 1,000 ML IV SCH (14:04)
[2019-08-08] MEDS ORDERED: MIDAZOLAM HCL 5 MG/5 ML VIAL ONE (14:57)
[2019-08-08] MEDS ORDERED: FENTANYL CITRATE/PF 50MCG/ML 2ML VIAL ONE (14:57)
[2019-08-08] MEDS ORDERED: MIDAZOLAM HCL 5 MG/5 ML VIAL IV PRN (15:35)
[2019-08-08] MEDS ORDERED: FENTANYL CITRATE/PF 50MCG/ML 2ML VIAL IV PRN (15:36)
[2019-08-09] VITALS (12 sets, daily range): BP systolic 115–167; BP diastolic 50–90
[2019-08-09] MEDS: ALBUMIN HUMAN 25GM/100ML (25%) IV SCH ×2 (00:08→09:50)
[2019-08-09] MEDS: MUPIROCIN 2% OINT 22GM TOP SCH ×2 (00:08→09:50)
[2019-08-09] MEDS: DEXT 5%/0.2% NACL 1,000 ML IV SCH (05:34)
[2019-08-09] MEDS: INSULIN LISPRO 100 UNITS/ML SUBCUT SCH ×3 (05:54→17:01)
[2019-08-09] MEDS: BLOOD SUGAR DIAGNOSTIC STRIP TEST SCH ×4 (05:54→17:00)
[2019-08-09] MEDS: DEXTROSE 50% WATER 50ML SYRINGE IV PRN (05:55)
[2019-08-09] MEDS: FAMOTIDINE 20MG/2ML VIAL IV SCH (09:50)
[2019-08-09] MEDS: APIXABAN 5 MG TABLET PO SCH ×2 (09:50→17:00)
[2019-08-09] MEDS ORDERED: DIATR MEGLU/DIATRIZOATE SOLN 30ML ONE (11:21)
[2019-08-09] MEDS: METOCLOPRAMIDE HCL 10MG/2ML VIAL IV SCH ×2 (13:46→17:00)
[2019-08-09] MEDS: FLUCONAZOLE 200 MG/100ML BAG 100 ML IV SCH (13:46)
[2019-08-09] MEDS: HYDROMORPHONE HCL/PF 2MG/ML CPJ IV PRN (13:47)
[2019-08-09] MEDS: DEXT 5%/0.45% NACL 1000ML 1,000 ML IV SCH (13:59)
[2019-08-09] MEDS ORDERED: INSULIN LISPRO 100 UNITS/ML SUBCUT SCH (18:00)
[2019-08-09] MEDS: DIPHENHYDRAMINE 50MG/ML VIAL IV PRN (18:45)
[2019-08-09 19:44] LABS: CHLORIDE 111 mEq/L (98-107)
[2019-08-09 19:52] LABS: EOSINOPHILS % 0.8 % (0.0-5.0); HEMATOCRIT. 23.2 % (36.0-48.0); HEMOGLOBIN. 7.6 g/dL (12.0-16.0); LYMPHOCYTES % 9.7 % (20.0-50.0); MEAN CORPUSCULAR HEMOGLOBIN 28.5 pg (28.0-32.0); MEAN CORPUSCULAR VOLUME 87.4 fL (81.0-99.0); MEAN PLATELET VOLUME 7.5 fl (7.4-10.4); MONOCYTES % 3.9 % (2.0-8.0); NEUTROPHILS % 85.6 % (40.0-76.0); PLATELET 224 x1000/uL (130-400); RED BLOOD CELL COUNT 2.65 mill/uL (4.2-5.4); RED CELL DISTRIBUTION WIDTH 16.9 % (11.6-14.6)
[2019-08-10] VITALS (11 sets, daily range): BP systolic 120–146; BP diastolic 51–87
[2019-08-10] MEDS: BLOOD SUGAR DIAGNOSTIC STRIP TEST SCH ×5 (00:02→23:41)
[2019-08-10] MEDS: METOCLOPRAMIDE HCL 10MG/2ML VIAL IV SCH ×5 (00:02→23:41)
[2019-08-10] MEDS: ALBUMIN HUMAN 25GM/100ML (25%) IV SCH ×3 (00:02→21:09)
[2019-08-10] MEDS: MUPIROCIN 2% OINT 22GM TOP SCH (00:08)
[2019-08-10] MEDS: INSULIN LISPRO 100 UNITS/ML SUBCUT SCH ×5 (05:55→23:41)
[2019-08-10] MEDS: DIPHENHYDRAMINE 50MG/ML VIAL IV PRN ×2 (05:55→14:52)
[2019-08-10] MEDS: DEXT 5%/0.45% NACL 1000ML 1,000 ML IV SCH (06:00)
[2019-08-10] MEDS: FAMOTIDINE 20MG/2ML VIAL IV SCH (10:21)
[2019-08-10] MEDS: FLUCONAZOLE 200 MG/100ML BAG 100 ML IV SCH (10:21)
[2019-08-10] MEDS: APIXABAN 5 MG TABLET PO SCH ×2 (10:22→17:30)
[2019-08-10] MEDS ORDERED: POTASSIUM PHOS,M-BASIC-D-BASIC 20 MMOL in DEXT 5% WATER 243.3333 ML IV NR (10:30)
[2019-08-10 12:30] LABS: BASOPHILS % 0.2 % (0.0-2.0); EOSINOPHILS % 1.3 % (0.0-5.0); HEMATOCRIT. 23.2 % (36.0-48.0); HEMOGLOBIN. 7.6 g/dL (12.0-16.0); LYMPHOCYTES % 10.5 % (20.0-50.0); MEAN CORPUSCULAR HEMOGLOBIN 28.5 pg (28.0-32.0); MEAN CORPUSCULAR VOLUME 86.6 fL (81.0-99.0); MEAN PLATELET VOLUME 7.3 fl (7.4-10.4); MONOCYTES % 3.9 % (2.0-8.0); NEUTROPHILS % 84.1 % (40.0-76.0); PLATELET 222 x1000/uL (130-400); RED BLOOD CELL COUNT 2.68 mill/uL (4.2-5.4); RED CELL DISTRIBUTION WIDTH 16.9 % (11.6-14.6)
[2019-08-10] MEDS: ONDANSETRON HCL 4MG/2ML INJ IV PRN (12:31)
[2019-08-10] MEDS: HYDROMORPHONE HCL/PF 2MG/ML CPJ IV PRN (12:57)
[2019-08-10] MEDS ORDERED: [UNRECOGNIZED DRUG - REMARK] IV SCH ×4 (14:30)
[2019-08-10] MEDS: MICAFUNGIN 100MG in NORMAL SALINE 100ML IV SCH (15:49)
[2019-08-10] MEDS ORDERED: POTASSIUM PHOS,M-BASIC-D-BASIC 20 MMOL in DEXTROSE 5% WATER 250 ML IV NR (16:00)
[2019-08-10] MEDS: [UNRECOGNIZED DRUG - REMARK] IV SCH ×5 (17:29)
[2019-08-10 20:50] LABS: BASOPHILS % 0.3 % (0.0-2.0); EOSINOPHILS % 0.9 % (0.0-5.0); HEMATOCRIT. 26.8 % (36.0-48.0); HEMOGLOBIN. 8.8 g/dL (12.0-16.0); LYMPHOCYTES % 10.7 % (20.0-50.0); MEAN CORPUSCULAR HEMOGLOBIN 28.6 pg (28.0-32.0); MEAN CORPUSCULAR VOLUME 87.5 fL (81.0-99.0); MEAN PLATELET VOLUME 7.3 fl (7.4-10.4); NEUTROPHILS % 84.1 % (40.0-76.0); PLATELET 223 x1000/uL (130-400); RED BLOOD CELL COUNT 3.07 mill/uL (4.2-5.4)
[2019-08-10 21:12] LABS: PHOSPHORUS 4.5 mg/dL (2.5-4.9)
[2019-08-11] VITALS (13 sets, daily range): BP systolic 117–155; BP diastolic 53–85
[2019-08-11] MEDS ORDERED: MAGNESIUM 4 G PREMIX 100 ML IV SCH (01:00)
[2019-08-11] MEDS: INSULIN LISPRO 100 UNITS/ML SUBCUT SCH ×4 (06:00→23:10)
[2019-08-11] MEDS: METOCLOPRAMIDE HCL 10MG/2ML VIAL IV SCH ×4 (06:01→23:10)
[2019-08-11] MEDS: DEXT 5%/0.45% NACL KCL 30MEQ/L 1,000 ML IV SCH ×2 (06:06→19:33)
[2019-08-11] MEDS: BLOOD SUGAR DIAGNOSTIC STRIP TEST SCH ×4 (06:07→23:11)
[2019-08-11 07:52] LABS: CHLORIDE 109 mEq/L (98-107)
[2019-08-11 07:59] LABS: PHOSPHORUS 2.9 mg/dL (2.5-4.9)
[2019-08-11] MEDS: APIXABAN 5 MG TABLET PO SCH (08:51)
[2019-08-11] MEDS: FAMOTIDINE 20MG/2ML VIAL IV SCH (08:51)
[2019-08-11] MEDS ORDERED: POTASSIUM CHLORIDE INJ 40 MEQ in DEXT 5% WATER 500 ML IV NR (11:00)
[2019-08-11] MEDS: DIPHENHYDRAMINE 50MG/ML VIAL IV PRN (14:10)
[2019-08-11] MEDS: MICAFUNGIN 100MG in NORMAL SALINE 100ML IV SCH (14:30)
[2019-08-11] MEDS: [UNRECOGNIZED DRUG - REMARK] IV SCH ×5 (14:30)
[2019-08-11] MEDS ORDERED: ENOXAPARIN 80MG/0.8ML SYR SUBCUT SCH (18:00)
[2019-08-11] MEDS: HYDROMORPHONE HCL/PF 2MG/ML CPJ IV PRN (22:35)
[2019-08-12] VITALS (11 sets, daily range): BP systolic 127–158; BP diastolic 47–100
[2019-08-12] MEDS: DIPHENHYDRAMINE 50MG/ML VIAL IV PRN ×3 (00:28→16:22)
[2019-08-12] MEDS: INSULIN LISPRO 100 UNITS/ML SUBCUT SCH ×3 (05:25→18:00)
[2019-08-12] MEDS: METOCLOPRAMIDE HCL 10MG/2ML VIAL IV SCH ×3 (05:25→18:33)
[2019-08-12] MEDS: BLOOD SUGAR DIAGNOSTIC STRIP TEST SCH ×3 (05:26→18:32)
[2019-08-12 07:27] LABS: BASOPHILS % 0.3 % (0.0-2.0); EOSINOPHILS % 0.6 % (0.0-5.0); HEMATOCRIT. 25.4 % (36.0-48.0); HEMOGLOBIN. 8.2 g/dL (12.0-16.0); LYMPHOCYTES % 12.1 % (20.0-50.0); MEAN CORPUSCULAR HEMOGLOBIN 28.2 pg (28.0-32.0); MEAN CORPUSCULAR VOLUME 87.5 fL (81.0-99.0); MEAN PLATELET VOLUME 7.8 fl (7.4-10.4); MONOCYTES % 4.9 % (2.0-8.0); NEUTROPHILS % 82.1 % (40.0-76.0); PLATELET 250 x1000/uL (130-400); RED CELL DISTRIBUTION WIDTH 16.9 % (11.6-14.6)
[2019-08-12 07:50] LABS: CHLORIDE 111 mEq/L (98-107)
[2019-08-12 07:59] LABS: PHOSPHORUS 1.6 mg/dL (2.5-4.9)
[2019-08-12] MEDS: FAMOTIDINE 20MG/2ML VIAL IV SCH (08:46)
[2019-08-12] MEDS: [UNRECOGNIZED DRUG - REMARK] IV SCH ×5 (16:21)
[2019-08-12] MEDS: DEXT 5%/0.45% NACL KCL 30MEQ/L 1,000 ML IV SCH (16:22)
[2019-08-12] MEDS: MICAFUNGIN 100MG in NORMAL SALINE 100ML IV SCH (16:22)
[2019-08-12] MEDS ORDERED: SODIUM PHOS,M-BASIC-D-BASIC 30 MM in DEXT 5% WATER 500 ML IV NR (17:00)
[2019-08-12] MEDS: ACETAMINOPHEN 650MG SUPP PR PRN (19:06)
[2019-08-13] VITALS (12 sets, daily range): BP systolic 115–171; BP diastolic 62–91
[2019-08-13] MEDS: METOCLOPRAMIDE HCL 10MG/2ML VIAL IV SCH ×4 (01:21→17:10)
[2019-08-13 05:52] LABS: INR 1.4; PROTHROMBIN TIME 13.7 sec (9.6-11.0)
[2019-08-13] MEDS: DEXT 5%/0.45% NACL KCL 30MEQ/L 1,000 ML IV SCH ×2 (05:58→18:06)
[2019-08-13] MEDS: INSULIN LISPRO 100 UNITS/ML SUBCUT SCH ×4 (05:58→17:20)
[2019-08-13] MEDS: BLOOD SUGAR DIAGNOSTIC STRIP TEST SCH ×4 (05:59→17:12)
[2019-08-13 06:01] LABS: BASOPHILS % 0.4 % (0.0-2.0); EOSINOPHILS % 0.9 % (0.0-5.0); HEMATOCRIT. 28.5 % (36.0-48.0); HEMOGLOBIN. 9.3 g/dL (12.0-16.0); LYMPHOCYTES % 7.4 % (20.0-50.0); MEAN CORPUSCULAR HEMOGLOBIN 28.4 pg (28.0-32.0); MEAN CORPUSCULAR VOLUME 87.5 fL (81.0-99.0); MEAN PLATELET VOLUME 7.4 fl (7.4-10.4); MONOCYTES % 4.2 % (2.0-8.0); NEUTROPHILS % 87.1 % (40.0-76.0); PLATELET 227 x1000/uL (130-400); RED BLOOD CELL COUNT 3.26 mill/uL (4.2-5.4); RED CELL DISTRIBUTION WIDTH 16.8 % (11.6-14.6)
[2019-08-13 06:57] LABS: CHLORIDE 107 mEq/L (98-107)
[2019-08-13 07:08] LABS: PHOSPHORUS 5.1 mg/dL (2.5-4.9)
[2019-08-13] MEDS: FAMOTIDINE 20MG/2ML VIAL IV SCH (09:12)
[2019-08-13 14:35] LABS: CLARITY URINE TURBID (CLEAR); COLOR URINE DARK YELLOW (YELLOW); KETONES URINE NEGATIVE (NEGATIVE); LEUKOCYTE ESTERASE URINE 3+ (NEGATIVE); NITRITE URINE NEGATIVE (NEGATIVE); OCCULT BLOOD URINE 2+ (NEGATIVE); PH URINE 7.5 (4.5-8.0); PROTEIN URINE 1+ (NEGATIVE); SPECIFIC GRAVITY URINE 1.013 (1.005-1.030)
[2019-08-13] MEDS: MICAFUNGIN 100MG in NORMAL SALINE 100ML IV SCH (15:07)
[2019-08-13] MEDS: [UNRECOGNIZED DRUG - REMARK] IV SCH ×5 (15:13)
[2019-08-13] MEDS: HYDROMORPHONE HCL/PF 2MG/ML CPJ IV PRN (15:15)
[2019-08-14] VITALS (8 sets, daily range): BP systolic 121–165; BP diastolic 62–112
[2019-08-14] MEDS: BLOOD SUGAR DIAGNOSTIC STRIP TEST SCH ×5 (00:10→23:24)
[2019-08-14] MEDS: METOCLOPRAMIDE HCL 10MG/2ML VIAL IV SCH ×5 (00:10→23:24)
[2019-08-14] MEDS: DEXT 5%/0.45% NACL KCL 30MEQ/L 1,000 ML IV SCH ×2 (05:53→18:30)
[2019-08-14] MEDS: INSULIN LISPRO 100 UNITS/ML SUBCUT SCH ×4 (05:53→23:25)
[2019-08-14] MEDS ORDERED: BUPIVACAINE HCL 0.5% (5MG/ML) 50ML ONE (07:00)
[2019-08-14] MEDS ORDERED: ROCURONIUM BROMIDE 10MG/ML VIAL 5ML IV ONE ×2 (07:12→07:44)
[2019-08-14] MEDS ORDERED: MIDAZOLAM HCL 5 MG/5 ML VIAL ONE (07:45)
[2019-08-14] MEDS ORDERED: FENTANYL CITRATE/PF 50MCG/ML 2ML VIAL ONE (07:53)
[2019-08-14] MEDS ORDERED: MEPERIDINE HCL/PF 25MG/ML CPJ IV PRN (09:15)
[2019-08-14] MEDS ORDERED: ONDANSETRON HCL 4MG/2ML INJ IV PRN (09:15)
[2019-08-14] MEDS ORDERED: MORPHINE SULFATE 2 MG/ML CPJ (NOT FOR IM USE) IV PRN (09:15)
[2019-08-14] MEDS ORDERED: SODIUM CHLORIDE 0.9% 1,000 ML IV ONE (09:30)
[2019-08-14] MEDS: HYDROMORPHONE HCL/PF 2MG/ML CPJ IV PRN ×5 (09:54→10:44)
[2019-08-14] MEDS ORDERED: LABETALOL HCL 5MG/ML VIAL 20ML IV ONE (11:58)
[2019-08-14] MEDS ORDERED: LABETALOL 5MG/ML SYR 20 MG/4 ML SYRINGE IV SCH (12:00)
[2019-08-14] MEDS: MICAFUNGIN 100MG in NORMAL SALINE 100ML IV SCH (15:33)
[2019-08-14] MEDS: [UNRECOGNIZED DRUG - REMARK] IV SCH ×5 (15:33)
[2019-08-14] MEDS: FAMOTIDINE 20MG/2ML VIAL IV SCH (15:44)
[2019-08-14 17:14] LABS: BASOPHILS % 0.3 % (0.0-2.0); HEMATOCRIT. 26.5 % (36.0-48.0); HEMOGLOBIN. 8.5 g/dL (12.0-16.0); LYMPHOCYTES % 7.3 % (20.0-50.0); MEAN CORPUSCULAR HEMOGLOBIN 28.3 pg (28.0-32.0); MEAN CORPUSCULAR VOLUME 87.7 fL (81.0-99.0); MEAN PLATELET VOLUME 7.8 fl (7.4-10.4); MONOCYTES % 4.3 % (2.0-8.0); NEUTROPHILS % 88.1 % (40.0-76.0); PLATELET 132 x1000/uL (130-400); RED BLOOD CELL COUNT 3.02 mill/uL (4.2-5.4); RED CELL DISTRIBUTION WIDTH 17.1 % (11.6-14.6)
[2019-08-15] VITALS (10 sets, daily range): BP systolic 109–135; BP diastolic 56–103
[2019-08-15] MEDS: METOCLOPRAMIDE HCL 10MG/2ML VIAL IV SCH ×3 (05:30→17:55)
[2019-08-15] MEDS: INSULIN LISPRO 100 UNITS/ML SUBCUT SCH ×3 (05:30→17:55)
[2019-08-15] MEDS: BLOOD SUGAR DIAGNOSTIC STRIP TEST SCH ×3 (05:30→17:19)
[2019-08-15] MEDS: DEXT 5%/0.45% NACL KCL 30MEQ/L 1,000 ML IV SCH (07:00)
[2019-08-15] MEDS: FAMOTIDINE 20MG/2ML VIAL IV SCH (09:16)
[2019-08-15] MEDS ORDERED: DEXT 5%/0.45% NACL KCL 30MEQ/L 1,000 ML IV ONE (10:15)
[2019-08-15] MEDS: MICAFUNGIN 100MG in NORMAL SALINE 100ML IV SCH (13:41)
[2019-08-15] MEDS: ACETAMINOPHEN 650MG SUPP PR PRN (15:14)
[2019-08-15] MEDS ORDERED: [UNRECOGNIZED DRUG - REMARK] IV ONE ×4 (23:00)
[2019-08-16] VITALS (8 sets, daily range): BP systolic 121–141; BP diastolic 63–101
[2019-08-16] MEDS: BLOOD SUGAR DIAGNOSTIC STRIP TEST SCH ×4 (00:04→17:43)
[2019-08-16] MEDS: METOCLOPRAMIDE HCL 10MG/2ML VIAL IV SCH ×4 (00:15→17:43)
[2019-08-16] MEDS: INSULIN LISPRO 100 UNITS/ML SUBCUT SCH ×4 (06:00→17:49)
[2019-08-16 07:25] LABS: BASOPHILS % 0.2 % (0.0-2.0); EOSINOPHILS % 0.4 % (0.0-5.0); HEMATOCRIT. 21.4 % (36.0-48.0); HEMOGLOBIN. 7.2 g/dL (12.0-16.0); LYMPHOCYTES % 8.5 % (20.0-50.0); MEAN CORPUSCULAR HEMOGLOBIN 28.8 pg (28.0-32.0); MEAN PLATELET VOLUME 9.2 fl (7.4-10.4); MONOCYTES % 6.1 % (2.0-8.0); NEUTROPHILS % 84.8 % (40.0-76.0); PLATELET 129 x1000/uL (130-400); RED BLOOD CELL COUNT 2.49 mill/uL (4.2-5.4); RED CELL DISTRIBUTION WIDTH 16.8 % (11.6-14.6)
[2019-08-16 08:37] LABS: CHLORIDE 109 mEq/L (98-107)
[2019-08-16 08:53] LABS: PHOSPHORUS 1.6 mg/dL (2.5-4.9)
[2019-08-16] MEDS ORDERED: MAGNESIUM 2 G PREMIX 50 ML IV NR (09:30)
[2019-08-16] MEDS: FAMOTIDINE 20MG/2ML VIAL IV SCH (09:57)
[2019-08-16] MEDS: ACETAMINOPHEN 650MG SUPP PR PRN ×2 (09:57→21:35)
[2019-08-16] MEDS ORDERED: SODIUM PHOS,M-BASIC-D-BASIC 30 MM in DEXT 5% WATER 500 ML IV NR (10:00)
[2019-08-16] MEDS: MICAFUNGIN 100MG in NORMAL SALINE 100ML IV SCH (15:51)
[2019-08-16] MEDS: ACETAMINOPHEN 650MG/20.3ML UDC PO PRN (21:25)
[2019-08-17] VITALS (12 sets, daily range): BP systolic 101–154; BP diastolic 29–91
[2019-08-17] MEDS: METOCLOPRAMIDE HCL 10MG/2ML VIAL IV SCH ×5 (01:09→23:41)
[2019-08-17] MEDS: INSULIN LISPRO 100 UNITS/ML SUBCUT SCH ×5 (06:00→23:47)
[2019-08-17] MEDS: BLOOD SUGAR DIAGNOSTIC STRIP TEST SCH ×5 (06:52→23:42)
[2019-08-17] MEDS: FAMOTIDINE 20MG/2ML VIAL IV SCH (09:09)
[2019-08-17] MEDS: DIPHENHYDRAMINE 50MG/ML VIAL IV PRN ×2 (09:09→15:46)
[2019-08-17 15:32] LABS: HEMATOCRIT. 23.4 % (36.0-48.0); HEMOGLOBIN. 7.8 g/dL (12.0-16.0); MEAN CORPUSCULAR HEMOGLOBIN 28.5 pg (28.0-32.0); MEAN PLATELET VOLUME 8.7 fl (7.4-10.4); PLATELET 193 x1000/uL (130-400); RED BLOOD CELL COUNT 2.73 mill/uL (4.2-5.4); RED CELL DISTRIBUTION WIDTH 17.1 % (11.6-14.6)
[2019-08-17] MEDS: MICAFUNGIN 100MG in NORMAL SALINE 100ML IV SCH (15:46)
[2019-08-17 16:04] LABS: PLATELET ESTIMATE NORMAL
[2019-08-18] VITALS (12 sets, daily range): BP systolic 72–186; BP diastolic 35–93
[2019-08-18] MEDS: BLOOD SUGAR DIAGNOSTIC STRIP TEST SCH ×3 (05:02→17:21)
[2019-08-18] MEDS: METOCLOPRAMIDE HCL 10MG/2ML VIAL IV SCH ×3 (05:02→17:20)
[2019-08-18] MEDS: INSULIN LISPRO 100 UNITS/ML SUBCUT SCH ×3 (05:05→17:21)
[2019-08-18] MEDS: ACETAMINOPHEN 650MG/20.3ML UDC PO PRN (07:03)
[2019-08-18] MEDS ORDERED: FUROSEMIDE 20MG/2ML VIAL IVP ONE (07:45)
[2019-08-18] MEDS ORDERED: AMLODIPINE 5MG TABLET PO PRN (07:45)
[2019-08-18] MEDS ORDERED: TRAMADOL HCL/ACETAMINOPHEN 37.5/325MG TABLET PO PRN (08:30)
[2019-08-18] MEDS ORDERED: HYDROMORPHONE HCL/PF 2MG/ML CPJ IV PRN (08:30)
[2019-08-18] MEDS: FAMOTIDINE 20MG/2ML VIAL IV SCH (08:37)
[2019-08-18] MEDS ORDERED: NON FORMULARY PATIENT HOME MED XX SCH (09:00)
[2019-08-18] MEDS: DEXTROSE 50% WATER 50ML SYRINGE IV PRN ×2 (11:31→17:20)
[2019-08-18 13:45] LABS: HEMOGLOBIN. 7.9 g/dL (12.0-16.0); MEAN CORPUSCULAR HEMOGLOBIN 28.3 pg (28.0-32.0); MEAN CORPUSCULAR VOLUME 100.1 fL (81.0-99.0); MEAN PLATELET VOLUME 8.8 fl (7.4-10.4); PLATELET 185 x1000/uL (130-400); RED CELL DISTRIBUTION WIDTH 18.5 % (11.6-14.6)
[2019-08-18 14:16] LABS: PLATELET ESTIMATE NORMAL
== END 2019-08-18 21:46 | disposition expired | DRG 870 ==
LOC: ER 12:49 → 5EST 17:15 → EDBEDREQ 17:27 → ENRESERV 22:15
PROVIDERS: ADMIT Internal Medicine; ATTEND Internal Medicine
PROC: 02H633Z Insertion of Infusion Device into Right Atrium, Percutaneous Approach (ICD-10-PCS; principal; 2019-08-08)
PROC: B548ZZA Ultrasonography of Superior Vena Cava, Guidance (ICD-10-PCS; 2019-08-08)
PROC: 0DHA3UZ Insertion of Feeding Device into Jejunum, Percutaneous Approach (ICD-10-PCS; 2019-08-08)
PROC: 5A1955Z Respiratory Ventilation, Greater than 96 Consecutive Hours (ICD-10-PCS; 2019-08-14)
PROC: 0DHA0UZ Insertion of Feeding Device into Jejunum, Open Approach (ICD-10-PCS; 2019-08-14)
DX: A41.9 Sepsis, unspecified organism (principal); E43 Unspecified severe protein-calorie malnutrition; J96.90 Respiratory failure, unspecified, unspecified whether with hypoxia or hypercapnia; K22.10 Ulcer of esophagus without bleeding; N17.9 Acute kidney failure, unspecified; C16.9 Malignant neoplasm of stomach, unspecified; R64 Cachexia; C78.6 Secondary malignant neoplasm of retroperitoneum and peritoneum; N39.0 Urinary tract infection, site not specified; E86.0 Dehydration; K56.41 Fecal impaction; D63.8 Anemia in other chronic diseases classified elsewhere; F03.90 Unspecified dementia, unspecified severity, without behavioral disturbance, psychotic disturbance, mood disturbance, and anxiety; F20.9 Schizophrenia, unspecified; K22.8 Other specified diseases of esophagus; K52.9 Noninfective gastroenteritis and colitis, unspecified; K57.90 Diverticulosis of intestine, part unspecified, without perforation or abscess without bleeding; E11.649 Type 2 diabetes mellitus with hypoglycemia without coma; I11.9 Hypertensive heart disease without heart failure; K21.9 Gastro-esophageal reflux disease without esophagitis; K66.0 Peritoneal adhesions (postprocedural) (postinfection); F29 Unspecified psychosis not due to a substance or known physiological condition; L30.9 Dermatitis, unspecified; R62.7 Adult failure to thrive; Z66 Do not resuscitate; Z79.899 Other long term (current) drug therapy; F41.9 Anxiety disorder, unspecified; Z90.3 Acquired absence of stomach [part of]; Z79.51 Long term (current) use of inhaled steroids; Z85.028 Personal history of other malignant neoplasm of stomach; Z90.49 Acquired absence of other specified parts of digestive tract; Z93.1 Gastrostomy status; Z93.4 Other artificial openings of gastrointestinal tract status; Z88.2 Allergy status to sulfonamides; Z88.8 Allergy status to other drugs, medicaments and biological substances; Z93.0 Tracheostomy status
CPT/HCPCS: 36415; 36600; 71045; 74018; 74176; 76700; 76937; 80048; 80061; 80069; 80076; 80202; 81003; 82150; 82248; 82306; 82375; 82805; 82962; 83036; 83540; 83550; 83605; 83735; 84100; 84132; 84145; 84439; 84443; 84450; 84460; 84481; 84484; 84550; 85651; 86850; 86900; 87106; 93005; 93306; 93970; 94002; 94003; 94640; 94660; 99291; A6261; C1725; C1758; C1769; C1893; C9113; J1170; J1200; J1450; J1650; J1815; J1940; J2248; J2250; J2405; J2543; J2765; J3010; J3370; J3411; J3475; J3480; J3490; J7030; J7040; J7050; J7060; J7070; P9047; Q9963; A4315